=== PATIENT | female | born 2000 | race Caucasian/White ===

== ENCOUNTER 2019-08-06 16:44 | Emergency (ER) | payer SELFPAY ==
[2019-08-06 17:13] LABS: Urine Blood NEGATIVE (NEG); Urine Glucose NEGATIVE (NEG); Urine Protein TRACE (NEG); Urine Specific Gravity >1.030 (1.005-1.030)
[2019-08-06] MEDS ORDERED: AZITHROMYCIN 250 MG TAB ONE (17:44)
[2019-08-06] MEDS ORDERED: LIDOCAINE 1% MPF 2 ML AMPULE ONE (17:44)
[2019-08-06] MEDS ORDERED: CEFTRIAXONE 250 MG/VIAL ONE (17:44)
[2019-08-06 18:13] LABS: Urine Bacteria <20 /HPF (<20); Urine Culture Reflex Order NOT NEEDED; Urine Mucus HEAVY /HPF (NONE SEEN); Urine RBC <5 /HPF (NONE SEEN)
--- NOTE | 2019-08-06 18:22 | EDPHYS ---
Physician Documentation [facility] Name: Severiano Quevedo Age: 19 yrs Sex: Female : 2000 Arrival Date: 08/06/2019 Time: 16:46 Bed 13 Private MD: ED Physician Matthew Villarreal HPI: 08/06 17:20 This 19 yrs old Female presents to ER via Ambulatory with complaints of kb Vaginal Itching, Possible STI. 17:20 The patient presents with a possible exposure to a sexually transmitted disease, kb gonorrhea, urinary symptoms, dysuria. Onset: The symptoms/episode began/occurred today. Modifying factors: The symptoms are alleviated by nothing, the symptoms are aggravated by urinating. Associated signs and symptoms: Pertinent positives: dysuria. Severity of symptoms: At their worst the symptoms were mild, in the emergency department the symptoms are unchanged. The patient is sexually active, reportedly has a single partner, does not use protection during intercourse. The patient has not experienced similar symptoms in the past. The patient has not recently seen a physician. Pt reports her boyfriend was diagnosed with gonorrhea yesterday so she came to get tested. Denies vaginal discharge. Reports dysuria, but states "I get UTIs all the time." . 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 - Coronavirus screen:: The patient has NOT traveled to [place], [place], or [place] in the past 14 days. Proceed with normal triage process as indicated. - Social history:: Smoking status: Reported history of juuling and/or vaping. - Ebola Screening: : No symptoms or risks identified at this time. ROS: 17:19 Constitutional: Negative for fever, chills, and weight loss, Neck: Negative for injury, kb pain, and swelling, Cardiovascular: Negative for chest pain, palpitations, and edema, Respiratory: Negative for shortness of breath, cough, wheezing, and pleuritic chest pain, Abdomen/GI: Negative for abdominal pain, nausea, vomiting, diarrhea, and constipation, Back: Negative for injury and pain, MS/Extremity: Negative for injury and deformity, Skin: Negative for injury, rash, and discoloration, Neuro: Negative for headache, weakness, numbness, tingling, and seizure. 17:19 : Positive for urinary symptoms, burning with urination. Exam: 17:19 Constitutional: This is a well developed, well nourished patient who is awake, alert, kb and in no acute distress. Head/Face: Normocephalic, atraumatic. Neck: Trachea midline, no thyromegaly or masses palpated, and no cervical lymphadenopathy. Supple, full range of motion without nuchal rigidity, or vertebral point tenderness. No Meningismus. Chest/axilla: Normal chest wall appearance and motion. Nontender with no deformity. No lesions are appreciated. Cardiovascular: Regular rate and rhythm with a normal S1 and S2. No gallops, murmurs, or rubs. Normal PMI, no JVD. No pulse deficits. Respiratory: Lungs have equal breath sounds bilaterally, clear to auscultation and percussion. No rales, rhonchi or wheezes noted. No increased work of breathing, no retractions or nasal flaring. Abdomen/GI: Soft, non-tender, with normal bowel sounds. No distension or tympany. No guarding or rebound. No evidence of tenderness throughout. Back: No spinal tenderness. No costovertebral tenderness. Full range of motion. Skin: Warm, dry with normal turgor. Normal color with no rashes, no lesions, and no evidence of cellulitis. MS/ Extremity: Pulses equal, no cyanosis. Neurovascular intact. Full, normal range of motion. Neuro: Awake and alert, GCS 15, oriented to person, place, time, and situation. Cranial nerves II-XII grossly intact. Motor strength 5/5 in all extremities. Sensory grossly intact. Cerebellar exam normal. Normal gait. Vital Signs: 16:52 BP 116 / 81; Pulse 97; Resp 19 S; Temp 98.2(O); Pulse Ox 100% on R/A; Pain 0/10; jl7 17:52 BP 115 / 79; Pulse 92; Resp 17 S; Temp 97.9(O); Pulse Ox 100% on R/A; ca1 MDM: 16:54 Patient medically screened. kb 17:18 Data reviewed: vital signs, nurses notes. Data interpreted: Pulse oximetry: on room air kb is 100 %. Interpretation: normal. Counseling: I had a detailed discussion with the patient and/or guardian regarding: the historical points, exam findings, and any diagnostic results supporting the discharge/admit diagnosis, lab results, the need for outpatient follow up, an OB/Gyne specialist, to return to the emergency department if symptoms worsen or persist or if there are any questions or concerns that arise at home. 08/06 16:52 Order name: Urine Microscopic Only; Complete Time: 18:17 kb 08/06 17:11 Order name: Urine --Ancillary (enter results) kb 08/06 17:11 Order name: Urine Dipstick--Ancillary (enter results) kb 08/06 17:14 Order name: Urine --Ancillary; Complete Time: 17:18 EDMS 08/06 17:14 Order name: Urine Dipstick-Ancillary; Complete Time: 17:18 EDMS 08/06 16:52 Order name: Urine Test (obtain specimen); Complete Time: 17:11 kb 08/06 16:52 Order name: Urine Dipstick-Ancillary (obtain specimen); Complete Time: 17:10 kb Administered Medications: 17:45 Drug: Zithromax 1 grams Route: PO; ca1 18:08 Follow up: Response: No adverse reaction ca1 18:30 Follow up: Response: No adverse reaction ca1 17:48 Drug: Rocephin (cefTRIAXone) 250 mg Route: IM; Site: right gluteus; ca1 18:08 Follow up: Response: No adverse reaction ca1 18:30 Follow up: Response: No adverse reaction ca1 08/07 11:17 Not Given (Patient Refused): Zofran 4 mg PO once ca1 Disposition: 07:26 Co-signature as Attending Physician, Matthew Villarreal MD I agree with the assessment and ting plan of care. Disposition: 08/06/19 18:17 Discharged to Home. Impression: Unspecified sexually transmitted disease. - Condition is Stable. - Discharge Instructions: Sexually Transmitted Disease, [id number]. - Medication Reconciliation Form, Thank You Letter, Antibiotic Education, Prescription Opioid Use form. - Follow up: Emergency Department; When: As needed; Reason: Worsening of condition. Follow up: Private Physician; When: 2 - 3 days; Reason: Recheck today's complaints, Continuance of care, Re-evaluation by your physician. Signatures: Dispatcher [employer] Clara Franco, BILLBOARD ERECTOR HELPER-C BILLBOARD ERECTOR HELPER-Matthew Blanco MD MD cha Leal, Jahala, RN RN jl7 Aaliyah Portillo RN RN ca1 Corrections: (The following items were deleted from the chart) 08/06 18:37 18:17 08/06/2019 18:17 Discharged to Home. Impression: Unspecified sexually transmitted ca1 disease. Condition is Stable. Forms are Medication Reconciliation Form, Thank You Letter, Antibiotic Education, Prescription Opioid Use. Follow up: Emergency Department; When: As needed; Reason: Worsening of condition. Follow up: Private Physician; When: 2 - 3 days; Reason: Recheck today's complaints, Continuance of care, Re-evaluation by your physician. kb
--- NOTE | 2019-08-06 18:22 | ER ---
Nurse's Notes [facility] Name: Severiano Quevedo Age: 19 yrs Sex: Female : 2000 Arrival Date: 08/06/2019 Time: 16:46 Bed 13 Private MD: Diagnosis: Unspecified sexually transmitted disease Presentation: 08/06 16:48 Presenting complaint: Patient states: I need to be tested for gonorrhea, the mary I'm jl7 seing got his results back and he's positive. I'm having lower abdominal pain and mild burning with urination for a couple days but no other symptoms, no itching, no foul odor. Transition of care: patient was not received from another setting of care. Onset of symptoms was August 02, 2019. Risk Assessment: Do you want to hurt yourself or someone else? Patient reports no desire to harm self or others. Initial Sepsis Screen: Does the patient meet any 2 criteria? No. Patient's initial sepsis screen is negative. Does the patient have a suspected source of infection? No. Patient's initial sepsis screen is negative. Care prior to arrival: None. 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 - Coronavirus screen:: The patient has NOT traveled to [place], [place], or [place] in the past 14 days. Proceed with normal triage process as indicated. - Social history:: Smoking status: Reported history of juuling and/or vaping. - Ebola Screening: : No symptoms or risks identified at this time. Screenin:00 Abuse screen: Denies threats or abuse. Denies injuries from another. Nutritional ca1 screening: No deficits noted. Tuberculosis screening: No symptoms or risk factors identified. Fall Risk None identified. Assessment: 17:00 General: Appears in no apparent distress. comfortable, Behavior is calm, cooperative, ca1 appropriate for age. Pain: Denies pain. Neuro: Level of Consciousness is awake, alert, obeys commands, Oriented to person, place, time, situation, Appropriate for age. : Reports I do not have any symptoms but my partner is diagnosed with Gonorrhea so I come here to get tested and treated. Derm: Skin is intact, is healthy with good turgor, Skin is pink, warm \T\ dry. Musculoskeletal: Circulation, motion, and sensation intact. Capillary refill < 3 seconds, Range of motion: intact in all extremities. 17:52 Reassessment: Patient appears in no apparent distress at this time. Patient is alert, ca1 oriented x 3, equal unlabored respirations, skin warm/dry/pink. Vital Signs: 16:52 BP 116 / 81; Pulse 97; Resp 19 S; Temp 98.2(O); Pulse Ox 100% on R/A; Pain 0/10; jl7 17:52 BP 115 / 79; Pulse 92; Resp 17 S; Temp 97.9(O); Pulse Ox 100% on R/A; ca1 ED Course: 16:46 Patient arrived in ED. as 16:51 Triage completed. jl7 16:52 Clara Coleman FNP-C is PHCP. kb 16:52 Matthew Villarreal MD is Attending Physician. kb 16:52 Arm band placed on right wrist. jl7 17:00 Patient has correct armband on for positive identification. Bed in low position. Call ca1 light in reach. Side rails up X 1. 17:00 No provider procedures requiring assistance completed. Patient did not have IV access ca1 during this emergency room visit. 17:04 Aaliyah Portillo, RN is Primary Nurse. ca1 Administered Medications: 17:45 Drug: Zithromax 1 grams Route: PO; ca1 18:08 Follow up: Response: No adverse reaction ca1 18:30 Follow up: Response: No adverse reaction ca1 17:48 Drug: Rocephin (cefTRIAXone) 250 mg Route: IM; Site: right gluteus; ca1 18:08 Follow up: Response: No adverse reaction ca1 18:30 Follow up: Response: No adverse reaction ca1 08/07 11:17 Not Given (Patient Refused): Zofran 4 mg PO once ca1 Outcome: 08/06 18:17 Discharge ordered by . kb 18:36 Discharged to home ambulatory, with significant other. ca1 18:36 Condition: stable 18:36 Discharge instructions given to patient, Instructed on discharge instructions, follow up and referral plans. safe sex practices, Demonstrated understanding of instructions, follow-up care. 18:37 Patient left the ED. ca1 Signatures: Clara Coleman, IVETTE HIGHTOWER-Mini Savage Jahala, RN RN jl7 Aaliyah Portillo RN RN ca1
[2019-08-06 20:34] VITALS: O2SAT 100
[2019-08-06 20:35] VITALS: BP 115/79; TEMP 97.9
== END 2019-08-06 18:37 | disposition home or self-care (01) ==
LOC: ER 16:44
DX: A64 Unspecified sexually transmitted disease (principal)
CPT/HCPCS: 81003; 81015; 81025; 96372; 99283; J0696; J2001

== ENCOUNTER 2020-01-24 18:28 | Emergency (ER) | payer SELFPAY ==
[2020-01-24 19:55] LABS: Absolute Lymphocytes (CBC) 1.7 K/uL (0.7-4.9); Basophils % 0.1 % (0-1.3); Hematocrit 40.6 % (36.0-45.0); Lymphocytes % 22.3 % (15.3-44.8); RBC Red Blood Cell Count 4.82 M/uL (3.86-4.86)
[2020-01-24 20:03] LABS: Protime INR 0.97
[2020-01-24 20:04] LABS: Barbiturates NEGATIVE (NEGATIVE); Benzodiazepines NEGATIVE (NEGATIVE); Cocaine NEGATIVE (NEGATIVE); METHAMPHETAM NEGATIVE (NEGATIVE); Methadone NEGATIVE (NEGATIVE); Opiates NEGATIVE (NEGATIVE); Phencyclidine NEGATIVE (NEGATIVE); THC Cannibis NEGATIVE (NEGATIVE)
--- NOTE | 2020-01-24 20:09 | RAD REPORT ---
EXAM DESCRIPTION: [place] Single View01/24/2020 7:58 pm CLINICAL HISTORY: Palpitations COMPARISON: 2014 FINDINGS: The lungs appear clear of acute infiltrate. The heart is normal size IMPRESSION: No acute abnormalities displayed
[2020-01-24 20:21] LABS: ALT/SGPT 16 U/L (12-78); AST/SGOT 14 U/L (15-37); Albumin 4.4 g/dL (3.4-5.0); Alkaline Phosphatase 62 U/L (45-117); BUN Blood Urea Nitrogen 10 mg/dL (7-18); Bicarbonate 25 mmol/L (21-32); Bilirubin Direct 0.1 mg/dL (0-0.2); Bilirubin Total 0.4 mg/dL (0.2-1.0); Glucose Level 74 mg/dL (74-106); Magnesium 2.2 mg/dL (1.8-2.4); NT PRO-BNP 12 pg/mL (<125); Potassium 3.6 mmol/L (3.5-5.1); Protein, Total 7.8 g/dL (6.4-8.2); Sodium Level 143 mmol/L (136-145); Troponin (Emerg Dept Use Only) < 0.02 ng/mL (0.0-0.045)
[2020-01-24 20:39] LABS: Urine Blood NEGATIVE (NEG); Urine Glucose NEGATIVE (NEG); Urine Protein NEGATIVE (NEG); Urine Specific Gravity 1.015 (1.005-1.030)
--- NOTE | 2020-01-24 22:09 | ER ---
Nurse's Notes [facility] Name: Severiano Quevedo Age: 19 yrs Sex: Female : 2000 Arrival Date: 01/24/2020 Time: 18:33 Bed 19 Private MD: Diagnosis: Chest Pain;Dizziness;Dyspnea;Anxiety;Urinary tract infection, site not specified Presentation: 01/23 18:37 Chief complaint: Patient states: woke up this morning with purple feet, went to work. sv Went to eat and started having SOB, chest pain, with sharp right sided chest pain, intermittent blurry vision, fatigue, and right leg pain/numbness today. States she felt jittery about an hour ago and now feels like her body feels stiff, foggy headed, dizziness, nausea. Coronavirus screen: Patient denies a cough. Patient reports shortness of breath or difficulty breathing. Patient denies measured and/or subjective temperature greater than 100.4F prior to today's visit. Patient denies travel on a cruise ship or to a country the [facility] currently lists as an affected area. Patient denies contact with known and/or suspected case of COVID-19. Patient instructed to continue to wear a mask when interacting with others. Patient moved to private room, placed in contact and droplet isolation with eye protection until further assessment. Ebola Screen: No symptoms or risks identified at this time. Risk Assessment: Do you want to hurt yourself or someone else? Patient reports no desire to harm self or others. Onset of symptoms was January 24, 2020. 18:37 Method Of Arrival: Ambulatory sv 18:37 Acuity: SIMON 2 sv 18:37 Initial Sepsis Screen: Does the patient meet any 2 criteria? HR > 90 bpm. No. Patient's sv initial sepsis screen is negative. Does the patient have a suspected source of infection? No. Patient's initial sepsis screen is negative. 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 - Social history:: Smoking status: Reported history of juuling and/or vaping. Screenin:12 Abuse screen: Denies threats or abuse. Nutritional screening: No deficits noted. ll1 Tuberculosis screening: No symptoms or risk factors identified. Fall Risk None identified. IV access (20 points). Total Whelan Fall Scale indicates No Risk (0-24 pts). Assessment: 19:10 General: Appears in no apparent distress. Behavior is calm, cooperative, appropriate ll1 for age. Pain: Complains of pain in right chest Quality of pain is described as sharp, Pain began 4 hours ago. Is intermittent. Neuro: Level of Consciousness is awake, alert, obeys commands, Oriented to person, place, time, situation, Appropriate for age [employer] are equal bilaterally Moves all extremities. Full function Gait is steady, Speech is normal, Facial symmetry appears normal, Reports dizziness, headache paresthesias. Cardiovascular: Reports chest pain, fatigue, lightheadedness, shortness of breath, Heart tones S1 S2 Capillary refill < 3 seconds Clubbing of nail beds is absent JVD is absent Patient's skin is warm and dry. Rhythm is regular. Respiratory: Reports shortness of breath at rest Airway is patent Trachea midline Respiratory effort is even, unlabored, Respiratory pattern is regular, symmetrical, Breath sounds are clear bilaterally. Denies cough. GI: Abdomen is flat, Bowel sounds present X 4 quads. Abd is soft and non tender X 4 quads. Reports nausea. Musculoskeletal: Circulation, motion, and sensation intact. Capillary refill < 3 seconds, Reports pain in R leg. 19:53 Pain: Denies pain. mt2 20:00 Reassessment: Patient and/or family updated on plan of care and expected duration. Pain mt2 level reassessed. Patient states feeling better. Pain: Denies pain. 21:00 Also complains of no other symptoms. Reassessment: Patient and/or family updated on mt2 plan of care and expected duration. Pain level reassessed. Patient states symptoms have improved. Pain: Denies pain. 22:00 Reassessment: Patient and/or family updated on plan of care and expected duration. Pain mt2 level reassessed. Patient states feeling better. Patient states symptoms have improved. Pain: Denies pain. 22:30 Pain: Pain does not radiate. mt2 Vital Signs: 18:40 BP 121 / 85; Pulse 106; Resp 14; Temp 98.2; Pulse Ox 100% ; Weight 52.16 kg; Height 5 sv ft. 2 in. (157.48 cm); 19:53 BP 100 / 64; Pulse 72; Resp 16; Pulse Ox 100% ; Pain 0/10; mt2 20:00 BP 110 / 77; Pulse 73; Resp 16; Pulse Ox 99% ; Pain 0/10; mt2 21:00 BP 119 / 71; Pulse 79; Resp 16; Pulse Ox 100% ; Pain 0/10; mt2 22:29 BP 109 / 72; Pulse 70; Resp 16; Pulse Ox 99% ; Pain 0/10; mt2 18:40 Body Mass Index 21.03 (52.16 kg, 157.48 cm) sv ED Course: 18:33 Patient arrived in ED. bp1 18:36 Arm band placed on. sv 18:39 Triage completed. sv 18:43 Rupert Montejo, RN is Primary Nurse. ll1 18:55 EKG done, by ED staff, reviewed by Ralph Fenton MD. jp3 19:02 Ralph Fenton MD is Attending Physician. mh7 19:12 Patient has correct armband on for positive identification. Placed in gown. Bed in low ll1 position. Call light in reach. 19:32 Primary Nurse role handed off by Rupert Montejo RN mt2 19:32 Zhanna Newsome, ARELY is Primary Nurse. mt2 19:37 Initial lab(s) drawn, by mt, sent to lab. Urine collected: clean catch specimen, clear, jp3 lashon colored, Legal drug screen obtained per protocol. Inserted saline lock: 20 gauge in right antecubital area, using aseptic technique. Blood collected. Patient maintains SpO2 saturation greater than 95% on room air. 19:53 monitoring tech on. Pulse ox on. NIBP on. mt2 19:58 XRAY Chest (1 view) In Process Unspecified. EDMS 21:22 CT Head Brain wo Cont In Process Unspecified. EDMS 22:29 No provider procedures requiring assistance completed. IV discontinued, intact, mt2 bleeding controlled, No redness/swelling at site. Pressure dressing applied. Administered Medications: No medications were administered Point of Care Testing: Urine : 19:37 hCG Reading: Negative; Control Reading: Positive; jp3 Outcome: 22:08 Discharge ordered by . 7 22:29 Discharged to home ambulatory. mt2 22:29 Condition: good 22:29 Discharge instructions given to patient, Instructed on discharge instructions, follow up and referral plans. medication usage, Demonstrated understanding of instructions, follow-up care, medications, Prescriptions given X 1. 22:30 Patient left the ED. mt2 Signatures: Dispatcher [employer] EDMS Ceci Ruffin RN RN Eber Melvin jp3 Rupert Montejo RN RN ll1 Shabana Comer [facility] Ralph Fenton MD MD 7 Zhanna Newsome RN RN mt2 Corrections: (The following items were deleted from the chart) 18:42 18:37 Chief complaint: Patient states: woke up this morning with purple feet, went to work. Went to eat and started having SOB, chest pain, with sharp right sided chest pain, intermittent blurry vision, fatigue, and right leg pain/numbness today. 18:42 18:37 Acuity: SIMON 3 [facility]
--- NOTE | 2020-01-24 22:09 | EDPHYS ---
Physician Documentation [facility] Name: Severiano Quevedo Age: 19 yrs Sex: Female : 2000 Arrival Date: 01/24/2020 Time: 18:33 Bed 19 Private MD: ED Physician Ralph Fenton HPI: 01/23 19:18 This 19 yrs old Female presents to ER via Ambulatory with complaints of Chest mh7 Pain, Palpitations, Dizziness, Blurred Vision. 19:18 The patient or guardian reports chest pain that is located primarily in the anterior mh7 chest wall, right. The pain does not radiate. Associated signs and symptoms: Pertinent positives: dizziness, nausea, palpitations, shortness of breath, Pertinent negatives: abdominal pain, cough, diaphoresis, headache, lower extremity pain, lower extremity swelling, near syncope, recent travel, syncope, vomiting. The chest pain is described as tightness. Duration: The patient or guardian reports multiple episodes, that are intermittent, that wax and wane, with no pattern. Modifying factors: The symptoms are alleviated by nothing. the symptoms are aggravated by nothing. Severity of pain: At its worst the pain was moderate today, in the emergency department the pain has improved markedly. Patient states intermittent episodes of chest tightness, dizziness, palpitations, SOB, nausea for the past 2-3 weeks. She saw her PCP 2 days ago and had normal test results. She had symptoms reoccur today. She has a history of anxiety but has not taken any medication in the past. She admits some stress due to going through a divorce. She denies any depression, suicidal or homicidal ideation, or auditory or visual hallucinations.. 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 - Social history:: Smoking status: Reported history of juuling and/or vaping. ROS: 19:18 Constitutional: Negative for fever, chills, and weight loss, Eyes: Negative for injury, mh7 pain, redness, and discharge, ENT: Negative for injury, pain, and discharge, Neck: Negative for injury, pain, and swelling, Back: Negative for injury and pain, : Negative for injury, bleeding, discharge, and swelling, MS/Extremity: Negative for injury and deformity, Skin: Negative for injury, rash, and discoloration, Allergy/Immunology: Negative for hives, rash, and allergies, Endocrine: Negative for neck swelling, polydipsia, polyuria, polyphagia, and marked weight changes, Hematologic/Lymphatic: Negative for swollen nodes, abnormal bleeding, and unusual bruising. Exam: 19:18 Head/Face: Normocephalic, atraumatic. Eyes: Pupils equal round and reactive to light, mh7 extra-ocular motions intact. Lids and lashes normal. Conjunctiva and sclera are non-icteric and not injected. Cornea within normal limits. Periorbital areas with no swelling, redness, or edema. Neck: Trachea midline, no thyromegaly or masses palpated, and no cervical lymphadenopathy. Supple, full range of motion without nuchal rigidity, or vertebral point tenderness. No Meningismus. Chest/axilla: Normal chest wall appearance and motion. Nontender with no deformity. No lesions are appreciated. Cardiovascular: Regular rate and rhythm with a normal S1 and S2. No gallops, murmurs, or rubs. Normal PMI, no JVD. No pulse deficits. Respiratory: Lungs have equal breath sounds bilaterally, clear to auscultation and percussion. No rales, rhonchi or wheezes noted. No increased work of breathing, no retractions or nasal flaring. Abdomen/GI: Soft, non-tender, with normal bowel sounds. No distension or tympany. No guarding or rebound. No evidence of tenderness throughout. Back: No spinal tenderness. No costovertebral tenderness. Full range of motion. Skin: Warm, dry with normal turgor. Normal color with no rashes, no lesions, and no evidence of cellulitis. MS/ Extremity: Pulses equal, no cyanosis. Neurovascular intact. Full, normal range of motion. Neuro: Awake and alert, GCS 15, oriented to person, place, time, and situation. Cranial nerves II-XII grossly intact. Motor strength 5/5 in all extremities. Sensory grossly intact. Cerebellar exam normal. Normal gait. Psych: Awake, alert, with orientation to person, place and time. Behavior, mood, and affect are within normal limits. 19:18 Constitutional: The patient appears in no acute distress, alert, awake, anxious. 19:27 ECG was reviewed by the Attending Physician. [facility] Vital Signs: 18:40 BP 121 / 85; Pulse 106; Resp 14; Temp 98.2; Pulse Ox 100% ; Weight 52.16 kg; Height 5 sv ft. 2 in. (157.48 cm); 19:53 BP 100 / 64; Pulse 72; Resp 16; Pulse Ox 100% ; Pain 0/10; mt2 20:00 BP 110 / 77; Pulse 73; Resp 16; Pulse Ox 99% ; Pain 0/10; mt2 21:00 BP 119 / 71; Pulse 79; Resp 16; Pulse Ox 100% ; Pain 0/10; mt2 22:29 BP 109 / 72; Pulse 70; Resp 16; Pulse Ox 99% ; Pain 0/10; mt2 18:40 Body Mass Index 21.03 (52.16 kg, 157.48 cm) sv MDM: 19:15 Patient medically screened. [facility] 22:05 Differential diagnosis: acute myocardial infarction, acute pericarditis, anxiety, chest [facility] wall pain, costochondritis, pneumonia, pneumothorax, pulmonary embolus. HEART Score: History: Slightly Suspicious (0), ECG: Normal (0), Age: < or = 45 years (0), Risk Factors: No Risk Factors Known (0), Troponin: < or = 1 x Normal Limit (0), Total Score = 0. Data reviewed: vital signs, nurses notes, lab test result(s), cardiac enzymes, troponin i, CBC, electrolytes, urinalysis, urine drug screen. Data interpreted: pvc monitor: rate is 100 beats/min, rhythm is normal sinus rhythm, regular, Interpretation: normal rate, normal rhythm, Pulse oximetry: on room air is 100 %. Interpretation: normal. Counseling: I had a detailed discussion with the patient and/or guardian regarding: the historical points, exam findings, and any diagnostic results supporting the discharge/admit diagnosis, lab results, radiology results, the need for outpatient follow up, to return to the emergency department if symptoms worsen or persist or if there are any questions or concerns that arise at home. Response to treatment: the patient's symptoms have resolved after treatment, the patient's blood pressure is in an acceptable range, mental status has returned to baseline, the patient no longer shows bradycardia, the patient is not short of breath, the patient is not tachycardic, the patient's pain is gone, the patient's temperature has normalized. 01/23 19:17 Order name: Basic Metabolic Panel; Complete Time: 20:53 01/23 19:17 Order name: CBC with Diff; Complete Time: 20:53 01/23 19:17 Order name: LFT's; Complete Time: 20:53 7 01/23 19:17 Order name: Magnesium; Complete Time: 20:53 01/23 19:17 Order name: NT PRO-BNP; Complete Time: 20:53 01/23 19:17 Order name: PT-INR; Complete Time: 20:53 01/23 19:17 Order name: Troponin (emerg Dept Use Only); Complete Time: 20:53 01/23 19:17 Order name: XRAY Chest (1 view); Complete Time: 20:53 01/23 19:17 Order name: EKG; Complete Time: 19:18 01/23 19:17 Order name: DD; Complete Time: 20:53 01/23 19:17 Order name: UDS; Complete Time: 20:53 01/23 19:17 Order name: TSH; Complete Time: 20:53 01/23 19:55 Order name: Urine Dipstick--Ancillary (enter results); Complete Time: 20:53 [facility] 01/23 20:54 Order name: CT Head Brain wo Cont 01/23 19:17 Order name: Cardiac monitoring; Complete Time: 19:49 01/23 19:17 Order name: EKG - Nurse/Tech; Complete Time: 19:30 01/23 19:17 Order name: IV Saline Lock; Complete Time: 19:49 01/23 19:17 Order name: Labs collected and sent; Complete Time: 19:49 01/23 19:17 Order name: O2 Per Protocol; Complete Time: 19:49 01/23 19:17 Order name: O2 Sat Monitoring; Complete Time: 19:49 01/23 19:17 Order name: Urine Dipstick-Ancillary (obtain specimen); Complete Time: 19:49 01/23 19:17 Order name: Urine Test (obtain specimen); Complete Time: 19:49 mh7 EC:27 Rate is 88 beats/min. Rhythm is regular, Normal Sinus Rhythm. QRS [place] is Normal. [place] mh7 interval is normal. QRS interval is normal. QT interval is normal. No Q waves. T waves are Normal. No ST changes noted. Clinical impression: Normal ECG. Administered Medications: No medications were administered Point of Care Testing: Urine : 19:37 hCG Reading: Negative; Control Reading: Positive; jp3 Disposition: 01/24/20 22:08 Discharged to Home. Impression: Chest Pain, Dizziness, Dyspnea, Anxiety, Urinary tract infection, site not specified. - Condition is Stable. - Discharge Instructions: Urinary Tract Infection, Adult, Shortness of Breath, [id number], Nonspecific Chest Pain, [id number], Generalized Anxiety Disorder, Dizziness, [id number]. - Prescriptions for Keflex 500 mg Oral Capsule - take 1 capsule by ORAL route every 12 hours for 7 days; 14 capsule. - Medication Reconciliation Form, Thank You Letter, Antibiotic Education, Prescription Opioid Use form. - Follow up: Private Physician; When: 1 - 2 days; Reason: Worsening of condition, Recheck today's complaints, Continuance of care, Re-evaluation by your physician. - Problem is an ongoing problem. - Symptoms have improved. Signatures: Dispatcher [employer] Ceci Godinez RN RN Ralph Young MD MD [facility] Zhanna Newsome RN RN mt2 Corrections: (The following items were deleted from the chart) 22:30 22:08 01/24/2020 22:08 Discharged to Home. Impression: Chest Pain; Dizziness; Dyspnea; mt2 Anxiety; Urinary tract infection, site not specified. Condition is Stable. Forms are Medication Reconciliation Form, Thank You Letter, Antibiotic Education, Prescription Opioid Use. Follow up: Private Physician; When: 1 - 2 days; Reason: Worsening of condition, Recheck today's complaints, Continuance of care, Re-evaluation by your physician. Problem is an ongoing problem. Symptoms have improved. [facility]
[2020-01-24 22:40] VITALS: TEMP 98.2
[2020-01-24 22:49] VITALS: BP 109/72; O2SAT 99
--- NOTE | 2020-01-26 09:56 | RAD REPORT ---
EXAM DESCRIPTION: CT HEAD WITHOUT IV CONTRAST CLINICAL HISTORY: Dizziness. COMPARISON: None. TECHNIQUE: CT scan of the brain was performed without IV contrast. This exam was performed accordi ng to our departmental dose-optimization program, which includes automated exposure control, adjustme nt of the mA and/or kV according to patient size and/or use of iterative reconstruction technique. FINDINGS: The ventricles, cisterns, and sulci are age-appropriate. No evidence of acute infarction, intracranial hemorrhage, extra-axial fluid collection, or midline shift. No air-fluid levels are seen in the paranasal sinuses to suggest acute sinusitis. No depressed skull fracture. IMPRESSION: No acute intracranial findings. Electronically signed by: Mert Barrios MD 01/24/2020 9:33 PM CDT Due to temporary technical issues with the PACS/Fluency reporting system, reports are being signed by the in house radiologist without review as a courtesy to ensure prompt reporting. The interpreting r adiologist is fully responsible for the content of the report.
== END 2020-01-24 22:30 | disposition home or self-care (01) ==
LOC: ER 18:28
DX: F41.9 Anxiety disorder, unspecified (principal); R42 Dizziness and giddiness; R06.00 Dyspnea, unspecified; N39.0 Urinary tract infection, site not specified; Z72.0 Tobacco use
CPT/HCPCS: 36415; 70450; 71045; 80048; 80076; 80307; 81003; 83735; 83880; 84443; 84484; 85025; 85379; 85610; 93005; 99285

== ENCOUNTER 2022-01-27 07:20 | Emergency (ER) | payer SELFPAY ==
--- OUTSIDE RECORDS SUMMARY | 2022-01-27 07:23 | XMS REPORT | Continuity of Care Document ---
:2000 Author Organization [facility] t Address [address] [place] [address] Care Team Providers Name Role Phone Pcp, Does Not Have A Primary Care Physician CARISSA LOPEZ Attending Clinician Unavailable Carissa Lopez MD Attending Clinician 2, Lab Attending Clinician Unavailable BONIFACIO Attending Clinician Unavailable Bonifacio HERNANDEZ Attending Clinician Doctor Unassigned, Name Attending Clinician Unavailable SHOSHANA PARNELL Attending Clinician Unavailable Shoshana Black Attending Clinician RODRÍGUEZ Admitting Clinician Unavailable Payers Payer Name Policy Type Policy Number Effective Date Expiration Date [facility] [id number] 2021 CHOICE MEDICAID 00:00:00 Problems Condition Condition Condition Status Onset Resolution Last Treating Co mments Source Name Details Category Date Date Treatment Clinician Date High risk High risk Disease Active Uni vers , , 6-09 [place] Nausea and Nausea and Disease Active U nivers vomiting vomiting 09 ity of during during 00:00: [place] 00 Medi roney prior to prior to Branch 22 weeks 22 weeks gestation gestation Anxiety Anxiety Disease Active Univers disorder, disorder, 6-09 ity of unspecifie unspecifie [place] d type d type 00 Medical Branch Depression Depression Disease Active U nivers during during 6-09 [place]y of , , [place] antepartum antepartum 00 Dc dical Branch Anemia of Anemia of Disease Active Uni vers 5-19 ity of 00:00: [address] Branch Disease Active U nivers care and care and 5-18 [place]y of examinatio examinatio [place] 00 Medical immediatel immediatel Br anch y after y after delivery delivery Rh Rh Disease Active Overview: Univer s negative, negative, 5-18 Formattin i ty of delivered, delivered, 00:00: g of this [place] current current 00 note Medical hospitaliz hospitaliz might be Branch ation ation different from the original. 11/23/18 - Rhogam given 38 weeks 38 weeks Disease Active Unive rs gestation gestation 5-18 ity of of of 00:00: [place] 00 [facility] Branch Single Single Disease Active Univers live live 5-18 it y of 00:00: [address] Branch Disease Active Univers (normal (normal 5-18 ity of spontaneou spontaneou [place] vaginal s vaginal 00 [facility] delivery) delivery) Bran ch Primary Primary Disease Active Univers hypothyroi hypothyroi 6-07 it y of dism dism 00:00: [place] [id number] Medical Branch Primary Primary Disease Active Univers hypothyroi hypothyroi 6-07 it y of dism dism 00:00: [address] Allergies, Adverse Reactions, Alerts Allergy Allergy Status Severity Reaction(s) Onset Inactive Treating Comm ents Source Name Type Date Date Clinician NO KNOWN Drug Active Univers ALLERGIE Class ity of S [facility] Social History Social Habit Start Date Stop Date Quantity Comments Source ASSERTION 2021-10-28 University 00:00:00 [facility] Exposure to 2022-01-06 2022-01-16 Not sure [facility] SARS-CoV-2 00:00:00 15:51:00 [facility] (event) [place] Alcohol intake 2021-12-15 2021-12-15 [facility] 00:00:00 00:00:00 non-drinker of [facility] [place] [facility] alcohol (finding) [place] Tobacco use and 2018-10-28 2018-10-28 Smokeless tobacco Un iversity of exposure 00:00:00 00:00:00 non-user [facility] Sex Assigned At [birth year] Universit y of 00:00:00 00:00:00 [facility] Smoking Status Start Date Stop Date Source Never smoked tobacco [facility] Medications Ordered Filled Start Stop Current Ordering Indication Dosage Frequency Signature Comments Components Source Medication Medication Date Date Medication? Clinician (SIG) Name Name PN Yes Take by Univers no.95/angelique 7-11 mouth. ity of us 16:16: [place] fum/folic 56 Medical ac Branch ( ORAL) PNV 0 Yes Take by Univers no.95/angelique 7-11 mouth. ity of us 16:16: [place] fum/folic 56 Medical ac Branch ( ORAL) PNV Yes Take by Univers no.95/angelique 7-11 mouth. ity of 16:16: [place] fum/folic 56 Medical Branch ( ORAL) oxyCODONE 5 2021- Yes [id number] 5mg Take 1 Uni vers mg 6-17 06-25 tablet by ity of immediate 00:00: 04:59 mouth [place] release 00 :00 every 6 Medical tablet (six) Branch hours as needed for Pain (scale 7-10) for up to 7 days. Indication s: acute pain 2021- No Take by [facility] ers vit 6-09 06-09 mouth. ity of calc,iron,f 23:06: 00:00 [place] olic 20 :00 Medical ( Branch VITAMIN ORAL) diphenhydrA 2021-0 Yes 25mg Take 25 mg Univers MINE 6-09 by mouth ity of (BENADRYL) 14:20: every 6 [place] 25 [place] 47 (six) Medical capsule hours as Branch needed for Allergies. diphenhydrA 2021-0 Yes 25mg Take 25 mg Univers MINE 6-09 by mouth ity of (BENADRYL) 14:20: [place] 25 mg 47 (six) Medical capsule hours as Branch needed for Allergies. diphenhydrA 2021-0 Yes 25mg Take 25 mg Univers MINE 6-09 by mouth ity of (BENADRYL) 14:20: [place] 25 mg 47 (six) Medical capsule hours as Branch needed for Allergies. diphenhydrA 2021-0 Yes 25mg Take 25 mg Univers MINE 6-09 by mouth ity of (BENADRYL) 14:20: every 6 [place] 25 mg 47 (six) Medical capsule hours as Branch needed for Allergies. diphenhydrA 2021-0 Yes 25mg Take 25 mg Univers MINE 6-09 by mouth ity of (BENADRYL) 14:20: every 6 [place] 25 mg 47 (six) Medical capsule hours as Branch needed for Allergies. diphenhydrA 2021-0 Yes 25mg Take 25 mg Univers MINE 6-09 by mouth ity of (BENADRYL) 14:20: every 6 [place] 25 mg 47 (six) Medical capsule hours as Branch needed for Allergies. diphenhydrA 2021-0 Yes 25mg Take 25 mg Univers MINE 6-09 by mouth ity of (BENADRYL) 14:20: every 6 [place] 25 mg 47 (six) Medical capsule hours as Branch needed for Allergies. diphenhydrA 2021-0 Yes 25mg Take 25 mg Univers MINE 6-09 by mouth ity of (BENADRYL) 14:20: every 6 [place] 25 mg 47 (six) Medical capsule hours as Branch needed for Allergies. pyridoxine, 2021-0 Yes [id number] 25mg Take 1 Univers VITAMIN 6-09 tablet by ity of B-6, 00:00: mouth [place] (VITAMIN 00 every 6 Medical B-6) 25 mg (six) Branch tablet hours as needed for Nausea and Vomiting (N/V). doxylamine 2021-0 Yes [id number] 25mg Take 1 U nivers (UNISOM, 6-09 tablet by ity of DOXYLAMINE, [place]:00[place] 25 mg 00 bedtime as Medica l tablet needed for Branch Nausea and Vomiting (N/V). metoclopram 2021-0 Yes [id number] 10mg Take 1 Univers kaden HCl 10 6-09 tablet by ity of mg tablet 00:00: mouth [place] 00 every 6 Medical (six) Branch hours as needed for Nausea and Vomiting (N/V). busPIRone 5 0 Yes [id number] 5mg Take 1 Univers mg tablet 6-09 tablet by ity o f 00:00: mouth 2 [place] 00 (two) Medical times Branch daily. pyridoxine, 0 Yes [id number] 25mg Take 1 Univers VITAMIN 6-09 tablet by ity of B-6, 00:00: mouth [place] (VITAMIN 00 every 6 Medical B-6) 25 mg (six) Branch tablet hours as needed for Nausea and Vomiting (N/V). doxylamine 0 Yes [id number] 25mg Take 1 U nivers (UNISOM, 6-09 tablet by ity of DOXYLAMINE, 00:00: [place] 25 mg 00 bedtime as Medica l tablet needed for Branch Nausea and Vomiting (N/V). metoclopram 0 Yes [id number] 10mg Take 1 Univers kaden HCl 10 6-09 tablet by ity of mg tablet 00:00: mouth [place] 00 every 6 Medical (six) Branch hours as needed for Nausea and Vomiting (N/V). busPIRone 0 Yes [id number] 5mg Take 1 Univers mg tablet 6-09 tablet by ity o f 00:00: mouth 2 [place] 00 (two) Medical times Branch daily. pyridoxine, 0 Yes [id number] 25mg Take 1 Univers VITAMIN 6-09 tablet by ity of B-6, 00:00: mouth [place] (VITAMIN 00 every 6 Medical B-6) 25 mg (six) Branch tablet hours as needed for Nausea and Vomiting (N/V). doxylamine 0 Yes [id number] 25mg Take 1 U nivers (UNISOM, 6-09 tablet by ity of DOXYLAMINE, 00:00: [place] 25 mg 00 bedtime as Medica l tablet needed for Branch Nausea and Vomiting (N/V). metoclopram 2021-0 Yes [id number] 10mg Take 1 Univers kaden HCl 10 6-09 tablet by ity of mg tablet 00:00: mouth [place] 00 every 6 Medical (six) Branch hours as needed for Nausea and Vomiting (N/V). busPIRone 5 0 Yes [id number] 5mg Take 1 Univers mg tablet 6-09 tablet by ity o f 00:00: mouth 2 [place] 00 (two) Medical times Branch daily. pyridoxine, 2021-0 Yes [id number] 25mg Take 1 Univers VITAMIN 6-09 tablet by ity of B-6, 00:00: mouth [place] (VITAMIN 00 every 6 Medical B-6) 25 mg (six) Branch tablet hours as needed for Nausea and Vomiting (N/V). doxylamine 2021-0 Yes [id number] 25mg Take 1 U nivers (UNISOM, 6-09 tablet by ity of DOXYLAMINE, 00:00: [place] 25 mg 00 bedtime as Medica l tablet needed for Branch Nausea and Vomiting (N/V). metoclopram 2021-0 Yes [id number] 10mg Take 1 Univers kaden HCl 10 6-09 tablet by ity of mg tablet 00:00: mouth [place] 00 every 6 Medical (six) Branch hours as needed for Nausea and Vomiting (N/V). busPIRone 5 2021-0 Yes [id number] 5mg Take 1 Univers mg tablet 6-09 tablet by ity o f 00:00: mouth 2 [place] 00 (two) Medical times Branch daily. pyridoxine, 2021-0 Yes [id number] 25mg Take 1 Univers VITAMIN 6-09 tablet by ity of B-6, 00:00: mouth [place] (VITAMIN 00 every 6 Medical B-6) 25 mg (six) Branch tablet hours as needed for Nausea and Vomiting (N/V). doxylamine 2021-0 Yes [id number] 25mg Take 1 U nivers (UNISOM, 6-09 tablet by ity of DOXYLAMINE, 00:00: [place] 25 mg 00 bedtime as Medica l tablet needed for Branch Nausea and Vomiting (N/V). metoclopram 2021-0 Yes [id number] 10mg Take 1 Univers kaden HCl 10 6-09 tablet by ity of mg tablet 00:00: mouth [place] 00 every 6 Medical (six) Branch hours as needed for Nausea and Vomiting (N/V). busPIRone 5 2021-0 Yes [id number] 5mg Take 1 Univers mg tablet 6-09 tablet by ity o f 00:00: mouth 2 [place] 00 (two) Medical times Branch daily. pyridoxine, 2021-0 Yes [id number] 25mg Take 1 Univers VITAMIN 6-09 tablet by ity of B-6, 00:00: mouth [place] (VITAMIN 00 every 6 Medical B-6) 25 mg (six) Branch tablet hours as needed for Nausea and Vomiting (N/V). doxylamine 2021-0 Yes [id number] 25mg Take 1 U nivers (UNISOM, 6-09 tablet by ity of DOXYLAMINE, 00:00: [place] 25 mg 00 bedtime as Medica l tablet needed for Branch Nausea and Vomiting (N/V). metoclopram 0 Yes [id number] 10mg Take 1 Univers kaden HCl 10 6-09 tablet by ity of mg tablet 00:00: mouth [place] 00 every 6 Medical (six) Branch hours as needed for Nausea and Vomiting (N/V). busPIRone 5 0 Yes [id number] 5mg Take 1 Univers mg tablet 6-09 tablet by ity o f 00:00: mouth 2 [place] 00 (two) Medical times Branch daily. pyridoxine, 0 Yes [id number] 25mg Take 1 Univers VITAMIN 6-09 tablet by ity of B-6, 00:00: mouth [place] (VITAMIN 00 every 6 Medical B-6) 25 mg (six) Branch tablet hours as needed for Nausea and Vomiting (N/V). doxylamine 0 Yes [id number] 25mg Take 1 U nivers (UNISOM, 6-09 tablet by ity of DOXYLAMINE, 00:00: [place] 25 mg 00 bedtime as Medica l tablet needed for Branch Nausea and Vomiting (N/V). metoclopram 2021-0 Yes [id number] 10mg Take 1 Univers kaden HCl 10 6-09 tablet by ity of mg tablet 00:00: mouth [place] 00 every 6 Medical (six) Branch hours as needed for Nausea and Vomiting (N/V). busPIRone 5 0 Yes [id number] 5mg Take 1 Univers mg tablet 6-09 tablet by ity o f 00:00: mouth 2 [place] 00 (two) Medical times Branch daily. pyridoxine, 0 Yes [id number] 25mg Take 1 Univers VITAMIN 6-09 tablet by ity of B-6, 00:00: mouth [place] (VITAMIN 00 every 6 Medical B-6) 25 mg (six) Branch tablet hours as needed for Nausea and Vomiting (N/V). doxylamine Yes [id number] 25mg Take 1 U nivers (UNISOM, 6-09 tablet by ity of DOXYLAMINE, 00:00: [place] 25 mg 00 bedtime as Medica l tablet needed for Branch Nausea and Vomiting (N/V). metoclopram Yes [id number] 10mg Take 1 Univers kaden HCl 10 - tablet by ity of mg tablet 00:00: mouth [place] 00 every 6 Medical (six) Branch hours as needed for Nausea and Vomiting (N/V). busPIRone 5 Yes [id number] 5mg Take 1 Univers mg tablet -09 tablet by ity o f 00:00: mouth 2 [place] 00 (two) Medical times Branch daily. diphenhydrA 2018-07 Yes 25mg Take 25 mg Univers MINE 0-08 by mouth ity of (BENADRYL) 11:07: every 6 [place] 25 mg 32 (six) Medical capsule hours as Branch needed for Allergies. diphenhydrA 2018-07 Yes 25mg Take 25 mg Univers MINE 0-08 by mouth ity of (BENADRYL) 11:07: every 6 [place] 25 mg 32 (six) Medical capsule hours as Branch needed for Allergies. diphenhydrA 2018-07 Yes 25mg Take 25 mg Univers MINE 0-08 by mouth ity of (BENADRYL) 11:07: every 6 [place] 25 mg 32 (six) Medical capsule hours as Branch needed for Allergies. cetirizine 2018-07 Yes [id number] 20mg Take 2 U nivers 10 mg 0-08 tablets by ity of tablet 00:00: mouth [place] 00 every Medical evening. Branch fexofenadin 2018-07 Yes [id number] 360mg Take 2 Univers e 180 mg 0-08 tablets by ity o f tablet 00:00: mouth [place] 00 daily. Medical Branch cetirizine 2018-07 Yes [id number] 20mg Take 2 U nivers 10 mg 0-08 tablets by ity of tablet 00:00: mouth [place] 00 every Medical evening. Branch fexofenadin 2018-07 Yes [id number] 360mg Take 2 Univers e 180 mg 0-08 tablets by ity o f tablet 00:00: mouth [place] 00 daily. [facility] Branch cetirizine 2018-07 Yes [id number] 20mg Take 2 U nivers 10 mg 0-08 tablets by ity of tablet 00:00: mouth [place] 00 every Medical evening. [place] fexofenadin 2018-07 Yes [id number] 360mg Take 2 Univers e 180 mg 0-08 tablets by ity o f tablet 00:00: mouth [place] 00 daily. [facility] Branch cetirizine 2018-07 Yes [id number] 20mg Take 2 U nivers 10 mg 0-08 tablets by ity of tablet 00:00: mouth [place] 00 every Medical evening. [place] fexofenadin 2018-07 Yes [id number] 360mg Take 2 Univers e 180 mg 0-08 tablets by ity o f tablet 00:00: mouth [place] 00 daily. [facility] cetirizine 2018-07 Yes [id number] 20mg Take 2 U nivers 10 mg 0-08 tablets by ity of tablet 00:00: mouth [place] 00 every Medical evening. [place] fexofenadin 2018-07 Yes [id number] 360mg Take 2 Univers e 180 mg 0-08 tablets by ity o f tablet 00:00: mouth [place] 00 daily. [facility] cetirizine 2018-07 Yes [id number] 20mg Take 2 U nivers 10 mg 0-08 tablets by ity of tablet 00:00: mouth [place] 00 every Medical evening. [place] fexofenadin 2018-07 Yes [id number] 360mg Take 2 Univers e 180 mg 0-08 tablets by ity o f tablet 00:00: mouth [place] 00 daily. [facility] cetirizine 2018-07 Yes [id number] 20mg Take 2 U nivers 10 mg 0-08 tablets by ity of tablet 00:00: mouth [place] 00 every Medical evening. [place] fexofenadin 2018-07 Yes [id number] 360mg Take 2 Univers e 180 mg 0-08 tablets by ity o f tablet 00:00: mouth [place] 00 daily. [facility] cetirizine 2018-07 Yes [id number] 20mg Take 2 U nivers 10 mg 0-08 tablets by ity of tablet 00:00: mouth [place] 00 every Medical evening. [place] fexofenadin 2018-07 Yes [id number] 360mg Take 2 Univers e 180 mg 0-08 tablets by ity o f tablet 00:00: mouth [place] 00 daily. Medical Branch cetirizine 2018-07 Yes [id number] 20mg Take 2 U nivers 10 mg 0-08 tablets by ity of tablet 00:00: mouth [place] 00 every Medical evening. Branch fexofenadin 2018-07 Yes [id number] 360mg Take 2 Univers e 180 mg 0-08 tablets by ity o f tablet 00:00: mouth [place] 00 daily. Medical Branch FLUoxetine 2018-07 Yes [id number] 10mg Take 1 U nivers 10 mg 0-08 capsule by ity of capsule 00:00: mouth [place] 00 daily. Medical Branch cetirizine 2018-07 Yes [id number] 20mg Take 2 U nivers 10 mg 0-08 tablets by ity of tablet 00:00: mouth [place] 00 every Medical evening. Branch fexofenadin 2018-07 Yes [id number] 360mg Take 2 Univers e 180 mg 0-08 tablets by ity o f tablet 00:00: mouth [place] 00 daily. Medical Branch FLUoxetine 2018-07 Yes [id number] 10mg Take 1 U nivers 10 mg 0-08 capsule by ity of capsule 00:00: mouth [place] 00 daily. Medical Branch cetirizine 2018-07 Yes [id number] 20mg Take 2 U nivers 10 mg 0-08 tablets by ity of tablet 00:00: mouth [place] 00 every Medical evening. Branch fexofenadin 2018-07 Yes [id number] 360mg Take 2 Univers e 180 mg 0-08 tablets by ity o f tablet 00:00: mouth [place] 00 daily. Medical Branch FLUoxetine 2018-07 Yes [id number] 10mg Take 1 U nivers 10 mg 0-08 capsule by ity of capsule 00:00: mouth [place] 00 daily. Medical Branch FLUoxetine 2018-07 2022- No [id number] 10mg Take 1 Univers 10 mg 0-08 06-09 capsule by ity of capsule 00:00: 00:00 mouth [place] 00 :00 daily. Medical Branch Yes Take by Unive rs vit 6-17 mouth. ity of calc,iron,f 21:43: [facility] 56 Medical ( Branch VITAMIN ORAL) Yes Take by Unive rs vit 6-17 mouth. ity of calc,iron,f 16:43: [facility] 56 Medical ( Branch VITAMIN ORAL) 2019-0 Yes Take by Unive rs vit 6-17 mouth. ity of calc,iron,f 16:43: [facility] 56 Medical ( Branch VITAMIN ORAL) 2019-0 Yes Take by Unive rs vit 6-17 mouth. ity of calc,iron,f 16:43: [facility] 56 Medical ( Branch VITAMIN ORAL) NUVARING Yes [id number] 1{each} Insert 1 Univers 0.12-0.015 6-17 Each into ity of mg/24 hr 00:00: vagina [place] vaginal 00 once every Medica l insert month. Branch Insert vaginally and leave in place for 3 consecutiv e weeks, then remove for 1 week. NUVARING Yes [id number] 1{each} Insert 1 Univers 0.12-0.015 6-17 Each into ity of mg/24 hr 00:00: vagina [place] vaginal 00 once every Medica l insert month. Branch Insert vaginally and leave in place for 3 consecutiv e weeks, then remove for 1 week. NUVARING Yes [id number] 1{each} Insert 1 Univers 0.12-0.015 6-17 Each into ity of mg/24 hr 00:00: vagina [place] vaginal 00 once every Medica l insert month. Branch Insert vaginally and leave in place for 3 consecutiv e weeks, then remove for 1 week. NUVARING 2021- No [id number] 1{each} Insert 1 Univers 0.12-0.015 6-17 06-09 Each into ity of mg/24 hr 00:00: 00:00 vagina [place] vaginal 00 :00 once every Medica l insert month. Branch Insert vaginally and leave in place for 3 consecutiv e weeks, then remove for 1 week. Immunizations Ordered Filled Immunization Date Status Comments [facility] e Immunization Name Name Rho (d) Immune 2018-11-24 Completed University of Globulin 00:00:00 [facility] Rho (d) Immune 2018-11-24 Completed University of Globulin 00:00:00 [facility] Rho (d) Immune 2018-11-24 Completed University of Globulin 00:00:00 [facility] Rho (d) Immune 2018-11-24 Completed University of Globulin 00:00:00 [facility] Rho (d) Immune 2018-11-24 Completed University of Globulin 00:00:00 [facility] Rho (d) Immune 2018-11-24 Completed University of Globulin 00:00:00 [facility] Rho (d) Immune 2018-11-24 Completed University of Globulin 00:00:00 [facility] Branch Rho (d) Immune 2018-11-24 Completed University of Globulin 00:00:00 [facility] Rho (d) Immune 2018-11-24 Completed University of Globulin 00:00:00 [facility] Rho (d) Immune 2018-11-24 Completed University of Globulin 00:00:00 [facility] Rho (d) Immune 2018-11-24 Completed University of Globulin 00:00:00 [facility] Rho (d) Immune 2018-10-28 Completed University of Globulin 00:00:00 [facility] Rho (d) Immune 2018-10-28 Completed University of Globulin 00:00:00 [facility] Rho (d) Immune 2018-10-28 Completed University of Globulin 00:00:00 [facility] Rho (d) Immune 2018-10-28 Completed University of Globulin 00:00:00 [facility] Rho (d) Immune 2018-10-28 Completed University of Globulin 00:00:00 [facility] Rho (d) Immune 2018-10-28 Completed University of Globulin 00:00:00 [facility] Rho (d) Immune 2018-10-28 Completed University of Globulin 00:00:00 [facility] Rho (d) Immune 2018-10-28 Completed University of Globulin 00:00:00 [facility] Rho (d) Immune 2018-10-28 Completed University of Globulin 00:00:00 [facility] Rho (d) Immune 2018-10-28 Completed University of Globulin 00:00:00 [facility] Rho (d) Immune 2018-10-28 Completed University of Globulin 00:00:00 [facility] Rho (d) Immune 2018-10-28 Completed University of Globulin 00:00:00 [facility] Vital Signs Vital Name Observation Time Observation Value Comments Source Systolic blood 2022-01-16 21:15:00 95 mm[Hg] Univer sity of pressure [facility] Diastolic blood 2022-01-16 21:15:00 62 mm[Hg] Unive rsity of pressure [facility] Heart rate 2022-01-16 21:15:00 96 /min Universi ty of [facility] Body temperature 2022-01-16 21:15:00 36.83 Torri Univ ersity of [facility] Body height 2022-01-16 21:15:00 152.4 cm Universi ty of [facility] Body weight 2022-01-16 21:15:00 53.434 kg Universi ty of [facility] BMI 2022-01-16 21:15:00 23.01 kg/m2 Universi ty of [facility] Systolic blood 2021-12-15 19:10:00 102 mm[Hg] Univer sity of pressure [facility] Branch Diastolic blood 2021-12-15 19:10:00 70 mm[Hg] Unive rsity of pressure [facility] Heart rate 2021-12-15 19:10:00 89 /min Universi ty of [facility] Body temperature 2021-12-15 19:10:00 36.83 Torri [facility] ersity of [facility] Body height 2021-12-15 19:10:00 152.4 cm Universi ty of [facility] Body weight 2021-12-15 19:10:00 52.799 kg Universi ty of [facility] BMI 2021-12-15 19:10:00 22.73 kg/m2 Universi ty of [facility] Branch Systolic blood 2021-07-26 22:36:00 129 mm[Hg] Univer sity of pressure [facility] Diastolic blood 2021-07-26 22:36:00 82 mm[Hg] Unive rsity of pressure [facility] Heart rate 2021-07-26 22:36:00 80 /min Universi ty of [facility] Body temperature 2021-07-26 22:36:00 36.67 Torri [facility] 2021-07-26 22:36:00 18 /min [facility] ersity of [facility] Body weight 2021-07-26 22:36:00 57.607 kg Universi ty [facility] Oxygen saturation in 2021-07-26 22:36:00 99 /min [facility] Arterial blood by [facility] [place] [facility] Pulse oximetry Branch Procedures Procedure Date / Time Performed Performing Clinician [facility] e ASSIGNMENT OF BENEFITS 2022-01-16 20:52:41 Doctor Unassigned, No [facility] Name [facility] POCT URINALYSIS W/O 2022-01-16 00:00:00 Yuni Shah [facility] SPECIFIC [facility] <14 WEEKS US 2021-12-16 04:15:28 [facility] [employer] 2021-12-15 05:01:00 Doctor Unassigned, No Univer sity [facility] ULTRASOUND [facility] POCT TEST 2021-12-15 00:00:00 Shiloh Lopez [facility] POCT URINALYSIS W/O 2021-12-15 00:00:00 Shiloh Lopez [facility] XR HAND 3+ VW RIGHT 2021-07-26 22:48:47 Andrei Shine [facility] NOTICE OF PRIVACY 2021-07-26 22:30:56 Doctor Unassigned, No Univ [facility] CONSENT/REFUSAL FOR 2021-07-26 22:30:44 [facility] Unassigned, No [facility] [place] [facility] AND [facility] TREATMENT SCANNED LAB RESULTS 2018-10-31 05:01:00 Doctor Unassigned, No [facility] [place] [facility] Encounters Start End Encounter Admission Attending Care Care Encounter Source Date/Time Date/Time Type Type Clinicians Facility Department ID 2022-02-07 2022-02-07 Outpatient R SHILOH LOPEZ [facility] [id number] Univers 15:45:00 15:45:[facility] [id number]22-02-07 2022-02-07 Outpatient [facility] CENTER [id number] Univers 15:45[facility]00 15:45:00 [facility]-25 2022-01-25 Telephone Shiloh Lopez [facility] 1.2.840.114 [id number] Univers 00:00:00 00:00:00 Carissa RAI [id number] i ty of [place] [id number] Marcio LEIO [phone] Dc dical [address] 2022-01-17 2022-01-17 [place] Painter 2, Adc Lab [facility] [id number] Univers 09:45:00 10:00:00 Visit Shiloh Lopez 350.1.13.10 ity [id number] [phone] Dc dical NAL 353 [facility] 2022-01-17 2022-01-17 Outpatient R [facility] [id number] Univers 09:45:00 09:45:00 [id number] ity of [facility] 2022-01-17 2022-01-17 Outpatient R SHILOH LOPEZ [facility] [id number] Univers 09:45:00 09:45:00 ity of [facility] 2022-01-16 2022-01-16 [facility] [id number] Univers 16:00:00 16:56:05 YUNI ity [facility] 2022-01-16 2022-01-16 [facility] [id number] Univers 16:00:00 16:56:05 Yuni RAI 350.1.13.10 ity of [id number] [id number] Dc dical NAL 134 [facility] 2022-01-16 2022-01-16 Outpatient [facility] [id number] Univers 16:00:00 16:00:00 YUNI [id number] ity [facility] 2022-01-16 2022-01-16 Orders Doctor GUERRERO 1.2.840.114 [id number] Univers 00:00:00 00:00:00 Only Unassigned, PATY 350.1.13.10 ity of [place] [facility] [id number] Ismael as [phone] [address] 2021-12-23 2021-12-23 Letter Shiloh Lopez [facility] [id number] Univers 00:00:00 00:00:00 (Out) Carissa RAI 350.1.13.10 i ty [id number] [phone] Dc dical NAL 134 [facility] 2021-12-22 2021-12-22 Outpatient R [facility] [id number] Univers 10:15:00 10:15:00 [id number] ity of [facility] 2021-12-22 2021-12-22 Outpatient R [facility] [id number] Univers 10:15:00 10:15:00 ity of [facility] 2021-12-22 2021-12-22 Telephone Shiloh Lopez [facility] 1.2.840.114 [id number] Univers 00:00:00 00:00:00 Cam [place] 350.1.13.10 i ty [id number] [phone] Dc dic[address] 2021-12-15 2021-12-15 Outpatient R JESSICA SHILOH [facility] [id number] Univers 14:00:00 15:46:46 ity of [facility] 2021-12-15 2021-12-15 Initial Jessica [facility] [id number] Univers 14:00:00 15:46:46 Cam LEEANNETON 350.1.13.10 ity of [id number] [phone] Dc dic[address] 2021-12-15 2021-12-15 Outpatient R SHILOH LOPEZ [facility] [id number] Univers 14:00:00 14:00:00 [id number] ity of [facility] 2021-12-15 2021-12-15 Orders Doctor CESAR 1.2.840.114 [id number] Univers 00:00:00 00:00:00 Only Unassigned, PATY 350.1.13.10 ity of [place] [facility] [id number] Ismael as [phone] [address] 2021-12-06 2021-12-06 Telephone Shiloh Lopez [facility] 1.2.840.114 [id number] Univers 00:00:00 00:00:00 Cam [place] 350.1.13.10 i ty [id number] [phone] Dc dical NAL [address] [place] [address] 2021-07-26 2021-07-26 Emergency X Timbo PARNELL [facility] ERT [id number] Univers 16:39:00 17:31:00 ity of [facility] 2021-07-26 2021-07-26 Emergency Timbo Parnell [facility] 1.2.840.114 [id number] Univers 16:39:00 17:31:00 Shoshana RAI 350.1.13.10 i ty [place] [id number] [place] 349584 [place] 2021-07-26 2021-07-26 Orders Doctor CESAR 1.2.840.114 [id number] Univers 00:00:00 00:00:00 Only Unassigned, PATY 350.1.13.10 ity of [place] [facility] [id number] Ismael as [phone] [address] 2018-10-31 2018-10-31 Orders Doctor CESAR 1.2.840.114 [id number] Univers 00:00:00 00:00:00 Only Unassigned, PATY 350.1.13.10 ity of [place] [facility] [id number] Imsael as [phone] [address] Results Test Description Test Time Test Comments Results Result Comments Source POCT URINALYSIS W/O SPECIFIC GRAVITY 2022-01-16 21:14:00 Test Item Value Reference Range Interpretation Comme nts POCT PH U (test code = 3254) n/a 5-8 POCT U LEUK EST (test code = 3263) n/a Negative - Negative POCT U NIT (test code = 3262) n/a Negative - Negative POCT U PROT (test code = 3259) Negative Negative - Negative POCT U GLU (test code = 3256) Normal Negative - Negative POCT U KETONE (test code = 3258) n/a Negative - Negative POCT U BLD (test code = 3257) n/a Negative - Negative [id number] 19:12:00 Test Item Value Reference Range Interpretation Comments POCT PREG (test code = 1605) Positive On board controls acceptable with C Yes Line (test code = 3574) POCT PREG LOT # (test code = 3575) POCT PREG TEST DATE (test code = 3576) [facility]/O SPECIFIC [id number] 19:11:00 Test Item Value Reference Range Interpretation Comments POCT PH U (test code = 3254) 7 mg/dl 5-8 POCT U LEUK EST (test code = Negtive Negative - Negative 3263) POCT U NIT (test code = 3262) Negative Negative - Negative POCT U PROT (test code = 3259) Negative Negative - Negative POCT U GLU (test code = 3256) Normal Negative - Negative POCT U KETONE (test code = +++ large Negative - Negative 3258) POCT U BLD (test code = 3257) Negative Negative - Negative [facility]
--- NOTE | 2022-01-27 07:48 | ER ---
Nurse's Notes [facility] Name: Severiano Quevedo Age: 21 yrs Sex: Female : 2000 Arrival Date: 01/27/2022 Time: : Bed 19 Private MD: Diagnosis: Dental caries, unspecified Presentation: 01/27 07:26 Chief complaint: Patient states: toothache radiating to right ear that began 1-2 days aa5 ago. Reports being 15 weeks . Coronavirus screen: At this time, the client does not indicate any symptoms associated with coronavirus-19. Ebola Screen: No symptoms or risks identified at this time. Initial Sepsis Screen: Does the patient meet any 2 criteria? No. Patient's initial sepsis screen is negative. Does the patient have a suspected source of infection? No. Patient's initial sepsis screen is negative. Risk Assessment: Do you want to hurt yourself or someone else? Patient reports no desire to harm self or others. Onset of symptoms was 2021. 07:26 Method Of Arrival: Ambulatory aa5 07:26 Acuity: SIMON 4 aa5 Historical: - Allergies: 07:27 No Known Allergies; aa5 - PMHx: 07:27 Anxiety; aa5 - PSHx: 07:27 None; aa5 - Immunization history:: Adult Immunizations unknown. - Social history:: Smoking status: Reported history of juuling and/or vaping. - Family history:: not pertinent. - Hospitalizations: : No recent hospitalization is reported. Screenin:30 Abuse screen: Denies threats or abuse. Nutritional screening: No deficits noted. aa5 Tuberculosis screening: No symptoms or risk factors identified. Fall Risk None identified. Assessment: 07:28 General: Appears uncomfortable, Behavior is calm, cooperative. Pain: Complains of pain aa5 in bottom right side of teeth. Neuro: Level of Consciousness is awake, alert, obeys commands, Oriented to person, place, time, situation. Cardiovascular: Patient's skin is warm and dry. Respiratory: Airway is patent Respiratory effort is even, unlabored, Respiratory pattern is regular, symmetrical. GI: No signs and/or symptoms were reported involving the gastrointestinal system. : No signs and/or symptoms were reported regarding the genitourinary system. EENT: Reports toothache . Derm: Skin is pink, warm \T\ dry. Musculoskeletal: Range of motion: intact in all extremities. Vital Signs: 07: BP 113 / 79; Pulse 75; Resp 20 S; Temp 98.3(O); Pulse Ox 100% on R/A; Weight 53.07 kg aa5 (R); Height 5 ft. 2 in. (157.48 cm) (R); Pain 10/10; 07:26 Body Mass Index 21.40 (53.07 kg, 157.48 cm) aa5 ED Course: 07:22 Patient arrived in ED. mr 07:26 Glen Thompson MD is Attending Physician. rn 07:26 Arm band placed on. aa5 07:26 Patient has correct armband on for positive identification. aa5 07:27 Triage completed. aa5 07:28 Margarita Lisa, ARELY is Primary Nurse. aa5 07:49 No provider procedures requiring assistance completed. Patient did not have IV access aa5 during this emergency room visit. Administered Medications: No medications were administered Medication: 07:49 VIS not applicable for this client. aa5 Outcome: 07:47 Discharge ordered by . rn 07:49 Patient left the ED. aa5 07:49 Discharged to home ambulatory. aa5 07:49 Condition: stable 07:49 Discharge instructions given to patient, Patient left without signing discharge instructions and without prescription. Instructed on discharge instructions, follow up and referral plans. Demonstrated understanding of instructions, follow-up care, medications, Prescriptions given X 1. Signatures: Pretty Ferrari Glen Thompson MD MD rn Calderon, Audri, RN RN aa5 Corrections: (The following items were deleted from the chart) 07: 07:27 PMHx: None; aa5 aa5 07:28 07:26 Chief complaint: Patient states: toothache radiating to right ear that began 1-2 aa5 days ago. aa5 07:53 07:51 Patient left the ED. aa5 aa5
--- NOTE | 2022-01-27 07:48 | EDPHYS ---
Physician Documentation [facility] Name: Severiano Quevedo Age: 21 yrs Sex: Female : 2000 Arrival Date: 01/27/2022 Time: : Bed 19 Private MD: ED Physician Glen Thompson HPI: 01/27 07:42 This 21 yrs old Female presents to ER via Ambulatory with complaints of Toothache,15 rn wks . 07:42 The patient presents with pain. Onset: The symptoms/episode began/occurred yesterday. rn Duration: The symptoms are continuous. Modifying factors: The symptoms are alleviated by nothing, the symptoms are aggravated by chewing. Associated signs and symptoms: Pertinent positives: pain, Pertinent negatives: fever, inability to eat, swelling, vomiting. Severity of symptoms: At their worst the symptoms were moderate, in the emergency department the symptoms are unchanged. The patient has experienced similar episodes in the past. The patient has not recently seen a physician. Pt reports known cavity, getting worse, reports last 2 days pain has increased significantly, no fever or swelling. Has not seen a dentist. Is 15 weeks .. Historical: - Allergies: 07:27 No Known Allergies; aa5 - PMHx: 07:27 Anxiety; aa5 - PSHx: 07:27 None; aa5 - Immunization history:: Adult Immunizations unknown. - Social history:: Smoking status: Reported history of juuling and/or vaping. - Family history:: not pertinent. - Hospitalizations: : No recent hospitalization is reported. 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 Exam: 07:42 Constitutional: This is a well developed, well nourished patient who is awake, alert, rn and in no acute distress. ENT: poor dentition, right lower premolar with deep posterior cavity, no swelling, no fluctuance, mild gingival irritation. No buccal abscess or fluctuance. Neck: Trachea midline, no masses palpated, + mild cervical LAD with tenderness. Vital Signs: 07:26 BP 113 / 79; Pulse 75; Resp 20 S; Temp 98.3(O); Pulse Ox 100% on R/A; Weight 53.07 kg aa5 (R); Height 5 ft. 2 in. (157.48 cm) (R); Pain 10/10; 07:26 Body Mass Index 21.40 (53.07 kg, 157.48 cm) aa5 MDM: 07:26 Patient medically screened. rn 07:42 Differential diagnosis: dental caries, dental abscess. Data reviewed: vital signs, rn nurses notes, and as a result, I will discharge patient. Counseling: I had a detailed discussion with the patient and/or guardian regarding: the historical points, exam findings, and any diagnostic results supporting the discharge/admit diagnosis, the need for outpatient follow up, to return to the emergency department if symptoms worsen or persist or if there are any questions or concerns that arise at home. Special discussion: I discussed with the patient/guardian in detail that at this point there is no indication for admission to the hospital. It is understood, however, that if the symptoms persist or worsen the patient needs to return immediately for re-evaluation. Based on the history and exam findings, there is no indication for further emergent testing or inpatient evaluation. I discussed with the patient/guardian the need to see a dentist for further evaluation of the symptoms. ED course: No evidence of abscess, non-toxic, recommend dental f/u urgently as may need root canal. Will place on safe abx and given return precautions.. 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
[2022-01-27 08:00] VITALS: BP 113/79; TEMP 98.3; O2SAT 100
== END 2022-01-27 07:51 | disposition home or self-care (01) ==
LOC: ER 07:20
DX: O99.612 Diseases of the digestive system complicating pregnancy, second trimester (principal); K02.9 Dental caries, unspecified; Z3A.15 15 weeks gestation of pregnancy
CPT/HCPCS: 99282

== ENCOUNTER 2022-07-19 00:34 | Inpatient (IN) | payer OTHER ==
--- OUTSIDE RECORDS SUMMARY | 2022-07-19 00:42 | XMS REPORT | Continuity of Care Document ---
:2000 Author Organization [facility] t Address [address] [place] [address] Care Team Providers Name Role Phone Shiloh Lopez MD Primary Care Physician SHILOH LOPEZ Attending Clinician Unavailable TAO MARTINES Attending Clinician Unavailable TAO MARTINES Attending Clinician Unavailable Shiloh Lopez MD Attending Clinician YUNI VALDOVINOS Attending Clinician Unavailable Yuni Valdovinos PA-C Attending Clinician Doctor Unassigned, [place] Attending Clinician Unavailable Nurse, [facility] Attending Clinician Unavailable 2, [facility] Attending Clinician Unavailable DEISI RODRÍGUEZ Attending Clinician Unavailable Ultrasound, [facility] Attending Clinician Unavailable Art Merlos MD Attending Clinician ART MERLOS Attending Clinician Unavailable Ultrasound, [facility] Attending Clinician Unavailable Padmini Colindres MD Attending Clinician [phone] PADMINI COLINDRES Attending Clinician Unavailable Nina Junior MD Attending Clinician Timbo PARNELL Attending Clinician Unavailable Timbo Black Attending Clinician SHILOH LOPEZ Admitting Clinician Unavailable TAO MARTINES Admitting Clinician Unavailable ROSARIO SHINE Admitting Clinician Unavailable Payers Payer Name Policy Type Policy Number Effective Date Expiration Date Formerly [facility] [id number] 2021 CHOICE [place] STAR 00:00:00 Problems Condition Condition Condition Status Onset Resolution Last Treating Co mments Source Name Details Category Date Date Treatment Clinician Date Normal Normal Disease Active 2021-07 Univers labor labor 2-31 ity of 00:00: [place] 00 Medical Branch Disease Active 2021-07 Univers (spontaneo (spontaneo 2-31 [place] delivery[place] 00 [facility] Branch Sciatic Sciatic Disease Active 2021-07 Univers pain, pain, 2-14 ity of unspecifie unspecifie 00:00[place] d d 00 Medical laterality laterality Br anch Pain of Pain of Disease Active 2021-07 Univers round round 2-14 ity of ligament ligament 00:00: [place] during during 00 Medical Bran ch High risk High risk Disease Active Uni vers , , 6-09 it y of antepartum antepartum 00:00: [place] 00 [place] Nausea and Nausea and Disease Active U nivers vomiting vomiting 6-09 ity of during during 00:00: [place] 00 [facility] prior to prior to Branch 22 weeks 22 weeks gestation gestation Anxiety Anxiety Disease Active Univers disorder, disorder, 6-09 ity of unspecifie unspecifie 00:[place] d type d type 00 Medical Branch Depression Depression Disease Active U nivers during during 6-09 ity of , , 00:00[place] antepartum antepartum 00 Mn dical Branch Anemia of Anemia of Disease Active Uni vers 5-19 ity of 00:00: [place] 00 Medical Branch Disease Active U nivers care and care and 5-18 ity of examinatio examinatio 00:00: [place] n n 00 Medical immediatel immediatel Br anch y after y after delivery delivery Rh Rh Disease Active Overview: Univer s negative, negative, 5-18 Formattin i ty of delivered, delivered, 00:00: g of this [place] current current 00 note Medical hospitaliz hospitaliz might be Branch ation ation different from the original. 11/23/18 - Rhogam given 38 weeks 38 weeks Disease Active Unive rs gestation gestation 5-18 ity of of of 00:00: [place] 00 [facility] Single Single Disease Active Univers live live 5-18 it y of 00:00: [place] 00 Medical Branch Disease Active Univers (normal (normal 5-18 ity of spontaneou spontaneou 00:[place] vaginal s vaginal [facility] delivery) delivery) Bran ch Primary Primary Disease Active Univers hypothyroi hypothyroi 6-07 it y of dism dism 00:00: [place] Medical Branch Primary Primary Disease Active Univers hypothyroi hypothyroi 6-07 it y of dism dism 00:00: [address] Allergies, Adverse Reactions, Alerts Allergy Allergy Status Severity Reaction(s) Onset Inactive Treating Comm ents Source Name Type Date Date Clinician NO KNOWN Drug Active Univers ALLERGIE Class ity of [facility] Social History Social Habit Start Date Stop Date Quantity Comments Source ASSERTION 2021-10-25 [facility] 00:00:00 [facility] Exposure to 2022-06-28 2022-07-08 Not sure [facility] SARS-CoV-2 00:00:00 19:04:00 [facility] (event) Branch Tobacco use and 2022-07-08 2022-07-08 Former smokeless Uni versity of exposure 00:00:00 00:00:00 tobacco user [place] [facility] [place] Alcohol intake 2022-07-08 2022-07-08 Current University 00:00:00 00:00:00 non-drinker of [facility] alcohol (finding) Branch Tobacco Comment 2022-07-08 2022-07-08 Vapes Universit y of 00:00:00 00:00:00 [facility] Sex Assigned At [birth year] Universit y of 00:00:00 00:00:00 [facility] Smoking Status Start Date Stop Date Source Never smoked tobacco [facility] [place] [facility] Medications Ordered Filled Start Stop Current Ordering Indication Dosage Frequency Signature Comments Components Source Medication Medication Date Date Medication? Clinician (SIG) Name Name STEPHEN Yes Take by Univers no.95/angelique 07-10 mouth. ity of us 14:13: [place] fum/folic 52 Medical ac Branch ( ORAL) diphenhydrA 2022- No 25mg Take 25 mg Univers MINE 07-10 by mouth ity of (BENADRYL) 06:45: 00:00 every 6 [place] 25 mg 40 :00 (six) Medical capsule hours as Branch needed for Allergies. busPIRone Yes 7.5mg 7.5 mg, Univ ers (BUSPAR) 07-10 Oral, BID, ity o f tablet 7.5 02:00: [place] dose [place] mg 00 on [facility] 07/09/22 at Branch 2000, Until Discontinu ed, Routine ibuprofen Yes [id number] 600mg Take 1 Univers 600 mg 07-10 tablet by ity of tablet 00:00: mouth [place] 00 every 6 Medical (six) Branch hours as needed for Pain (scale 4-6). busPIRone Yes [id number] 15mg Take 2 U nivers 7.5 mg 07-10 tablets by ity of tablet 00:00: mouth in [place] 00 the Medical morning Branch and 2 tablets in the evening. rho(D) Yes 300ug 300 mcg, Univer s immune 07-09 Intramuscu ity of globulin 23:23: lar, ONCE, [place] as (RHOGAM) 17 For 1 Medical syringe 300 dose, Branch mcg Conditiona l, Routine rho(D) Yes 300ug 300 mcg, Univer s immune 07-09 Intramuscu ity of globulin 22:54: lar, ONCE, [place] (RHOGAM) 44 For 1 Medical syringe 300 dose, Branch mcg Conditiona l, Routine HYDROcodone Yes 1{tbl} 1 tablet, Univers -acetaminop 07-09 Oral, ity of hen (NORCO 04:28: Q6HPRN, [place] 5) 5-325 mg 05 Starting Medi roney tablet 1 on Sat Branch tablet 07/08/22 at 2228, Until Discontinu ed, Routine, Pain (scale 7-10) ibuprofen 2023-0 Yes 600mg 600 mg, Univ ers (IBU) 07-09 Oral, ity of tablet 600 04:28: Q6HPRN, [place] mg 05 Starting Medical on [facility] Branch 07/08/22 at 2228, Until Discontinu ed, Routine, Pain (scale 4-6) acetaminoph 3-0 Yes 650mg 650 mg, Un flakita en 07-09 Oral, ity of (TYLENOL) 04:28: Q6HPRN, [place] tablet 650 05 Starting Medic al mg on [facility] Branch 07/08/22 at 2228, Until Discontinu ed, Routine, Pain (scale 1-3) diphenhydrA 2022-0 Yes 25mg 25 mg, Univ ers MINE 07-09 Oral, ity of (BENADRYL) 04:28: Q6HPRN, [place] tablet 25 05 Starting Medica l mg on [facility] Branch 07/08/22 at 2228, Until Discontinu ed, Routine, Sleep, Itching ondansetron 2022-0 Yes 4mg 4 mg, Slow Univers (ZOFRAN 07-09 IV Push, ity of (PF)) 04:28: Q8HPRN, [place] injection 4 05 Starting Medi roney mg on [facility] Branch 07/08/22 at 2228, Until Discontinu ed, Routine, Nausea and Vomiting (N/V) simethicone 2022-0 Yes 160mg 160 mg, Un flakita (GAS RELIEF 07-09 Oral, ity of (SIMETHICON 04:28: PC+HSPRN, [place] E)) 05 Starting Medical chewable on [facility] tablet 160 07/08/22 mg at 2228, Until Discontinu ed, Routine, Gas docusate 2022-0 Yes 200mg 200 mg, Unive rs (COLACE) 07-09 Oral, ity of capsule 200 04:28: QDAILYPRN, [place] mg 05 Starting Medical on [facility] Branch 07/08/22 at 2228, Until Discontinu ed, Routine, Constipati on magnesium 2022-0 Yes 30mL 30 mL, Univer s hydroxide 07-09 Oral, ity of (MILK OF 04:28: QDAILYPRN, [place] MAGNESIA) 05 Starting Medica l 400 mg/5 mL on [facility] Branch suspension 07/08/22 30 mL at 2228, Until Discontinu ed, Routine, Constipati on benzocaine- Yes Topical, Un flakita menthol 07-09 PRN, ity of (DERMOPLAST 04:28: [place] ) 20-0.5 % 05 on Sat Medical topical 07/08/22 Branch spray at 2228, Until Discontinu ed, Routine, Perineum discomfort lactated 2022- No 500mL at 999 Unive rs ringers IV 07-09 mL/hr, 500 it y of infusion 01:08: 04:29 mL, IV [place] 500 mL 41 :28 Infusion, Medical PRN - SEE Branch INSTRUCTIO NS, Starting on 07/08/22 at 1908, Until 07/08/22 at 2229, Routine D5W-LR IV 2022- No 1000mL at 1-125 U nivers infusion 07-09 mL/hr, IV ity o f 1,000 mL 01:08: 04:29 Infusion, [place] 40 :28 TITRATE, Medical Starting Branch on 07/08/22 at 1908, Until 07/08/22 at 2229, Routine medroxyPROG 2021-07- No [id number] 150mg Univers ESTERone 14 14 ity of (DEPO-PROVE 17:30: 17:05 [facility]) syringe 00 :32 Medical 150 mg Branch ferrous 2021-07 Yes [id number] 325mg Take 1 Un flakita sulfate 1-10 tablet by ity of (IRON, 00:00: mouth in [place] FERROUS 00 the Medical SULFATE,) morning Branch 325 mg (65 and 1 mg iron) tablet in tablet the evening. ferrous 2021-07 Yes [id number] 325mg Take 1 Un flakita sulfate 1-10 tablet by ity of (IRON, 00:00: mouth in [place] FERROUS 00 the Medical SULFATE,) morning Branch 325 mg (65 and 1 mg iron) tablet in tablet the evening. ferrous 2021-07 Yes [id number] 325mg Take 1 Un flakita sulfate 1-10 tablet by ity of (IRON, 00:00: mouth in [place] FERROUS 00 the Medical SULFATE,) morning Branch 325 mg (65 and 1 mg iron) tablet in tablet the evening. ferrous 2021-07 Yes [id number] 325mg Take 1 Un flakita sulfate 1-10 tablet by ity of (IRON, 00:00: mouth in [place] FERROUS 00 the Medical SULFATE,) morning Branch 325 mg (65 and 1 mg iron) tablet in tablet the evening. ferrous 2021-07 Yes 325mg Take 1 Un flakita sulfate 1-10 tablet by ity of (IRON, 00:00: mouth in [place] FERROUS 00 the Medical SULFATE,) morning Branch 325 mg (65 and 1 mg iron) tablet in tablet the evening. ferrous 2021-07 Yes 325mg Take 1 Un flakita sulfate 1-10 tablet by ity of (IRON, 00:00: mouth in [place] FERROUS 00 the Medical SULFATE,) morning Branch 325 mg (65 and 1 mg iron) tablet in tablet the evening. ferrous 2021-07 2023- No [id number] 325mg Take 1 U nivers sulfate 1-10 07-10 tablet by ity of (IRON, 00:00: 00:00 mouth in [place] FERROUS 00 :00 the Medical SULFATE,) morning Branch 325 mg (65 and 1 mg iron) tablet in tablet the evening. busPIRone Yes 7.5mg Take 1 Univers 7.5 mg 9-26 tablet by ity of tablet 00:00: mouth in [place] 00 the Medical morning Branch and 1 tablet in the evening. busPIRone Yes 7.5mg Take 1 Univers 7.5 mg 9-26 tablet by ity of tablet 00:00: mouth in [place] 00 the Medical morning Branch and 1 tablet in the evening. busPIRone 0 Yes 7.5mg Take 1 Univers 7.5 mg 9-26 tablet by ity of tablet 00:00: mouth in [place] 00 the Medical morning Branch and 1 tablet in the evening. busPIRone 0 Yes 7.5mg Take 1 Univers 7.5 mg 9-26 tablet by ity of tablet 00:00: mouth in [place] 00 the Medical morning Branch and 1 tablet in the evening. busPIRone 0 Yes 7.5mg Take 1 Univers 7.5 mg 9-26 tablet by ity of tablet 00:00: mouth in [place] 00 the Medical morning Branch and 1 tablet in the evening. busPIRone 2021-0 Yes 7.5mg Take 1 Univers 7.5 mg 9-26 tablet by ity of tablet 00:00: mouth in [place] 00 the Medical morning Branch and 1 tablet in the evening. busPIRone 2021-0 Yes [id number] 7.5mg Take 1 Univers 7.5 mg 9-26 tablet by ity of tablet 00:00: mouth in [place] 00 the Medical morning Branch and 1 tablet in the evening. busPIRone 2021-0 Yes [id number] 7.5mg Take 1 Univers 7.5 mg 9-26 tablet by ity of tablet 00:00: mouth in [place] 00 the Medical morning Branch and 1 tablet in the evening. busPIRone 2021-0 Yes [id number] 7.5mg Take 1 Univers 7.5 mg 9-26 tablet by ity of tablet 00:00: mouth in [place] 00 the Medical morning Branch and 1 tablet in the evening. busPIRone 2021-0 Yes [id number] 7.5mg Take 1 Univers 7.5 mg 9-26 tablet by ity of tablet 00:00: mouth in [place] 00 the Medical morning Branch and 1 tablet in the evening. busPIRone 2021-0 Yes [id number] 7.5mg Take 1 Univers 7.5 mg 9-26 tablet by ity of tablet 00:00: mouth in [place] 00 the Medical morning Branch and 1 tablet in the evening. busPIRone 2021-0 Yes [id number] 7.5mg Take 1 Univers 7.5 mg 9-26 tablet by ity of tablet 00:00: mouth in [place] 00 the Medical morning Branch and 1 tablet in the evening. busPIRone 2021-0 3- No [id number] 7.5mg Take 1 Univers 7.5 mg 9-26 07-10 tablet by ity of tablet 00:00: 00:00 mouth in [place] 00 :00 the Medical morning Branch and 1 tablet in the evening. busPIRone 5 2021-0 Yes [id number] 5mg Take 1 Univers mg tablet 8-17 tablet by ity o f 00:00: mouth in [place] 00 the Medical morning Branch and 1 tablet in the evening. busPIRone 5 2021-0 Yes [id number] 5mg Take 1 Univers mg tablet 8-17 tablet by ity o f 00:00: mouth in [place] 00 the Medical morning Branch and 1 tablet in the evening. busPIRone 5 2021-0 Yes [id number] 5mg Take 1 Univers mg tablet 8-17 tablet by ity o f 00:00: mouth in [place] 00 the Medical morning Branch and 1 tablet in the evening. busPIRone 5 2021-0 Yes [id number] 5mg Take 1 Univers mg tablet 8-17 tablet by ity o f 00:00: mouth in [place] 00 the Medical morning Branch and 1 tablet in the evening. busPIRone 5 2021-2021- No [id number] 5mg Take 1 Univers mg tablet 8-17 -26 tablet by ity of 00:00: 00:00 mouth in [place] 00 :00 the Medical morning Branch and 1 tablet in the evening. acetaminoph 2021- No [id number] 1{tbl} Take 1 U nivers en-codeine 7-22 07-30 tablet by ity of (TYLENOL-CO 00:00: 04:59 [place] DEINE #3) 00 :00 every 4 Medical 300-30 mg (four) Branch tablet hours as needed for Pain (scale 7-10) for up to 7 days. Indication s: acute pain acetaminoph 2021- No [id number] 1{tbl} Take 1 U nivers en-codeine 7-22 07-30 tablet by ity of (TYLENOL-CO 00:00: 04:59 [place] DEINE #3) 00 :00 every 4 Medical 300-30 mg (four) Branch tablet hours as needed for Pain (scale 7-10) for up to 7 days. Indication s: acute pain PNV 2021-0 Yes Take by Univers no.95/angelique 7-11 mouth. ity of us 16:16: [place] fum/folic 56 Medical ac Branch ( ORAL) PNV 2021-0 Yes Take by Univers no.95/angelique 7-11 mouth. ity of us 16:16: [place] fum/folic 56 Medical ac Branch ( ORAL) PNV 2021-0 Yes Take by Univers no.95/angelique 7-11 mouth. ity of us 16:16: [place] fum/folic 56 Medical ac Branch ( ORAL) PNV 2021-0 Yes Take by Univers no.95/angelique 7-11 mouth. ity of us 16:16: [place] fum/folic 56 Medical ac Branch ( ORAL) PNV 2022-0 Yes Take by Univers no.95/angelique 7-11 mouth. ity of us 16:16: [place] fum/folic 56 Medical ac Branch ( ORAL) PNV 2021-0 Yes Take by Univers no.95/angelique 7-11 mouth. ity of us 16:16: [place] fum/folic 56 Medical ac Branch ( ORAL) PNV 2021-0 Yes Take by Univers no.95/angelique 7-11 mouth. ity of us 16:16: [place] fum/folic 56 Medical ac Branch ( ORAL) PNV 2021-0 Yes Take by Univers no.95/angelique 7-11 mouth. ity of us 16:16: [place] fum/folic 56 Medical ac Branch ( ORAL) PNV 2021-0 Yes Take by Univers no.95/angelique 7-11 mouth. ity of us 16:16: [place] fum/folic 56 Medical ac Branch ( ORAL) PNV 2021-0 Yes Take by Univers no.95/angelique 7-11 mouth. ity of us 16:16: [place] fum/folic 56 Medical ac Branch ( ORAL) PNV 2021-0 Yes Take by Univers no.95/angelique 7-11 mouth. ity of us 16:16: [place] fum/folic 56 Medical ac Branch ( ORAL) PNV 2021-0 Yes Take by Univers no.95/angelique 7-11 mouth. ity of us 16:16: [place] fum/folic 56 Medical ac Branch ( ORAL) PNV 2-0 Yes Take by Univers no.95/angelique 7-11 mouth. ity of us 16:16: [place] fum/folic 56 Medical ac Branch ( ORAL) PNV 2021-0 Yes Take by Univers no.95/angelique 7-11 mouth. ity of us 16:16: [place] fum/folic 56 Medical ac Branch ( ORAL) PNV 2022-0 Yes Take by Univers no.95/angelique 7-11 mouth. ity of us 16:16: [place] fum/folic 56 Medical ac Branch ( ORAL) PNV 2022-0 Yes Take by Univers no.95/angelique 7-11 mouth. ity of us 16:16: [place] fum/folic 56 Medical ac Branch ( ORAL) PNV 2022-0 Yes Take by Univers no.95/angelique 7-11 mouth. ity of us 16:16: [place] fum/folic 56 Medical ac Branch ( ORAL) PNV 2021-0 Yes Take by Univers no.95/angelique 7-11 mouth. ity of us 16:16: [place] fum/folic 56 Medical ac Branch ( ORAL) PNV 2021-0 Yes Take by Univers no.95/angelique 7-11 mouth. ity of us 16:16: [place] fum/folic 56 Medical ac Branch ( ORAL) PNV 2021-0 Yes Take by Univers no.95/angelique 7-11 mouth. ity of us 16:16: [place] fum/folic 56 Medical ac Branch ( ORAL) PNV 2021-0 Yes Take by Univers no.95/angelique 7-11 mouth. ity of 16:16: [place] fum/folic 56 Medical ac Branch ( ORAL) PNV 2021-0 Yes Take by Univers no.95/angelique 7-11 mouth. ity of 16:16: [place] fum/folic 56 Medical ac Branch ( ORAL) PNV 0 Yes Take by Univers no.95/angelique 7-11 mouth. ity of 16:16: [place] fum/folic 56 Medical ac Branch ( ORAL) oxyCODONE 5 202- No [id number] 5mg Take 1 Uni vers mg 6-17 06-25 tablet by ity of immediate 00:00: 04:59 mouth [place] release 00 :00 every 6 Medical tablet (six) Branch hours as needed for Pain (scale 7-10) for up to 7 days. Indication s: acute pain 2021- No Take by Unive rs vit 6- 06-09 mouth. ity of calc,iron,f 23:06: 00:00 [...] hours as Branch needed for Allergies. diphenhydrA 2022-0 Yes 25mg Take 25 mg Univers MINE 6-09 by mouth ity of (BENADRYL) 14:20: every 6 [place] 25 mg 47 (six) Medical capsule hours as Branch needed for Allergies. diphenhydrA 2022-0 Yes 25mg Take 25 mg Univers MINE 6-09 by mouth ity of (BENADRYL) 14:20: every 6 [place] 25 mg 47 (six) Medical capsule hours as Branch needed for Allergies. diphenhydrA 2022-0 Yes 25mg Take 25 mg Univers MINE 6-09 by mouth ity of (BENADRYL) 14:20: every 6 [place] 25 mg 47 (six) Medical capsule hours as Branch needed for Allergies. diphenhydrA 2022-0 Yes 25mg Take 25 mg Univers MINE 6-09 by mouth ity of (BENADRYL) 14:20: every 6 [place] 25 mg 47 (six) Medical capsule hours as Branch needed for Allergies. diphenhydrA 2022-0 Yes 25mg Take 25 mg Univers MINE 6-09 by mouth ity of (BENADRYL) 14:20: every 6 [place] 25 mg 47 (six) Medical capsule hours as Branch needed for Allergies. diphenhydrA 2022-0 Yes 25mg Take 25 mg Univers MINE 6-09 by mouth ity of (BENADRYL) 14:20: every 6 [place] 25 mg 47 (six) Medical capsule hours as Branch needed for Allergies. diphenhydrA 2022-0 Yes 25mg Take 25 mg Univers MINE 6-09 by mouth ity of (BENADRYL) 14:20: every 6 [place] 25 mg 47 (six) Medical capsule hours as Branch needed for Allergies. diphenhydrA 2022-0 Yes 25mg Take 25 mg Univers MINE 6-09 by mouth ity of (BENADRYL) 14:20: every 6 [place] 25 mg 47 (six) Medical capsule hours as Branch needed for Allergies. diphenhydrA 2022-0 Yes 25mg Take 25 mg Univers MINE 6-09 by mouth ity of (BENADRYL) 14:20: every 6 [place] 25 mg 47 (six) Medical capsule hours as Branch needed for Allergies. diphenhydrA 2022-0 Yes 25mg Take 25 mg Univers MINE 6-09 by mouth ity of (BENADRYL) 14:20: every 6 [place] 25 mg 47 (six) Medical capsule hours as Branch needed for Allergies. diphenhydrA 2022-0 Yes 25mg Take 25 mg Univers MINE 6-09 by mouth ity of (BENADRYL) 14:20: every 6 [place] 25 mg 47 (six) Medical capsule hours as Branch needed for Allergies. diphenhydrA 2022-0 Yes 25mg Take 25 mg Univers MINE 6-09 by mouth ity of (BENADRYL) 14:20: every 6 [place] 25 mg 47 (six) Medical capsule hours as Branch needed for Allergies. diphenhydrA 2022-0 Yes 25mg Take 25 mg Univers MINE 6-09 by mouth ity of (BENADRYL) 14:20: every 6 [place] 25 mg 47 (six) Medical capsule hours as Branch needed for Allergies. diphenhydrA 2022-0 Yes 25mg Take 25 mg Univers MINE 6-09 by mouth ity of (BENADRYL) 14:20: every 6 [place] 25 mg 47 (six) Medical capsule hours as Branch needed for Allergies. diphenhydrA 2022-0 Yes 25mg Take 25 mg Univers MINE 6-09 by mouth ity of (BENADRYL) 14:20: every 6 [place] 25 mg 47 (six) Medical capsule hours as Branch needed for Allergies. diphenhydrA 2022-0 Yes 25mg Take 25 mg Univers MINE 6-09 by mouth ity of (BENADRYL) 14:20: every 6 [place] 25 mg 47 (six) Medical capsule hours as Branch needed for Allergies. diphenhydrA 2022-0 Yes 25mg Take 25 mg Univers MINE 6-09 by mouth ity of (BENADRYL) 14:20: every 6 [place] 25 mg 47 (six) Medical capsule hours as Branch needed for Allergies. diphenhydrA 2022-0 Yes 25mg Take 25 mg Univers MINE 6-09 by mouth ity of (BENADRYL) 14:20: every 6 [place] 25 mg 47 (six) Medical capsule hours as Branch needed for Allergies. diphenhydrA 2022-0 Yes 25mg Take 25 mg Univers MINE 6-09 by mouth ity of (BENADRYL) 14:20: every 6 [place] 25 mg 47 (six) Medical capsule hours as Branch needed for Allergies. diphenhydrA 2022-0 Yes 25mg Take 25 mg Univers MINE 6-09 by mouth ity of (BENADRYL) 14:20: every 6 [place] 25 mg 47 (six) Medical capsule hours as Branch needed for Allergies. diphenhydrA 2022-0 Yes 25mg Take 25 mg Univers MINE 6-09 by mouth ity of (BENADRYL) 14:20: every 6 [place] 25 mg 47 (six) Medical capsule hours as Branch needed for Allergies. diphenhydrA 2022-0 Yes 25mg Take 25 mg Univers MINE 6-09 by mouth ity of (BENADRYL) 14:20: every 6 [place] 25 mg 47 (six) Medical capsule hours as Branch needed for Allergies. diphenhydrA 2-0 Yes 25mg Take 25 mg Univers MINE 6-09 by mouth ity of (BENADRYL) 14:20: every 6 [place] 25 mg 47 (six) Medical capsule hours as Branch needed for Allergies. diphenhydrA 2-0 Yes 25mg Take 25 mg Univers MINE 6-09 by mouth ity of (BENADRYL) 14:20: every 6 [place] 25 mg 47 (six) Medical capsule hours as Branch needed for Allergies. diphenhydrA 2-0 Yes 25mg Take 25 mg Univers MINE [...] Branch needed for Allergies. pyridoxine, 2021-0 Yes [id number] 25mg Take 1 Univers VITAMIN 6-09 tablet by ity of B-6, 00:00: mouth [place] (VITAMIN 00 every 6 Medical B-6) 25 mg (six) Branch tablet hours as needed for Nausea and Vomiting (N/V). doxylamine 2021-0 Yes [id number] 25mg Take 1 U nivers (UNISOM, 6-09 tablet by ity of DOXYLAMINE, 00:00: [place] 25 mg 00 bedtime as Medica l tablet needed for Branch Nausea and Vomiting (N/V). metoclopram 2021-0 Yes [id number] 10mg Take 1 Univers kaden HCl 10 6-09 tablet by ity of mg tablet 00:00: mouth [place] 00 every 6 Medical (six) Branch hours as needed for Nausea and Vomiting (N/V). busPIRone 5 2021-0 Yes [id number] 5mg Take 1 Univers mg tablet 6-09 tablet by ity o f 00:00: mouth 2 [place] 00 (two) Medical times Branch daily. pyridoxine, 2021-0 Yes [id number] 25mg Take 1 Univers VITAMIN 6-09 tablet by ity of B-6, 00:00: mouth [place] (VITAMIN 00 every 6 Medical B-6) 25 mg (six) Branch tablet hours as needed for Nausea and Vomiting (N/V). doxylamine 2021-0 Yes [id number] 25mg Take 1 U nivers (UNISOM, 6-09 tablet by ity of DOXYLAMINE, 00:00: [place] 25 mg 00 bedtime as Medica l tablet needed for Branch Nausea and Vomiting (N/V). metoclopram 2021-0 Yes [id number] 10mg Take 1 Univers kaden HCl 10 6-09 tablet by ity of mg tablet 00:00: mouth [place] 00 every 6 Medical (six) Branch hours as needed for Nausea and Vomiting (N/V). busPIRone 5 2021-0 Yes [id number] 5mg Take 1 Univers mg tablet 6-09 tablet by ity o f 00:00: mouth 2 [place] 00 (two) Medical times Branch daily. pyridoxine, 2021-0 Yes [id number] 25mg Take 1 Univers VITAMIN 6-09 tablet by ity of B-6, 00:00: mouth [place] (VITAMIN 00 every 6 Medical B-6) 25 mg (six) Branch tablet hours as needed for Nausea and Vomiting (N/V). doxylamine 2021-0 Yes [id number] 25mg Take 1 U nivers (UNISOM, 6-09 tablet by ity of DOXYLAMINE, 00:00: [place] 25 mg 00 bedtime as Medica l tablet needed for Branch Nausea and Vomiting (N/V). metoclopram 2021-0 Yes [id number] 10mg Take 1 Univers kaden HCl 10 6-09 tablet by ity of mg tablet 00:00: mouth [place] 00 every 6 Medical (six) Branch hours as needed for Nausea and Vomiting (N/V). busPIRone 5 2021-0 Yes [id number] 5mg Take 1 [facility] mg tablet 6-09 tablet by [facility] o f 00:00: mouth 2 [place] 00 (two) Medical times Branch daily. pyridoxine, 2021-0 Yes [id number] 25mg Take 1 [facility] VITAMIN 6-09 tablet by ity of B-6, 00:00: mouth [place] (VITAMIN 00 every 6 Medical B-6) 25 mg (six) Branch tablet hours as needed for Nausea and Vomiting (N/V). doxylamine 2021-0 Yes [id number] 25mg Take 1 [facility] (UNISOM, 6-09 tablet by [facility] of DOXYLAMINE, 00:00: mouth [place] 25 mg 00 bedtime as Medica l tablet needed for Branch Nausea and Vomiting (N/V). metoclopram 2021-0 Yes [id number] 10mg Take 1 [facility] kaden HCl 10 6-09 tablet by it[facility] of mg tablet 00:00: mouth [place] 00 every 6 Medical (six) Branch hours as needed for Nausea and Vomiting (N/V). busPIRone 5 2021-0 Yes [id number] 5mg Take 1 [facility] mg tablet 6-09 tablet by [facility] o f 00:00: mouth 2 [place] 00 (two) Medical times Branch daily. pyridoxine, 2021-0 Yes [id number] 25mg Take 1 [facility] VITAMIN 6-09 tablet by ity of B-6, 00:00: mouth [place] (VITAMIN 00 every 6 Medical B-6) 25 mg (six) Branch tablet hours as needed for Nausea and Vomiting (N/V). doxylamine 2021-0 Yes [id number] 25mg Take 1 [facility] (UNISOM, 6-09 tablet by [facility] of DOXYLAMINE, 00:00: mouth [place] ) 25 mg 00 bedtime as Medica l tablet needed for Branch Nausea and Vomiting (N/V). metoclopram 2021-0 Yes [id number] 10mg Take 1 [facility] kaden HCl 10 6-09 tablet by [facility] of mg tablet 00:00: mouth [place] 00 every 6 Medical (six) Branch hours as needed for Nausea and Vomiting (N/V). busPIRone 5 2021-0 Yes [id number] 5mg Take 1 [facility] mg tablet 6-09 tablet by [facility] o f 00:00: mouth 2 [place] 00 (two) Medical times Branch daily. pyridoxine, 2021-0 Yes [id number] 25mg Take 1 [facility] VITAMIN 6-09 tablet by ity of B-6, 00:00: mouth [place] (VITAMIN 00 every 6 Medical B-6) 25 mg (six) Branch tablet hours as needed for Nausea and Vomiting (N/V). doxylamine 2021-0 Yes [id number] 25mg Take 1 [facility] (UNISOM, 6-09 tablet by [facility] of DOXYLAMINE, 00:00: mouth [place] ) 25 mg 00 bedtime as Medica l tablet needed for Branch Nausea and Vomiting (N/V). metoclopram 2021-0 Yes [id number] 10mg Take 1 [facility] kaden HCl 10 6-09 tablet by [facility] of mg tablet 00:00: mouth [place] 00 every 6 Medical (six) Branch hours as needed for Nausea and Vomiting (N/V). busPIRone 5 2021-0 Yes [id number] 5mg Take 1 [facility] mg tablet 6-09 tablet by [facility] o f 00:00: mouth 2 [place] 00 (two) Medical times Branch daily. pyridoxine, 2021-0 Yes [id number] 25mg Take 1 [facility] VITAMIN 6-09 tablet by [facility] of B-6, 00:00: mouth [place] (VITAMIN 00 every 6 Medical B-6) 25 mg (six) Branch tablet hours as needed for Nausea and Vomiting (N/V). doxylamine 2021-0 Yes [id number] 25mg Take 1 [facility] (UNISOM, 6-09 tablet by [facility] of DOXYLAMINE, 00:00: mouth [place] ) 25 mg 00 bedtime as Medica l tablet needed for Branch Nausea and Vomiting (N/V). metoclopram 2021-0 Yes [id number] 10mg Take 1 [facility] kaden HCl 10 6-09 tablet by [facility] of mg tablet 00:00: mouth [place] 00 every 6 Medical (six) Branch hours as needed for Nausea and Vomiting (N/V). busPIRone 5 0 Yes [id number] 5mg Take 1 [facility] mg tablet 6-09 tablet by [facility] o f 00:00: mouth 2 [place] 00 (two) Medical times Branch daily. pyridoxine, 0 Yes [id number] 25mg Take 1 [facility] VITAMIN 6-09 tablet by [facility] of B-6, 00:00: mouth [place] (VITAMIN 00 every 6 Medical B-6) 25 mg (six) Branch tablet hours as needed for Nausea and Vomiting (N/V). doxylamine 2021-0 Yes [id number] 25mg Take 1 [facility] (UNISOM, 6-09 tablet by [facility] of DOXYLAMINE, 00:00: mouth [place] ) 25 mg 00 bedtime as Medica l tablet needed for Branch Nausea and Vomiting (N/V). metoclopram 2021-0 Yes [id number] 10mg Take 1 [facility] kaden HCl 10 6-09 tablet by [facility] of mg tablet 00:00: mouth [place] 00 every 6 Medical (six) Branch hours as needed for Nausea and Vomiting (N/V). busPIRone 5 0 Yes [id number] 5mg Take 1 [facility] mg tablet 6-09 tablet by it[facility] o f 00:00: mouth 2 [place] 00 (two) Medical times Branch daily. pyridoxine, 0 Yes [id number] 25mg Take 1 [facility] VITAMIN 6-09 tablet by [facility] of B-6, 00:00: mouth [place] (VITAMIN 00 every 6 Medical B-6) 25 mg (six) Branch tablet hours as needed for Nausea and Vomiting (N/V). doxylamine 2021-0 Yes [id number] 25mg Take 1 [facility] (UNISOM, 6-09 tablet by [facility] of DOXYLAMINE, 00:00: mouth [place] ) 25 mg 00 bedtime as Medica l tablet needed for Branch Nausea and Vomiting (N/V). metoclopram 2021-0 Yes [id number] 10mg Take 1 [facility] kaden HCl 10 6-09 tablet by [facility] of mg tablet 00:00: mouth [place] 00 every 6 Medical (six) Branch hours as needed for Nausea and Vomiting (N/V). busPIRone 5 2021-0 Yes [id number] 5mg Take 1 [facility] mg tablet 6-09 tablet by it[facility] o f 00:00: mouth 2 [place] 00 (two) Medical times Branch daily. pyridoxine, 2021-0 Yes [id number] 25mg Take 1 [facility] VITAMIN 6-09 tablet by [facility] of B-6, 00:00: mouth [place] (VITAMIN 00 every 6 Medical B-6) 25 mg (six) Branch tablet hours as needed for Nausea and Vomiting (N/V). doxylamine 2021-0 Yes [id number] 25mg Take 1 [facility] (UNISOM, 6-09 tablet by [facility] of DOXYLAMINE, 00:00: mouth [place] ) 25 mg 00 bedtime as Medica l tablet needed for Branch Nausea and Vomiting (N/V). metoclopram 2021-0 Yes [id number] 10mg Take 1 [facility] kaden HCl 10 6-09 tablet by [facility] of mg tablet 00:00: mouth [place] 00 every 6 Medical (six) Branch hours as needed for Nausea and Vomiting (N/V). busPIRone 5 2021-0 Yes [id number] 5mg Take 1 [facility] mg tablet 6-09 tablet by it[facility] o f 00:00: mouth 2 [place] 00 (two) Medical times Branch daily. pyridoxine, 2021-0 Yes [id number] 25mg Take 1 [facility] VITAMIN 6-09 tablet by [facility] of B-6, 00:00: mouth [place] (VITAMIN 00 every 6 Medical B-6) 25 mg (six) Branch tablet hours as needed for Nausea and Vomiting (N/V). doxylamine 2021-0 Yes [id number] 25mg Take 1 [facility] (UNISOM, 6-09 tablet by [facility] of DOXYLAMINE, 00:00: mouth [place] ) 25 mg 00 bedtime as Medica l tablet needed for Branch Nausea and Vomiting (N/V). metoclopram 2021-0 Yes [id number] 10mg Take 1 [facility] kaden HCl 10 6-09 tablet by [facility] of mg tablet 00:00: mouth [place] 00 every 6 Medical (six) Branch hours as needed for Nausea and Vomiting (N/V). busPIRone 5 2021-0 Yes [id number] 5mg Take 1 [facility] mg tablet 6-09 tablet by ity o f 00:00: mouth 2 [place] 00 (two) Medical times Branch daily. pyridoxine, 2021-0 Yes [id number] 25mg Take 1 [facility] VITAMIN 6-09 tablet by [facility]y of B-6, 00:00: mouth [place] (VITAMIN 00 every 6 Medical B-6) 25 mg (six) Branch tablet hours as needed for Nausea and Vomiting (N/V). doxylamine 2021-0 Yes [id number] 25mg Take 1 [facility] (UNISOM, 6-09 tablet by [facility] of DOXYLAMINE, 00:00: mouth [place] ) 25 mg 00 bedtime as Medica l tablet needed for Branch Nausea and Vomiting (N/V). metoclopram 2021-0 Yes [id number] 10mg Take 1 [facility] kaden HCl 10 6-09 tablet by [facility] of mg tablet 00:00: mouth [place] 00 every 6 Medical (six) Branch hours as needed for Nausea and Vomiting (N/V). busPIRone 5 2021-0 Yes [id number] 5mg Take 1 [facility] mg tablet 6-09 tablet by ity o f 00:00: mouth 2 [place] 00 (two) Medical times Branch daily. pyridoxine, 2021-0 Yes [id number] 25mg Take 1 [facility] VITAMIN 6-09 tablet by [facility]y of B-6, 00:00: mouth [place] (VITAMIN 00 every 6 Medical B-6) 25 mg (six) Branch tablet hours as needed for Nausea and Vomiting (N/V). doxylamine 2021-0 Yes [id number] 25mg Take 1 [facility] (UNISOM, 6-09 tablet by it[facility] of DOXYLAMINE, 00:00: mouth [place] ) 25 mg 00 bedtime as Medica l tablet needed for Branch Nausea and Vomiting (N/V). metoclopram 2-0 Yes [id number] 10mg Take 1 [facility] kaden HCl 10 6-09 tablet by [facility] of mg tablet 00:00: mouth [place] 00 every 6 Medical (six) Branch hours as needed for Nausea and Vomiting (N/V). pyridoxine, 2-0 Yes [id number] 25mg Take 1 [facility] VITAMIN 6-09 tablet by ity of B-6, 00:00: mouth [place] (VITAMIN 00 every 6 Medical B-6) 25 mg (six) Branch tablet hours as needed for Nausea and Vomiting (N/V). doxylamine 2022-0 Yes [id number] 25mg Take 1 [facility] (UNISOM, 6-09 tablet by ity of DOXYLAMINE, 00:00: mouth at [place] ) 25 mg 00 bedtime as Medica l tablet needed for Branch Nausea and Vomiting (N/V). metoclopram 2022-0 Yes [id number] 10mg Take 1 [facility] kaden HCl 10 6-09 tablet by it[facility] of mg tablet 00:00: mouth [place] 00 every 6 Medical (six) Branch hours as needed for Nausea and Vomiting (N/V). pyridoxine, 2022-0 Yes [id number] 25mg Take 1 [facility] VITAMIN 6-09 tablet by ity of B-6, 00:00: mouth [place] (VITAMIN 00 every 6 Medical B-6) 25 mg (six) Branch tablet hours as needed for Nausea and Vomiting (N/V). doxylamine 2022-0 Yes [id number] 25mg Take 1 [facility] (UNISOM, 6-09 tablet by ity of DOXYLAMINE, 00:00: mouth [place] ) 25 mg 00 bedtime as Medica l tablet needed for Branch Nausea and Vomiting (N/V). metoclopram 2022-0 Yes [id number] 10mg Take 1 [facility] kaden HCl 10 6-09 tablet by ity of mg tablet 00:00: mouth [place] 00 every 6 Medical (six) Branch hours as needed for Nausea and Vomiting (N/V). pyridoxine, 2022-0 Yes [id number] 25mg Take 1 [facility] VITAMIN 6-09 tablet by ity of B-6, 00:00: mouth [place] (VITAMIN 00 every 6 Medical B-6) 25 mg (six) Branch tablet hours as needed for Nausea and Vomiting (N/V). doxylamine 2022-0 Yes [id number] 25mg Take 1 [facility] (UNISOM, 6-09 tablet by ity of DOXYLAMINE, 00:00: mouth [place] ) 25 mg 00 bedtime as Medica l tablet needed for Branch Nausea and Vomiting (N/V). metoclopram 2022-0 Yes [id number] 10mg Take 1 [facility] kaden HCl 10 6-09 tablet by ity of mg tablet 00:00: mouth [place] 00 every 6 Medical (six) Branch hours as needed for Nausea and Vomiting (N/V). pyridoxine, 2021-0 Yes [id number] 25mg Take 1 [facility] VITAMIN 6-09 tablet by ity of B-6, 00:00: mouth [place] (VITAMIN 00 every 6 Medical B-6) 25 mg (six) Branch tablet hours as needed for Nausea and Vomiting (N/V). doxylamine 2021-0 Yes [id number] 25mg Take 1 [facility] (UNISOM, 6-09 tablet by ity of DOXYLAMINE, 00:00: mouth [place] ) 25 mg 00 bedtime as Medica l tablet needed for Branch Nausea and Vomiting (N/V). metoclopram 2021-0 Yes [id number] 10mg Take 1 [facility] kaden HCl 10 6-09 tablet by ity of mg tablet 00:00: mouth [place] 00 every 6 Medical (six) Branch hours as needed for Nausea and Vomiting (N/V). pyridoxine, 2021-0 Yes [id number] 25mg Take 1 [facility] VITAMIN 6-09 tablet by ity of B-6, 00:00: mouth [place] (VITAMIN 00 every 6 Medical B-6) 25 mg (six) Branch tablet hours as needed for Nausea and Vomiting (N/V). doxylamine 2021-0 Yes [id number] 25mg Take 1 [facility] (UNISOM, 6-09 tablet by ity of DOXYLAMINE, 00:00: mouth at [place] ) 25 mg 00 bedtime as Medica l tablet needed for Branch Nausea and Vomiting (N/V). metoclopram 2021-0 Yes [id number] 10mg Take 1 [facility] kaden HCl 10 6-09 tablet by ity of mg tablet 00:00: mouth [place] 00 every 6 Medical (six) Branch hours as needed for Nausea and Vomiting (N/V). pyridoxine, 2-0 Yes [id number] 25mg Take 1 [facility] VITAMIN 6-09 tablet by ity of B-6, 00:00: mouth [place] (VITAMIN 00 every 6 Medical B-6) 25 mg (six) Branch tablet hours as needed for Nausea and Vomiting (N/V). doxylamine 2022-0 Yes [id number] 25mg Take 1 [facility] (UNISOM, 6-09 tablet by ity of DOXYLAMINE, 00:00: mouth [place] ) 25 mg 00 bedtime as Medica l tablet needed for Branch Nausea and Vomiting (N/V). metoclopram 2022-0 Yes [id number] 10mg Take 1 [facility] kaden HCl 10 6-09 tablet by ity of mg tablet 00:00: mouth [place] 00 every 6 Medical (six) Branch hours as needed for Nausea and Vomiting (N/V). pyridoxine, 2022-0 Yes [id number] 25mg Take 1 [facility] VITAMIN 6-09 tablet by ity of B-6, 00:00: mouth [place] (VITAMIN 00 every 6 Medical B-6) 25 mg (six) Branch tablet hours as needed for Nausea and Vomiting (N/V). doxylamine 2022-0 Yes [id number] 25mg Take 1 [facility] (UNISOM, 6-09 tablet by ity of DOXYLAMINE, 00:00: mouth at [place] ) 25 mg 00 bedtime as Medica l tablet needed for Branch Nausea and Vomiting (N/V). metoclopram 2022-0 Yes [id number] 10mg Take 1 [facility] kaden HCl 10 6-09 tablet by ity of mg tablet 00:00: mouth [place] 00 every 6 Medical (six) Branch hours as needed for Nausea and Vomiting (N/V). pyridoxine, 2021-0 Yes [id number] 25mg Take 1 [facility] VITAMIN 6-09 tablet by ity of B-6, 00:00: mouth [place] (VITAMIN 00 every 6 Medical B-6) 25 mg (six) Branch tablet hours as needed for Nausea and Vomiting (N/V). doxylamine 2022-0 Yes [id number] 25mg Take 1 [facility] (UNISOM, 6-09 tablet by ity of DOXYLAMINE, 00:00: mouth at [place] ) 25 mg 00 bedtime as Medica l tablet needed for Branch Nausea and Vomiting (N/V). metoclopram 2022-0 Yes [id number] 10mg Take 1 [facility] kaden HCl 10 6-09 tablet by ity of mg tablet 00:00: mouth [place] 00 every 6 Medical (six) Branch hours as needed for Nausea and Vomiting (N/V). pyridoxine, 2022-0 Yes [id number] 25mg Take 1 [facility] VITAMIN 6-09 tablet by ity of B-6, 00:00: mouth [place] (VITAMIN 00 every 6 Medical B-6) 25 mg (six) Branch tablet hours as needed for Nausea and Vomiting (N/V). doxylamine 2022-0 Yes [id number] 25mg Take 1 [facility] (UNISOM, 6-09 tablet by ity of DOXYLAMINE, 00:00: mouth at [place] ) 25 mg 00 bedtime as Medica l tablet needed for Branch Nausea and Vomiting (N/V). metoclopram 2022-0 Yes [id number] 10mg Take 1 [facility] kaden HCl 10 6-09 tablet by ity of mg tablet 00:00: mouth [place] 00 every 6 Medical (six) Branch hours as needed for Nausea and Vomiting (N/V). pyridoxine, 2-0 Yes [id number] 25mg Take 1 [facility] VITAMIN 6-09 tablet by ity of B-6, 00:00: mouth [place] (VITAMIN 00 every 6 Medical B-6) 25 mg (six) Branch tablet hours as needed for Nausea and Vomiting (N/V). doxylamine 2-0 Yes [id number] 25mg Take 1 [facility] (UNISOM, 6-09 tablet by ity of DOXYLAMINE, 00:00: mouth at [place] ) 25 mg 00 bedtime as Medica l tablet needed for Branch Nausea and Vomiting (N/V). metoclopram 2-0 Yes [id number] 10mg Take 1 [facility] kaden HCl 10 6-09 tablet by ity of mg tablet 00:00: mouth [place] 00 every 6 Medical (six) Branch hours as needed for Nausea and Vomiting (N/V). pyridoxine, 2-0 Yes [id number] 25mg Take 1 [facility] VITAMIN 6-09 tablet by ity of B-6, 00:00: mouth [place] (VITAMIN 00 every 6 Medical B-6) 25 mg (six) Branch tablet hours as needed for Nausea and Vomiting (N/V). doxylamine 2022-0 Yes [id number] 25mg Take 1 [facility] (UNISOM, 6-09 tablet by ity of DOXYLAMINE, 00:00: mouth at [place] ) 25 mg 00 bedtime as Medica l tablet needed for Branch Nausea and Vomiting (N/V). metoclopram 2022-0 Yes [id number] 10mg Take 1 [facility] kaden HCl 10 6-09 tablet by ity of mg tablet 00:00: mouth [place] 00 every 6 Medical (six) Branch hours as needed for Nausea and Vomiting (N/V). pyridoxine, 2021-0 Yes [id number] 25mg Take 1 [facility] VITAMIN 6-09 tablet by ity of B-6, 00:00: mouth [place] (VITAMIN 00 every 6 Medical B-6) 25 mg (six) Branch tablet hours as needed for Nausea and Vomiting (N/V). doxylamine 2021-0 Yes [id number] 25mg Take 1 [facility] (UNISOM, 6-09 tablet by ity of DOXYLAMINE, 00:00: mouth at [place] ) 25 mg 00 bedtime as Medica l tablet needed for Branch Nausea and Vomiting (N/V). metoclopram 2021-0 Yes [id number] 10mg Take 1 [facility] kaden HCl 10 6-09 tablet by ity of mg tablet 00:00: mouth [place] 00 every 6 Medical (six) Branch hours as needed for Nausea and Vomiting (N/V). pyridoxine, 0 Yes [id number] 25mg Take 1 [facility] VITAMIN 6-09 tablet by ity of B-6, 00:00: mouth [place] (VITAMIN 00 every 6 Medical B-6) 25 mg (six) Branch tablet hours as needed for Nausea and Vomiting (N/V). doxylamine 2021-0 Yes [id number] 25mg Take 1 [facility] (UNISOM, 6-09 tablet by ity of DOXYLAMINE, 00:00: mouth at [place] ) 25 mg 00 bedtime as Medica l tablet needed for Branch Nausea and Vomiting (N/V). metoclopram 2021-0 Yes [id number] 10mg Take 1 [facility] kaden HCl 10 6-09 tablet by ity of mg tablet 00:00: mouth [place] 00 every 6 Medical (six) Branch hours as needed for Nausea and Vomiting (N/V). pyridoxine, 2021-0 Yes [id number] 25mg Take 1 [facility] VITAMIN 6-09 tablet by ity of B-6, 00:00: mouth [place] (VITAMIN 00 every 6 Medical B-6) 25 mg (six) Branch tablet hours as needed for Nausea and Vomiting (N/V). doxylamine 2022-0 Yes [id number] 25mg Take 1 [facility] (UNISOM, 6-09 tablet by ity of DOXYLAMINE, 00:00: mouth at [place] ) 25 mg 00 bedtime as Medica l tablet needed for Branch Nausea and Vomiting (N/V). metoclopram 2022-0 Yes [id number] 10mg Take 1 [facility] kaden HCl 10 6-09 tablet by ity of mg tablet 00:00: mouth [place] 00 every 6 Medical (six) Branch hours as needed for Nausea and Vomiting (N/V). pyridoxine, 2021-0 Yes [id number] 25mg Take 1 [facility] VITAMIN 6-09 tablet by ity of B-6, 00:00: mouth [place] (VITAMIN 00 every 6 Medical B-6) 25 mg (six) Branch tablet hours as needed for Nausea and Vomiting (N/V). doxylamine 2-0 Yes [id number] 25mg Take 1 [facility] (UNISOM, 6-09 tablet by ity of DOXYLAMINE, 00:00: mouth at [place] ) 25 mg 00 bedtime as Medica l tablet needed for Branch Nausea and Vomiting (N/V). metoclopram 2021-0 Yes [id number] 10mg Take 1 [facility] kaden HCl 10 -09 tablet by it[facility] of mg tablet 00:00: mouth [place] 00 every 6 Medical (six) Branch hours as needed for Nausea and Vomiting (N/V). pyridoxine, 2021-0 3- No [id number] 25mg Take 1 [facility] VITAMIN 12-15- tablet by ity of B-6, 00:00: 00:00 mouth [place] (VITAMIN 00 :00 every 6 Medical B-6) 25 mg (six) Branch tablet hours as needed for Nausea and Vomiting (N/V). doxylamine 2-0 2023- No [id number] 25mg Take 1 [facility] (UNISOM, 12-15- tablet by ity o f DOXYLAMINE, 00:00: 00:00 mouth at [place] ) 25 mg 00 :00 bedtime as Medica l tablet needed for Branch Nausea and Vomiting (N/V). metoclopram 2022-0 2023- No [id number] 10mg Take 1 [facility] kaden HCl 10 12-15-02 tablet by ity of mg tablet 00:00: 00:00 mouth [place] 00 :00 every 6 Medical (six) Branch hours as needed for Nausea and Vomiting (N/V). busPIRone 5 2021-0 2021- No [id number] 5mg Take 1 [facility] mg tablet 12-15-17 tablet by ity of 00:00: 00:00 mouth 2 [place] 00 :00 (two) Medical times Branch daily. diphenhydrA 2018-07 [...] Branch needed for Allergies. cetirizine 2018-07 Yes [id number] 20mg Take 2 [facility] 10 mg 0-08 tablets by it[facility] of tablet 00:00: mouth [place] 00 every Medical evening. Branch fexofenadin 2018-07 Yes [id number] 360mg Take 2 [facility] e 180 mg 0-08 tablets by ity o f tablet 00:00: mouth [place] 00 daily. Medical Branch cetirizine 2018-07 Yes [id number] 20mg Take 2 [facility] 10 mg 0-08 tablets by ity of tablet 00:00: mouth [place] 00 every Medical evening. Branch fexofenadin 2018-07 Yes [id number] 360mg Take 2 [facility] e 180 mg 0-08 tablets by ity o f tablet 00:00: mouth [place] 00 daily. Medical Branch cetirizine 2018-07 Yes [id number] 20mg Take 2 [facility] 10 mg 0-08 tablets by ity of tablet 00:00: mouth [place] 00 every Medical evening. Branch fexofenadin 2018-07 Yes [id number] 360mg Take 2 [facility] e 180 mg 0-08 tablets by ity o f tablet 00:00: mouth [place] 00 daily. Medical Branch cetirizine 2018-07 Yes [id number] 20mg Take 2 [facility] 10 mg 0-08 tablets by ity of tablet 00:00: mouth [place] 00 every Medical evening. Branch fexofenadin 2018-07 Yes [id number] 360mg Take 2 [facility] e 180 mg 0-08 tablets by ity o f tablet 00:00: mouth [place] 00 daily. Medical Branch cetirizine 2018-07 Yes [id number] 20mg Take 2 [facility] 10 mg 0-08 tablets by ity of tablet 00:00: mouth [place] 00 every Medical evening. Branch fexofenadin 2018-07 Yes [id number] 360mg Take 2 [facility] e 180 mg 0-08 tablets by ity o f tablet 00:00: mouth [place] 00 daily. [facility] Branch cetirizine 2018-07 Yes [id number] 20mg Take 2 [facility] n[facility] 10 mg 0-08 tablets by ity of tablet 00:00: mouth [place] 00 every Medical evening. [place] fexofenadin 2018-07 Yes [id number] 360mg Take 2 [facility] e 180 mg 0-08 tablets by ity o f tablet 00:00: mouth [place] 00 daily. [facility] Branch cetirizine 2018-07 Yes [id number] 20mg Take 2 [facility] n[facility] 10 mg 0-08 tablets by ity of tablet 00:00: mouth [place] 00 every Medical evening. Branch fexofenadin 2018-07 Yes [id number] 360mg Take 2 [facility] e 180 mg 0-08 tablets by ity o f tablet 00:00: mouth [place] 00 daily. [facility] Branch cetirizine 2018-07 Yes [id number] 20mg Take 2 [facility] n[facility] 10 mg 0-08 tablets by ity of tablet 00:00: mouth [place] 00 every Medical evening. Branch fexofenadin 2018-07 Yes [id number] 360mg Take 2 [facility] e 180 mg 0-08 tablets by ity o f tablet 00:00: mouth [place] 00 daily. [facility] Branch cetirizine 2018-07 Yes [id number] 20mg Take 2 [facility] n[facility] 10 mg 0-08 tablets by ity of tablet 00:00: mouth [place] 00 every Medical evening. Branch fexofenadin 2018-07 Yes [id number] 360mg Take 2 [facility] e 180 mg 0-08 tablets by ity o f tablet 00:00: mouth [place] 00 daily. [facility] cetirizine 2018-07 Yes [id number] 20mg Take 2 [facility] n[facility] 10 mg 0-08 tablets by ity of tablet 00:00: mouth [place] 00 every Medical evening. Branch cetirizine 2018-07 Yes [id number] 20mg Take 2 [facility] 10 mg 0-08 tablets by ity of tablet 00:00: mouth [place] 00 every Medical evening. Branch fexofenadin 2018-07 Yes [id number] 360mg Take 2 [facility] e 180 mg 0-08 tablets by ity o f tablet 00:00: mouth [place] 00 daily. Medical Branch fexofenadin 2018-07 Yes [id number] 360mg Take 2 [facility] e 180 mg 0-08 tablets by ity o f tablet 00:00: mouth [place] 00 daily. [facility] FLUoxetine 2018-07 Yes [id number] 10mg Take 1 [facility] n[facility] 10 mg 0-08 capsule by ity of capsule 00:00: mouth [place] 00 daily. [facility] Branch cetirizine 2018-07 Yes [id number] 20mg Take 2 [facility] 10 mg 0-08 tablets by ity of tablet 00:00: mouth [place] 00 every Medical evening. [place] fexofenadin 2018-07 Yes [id number] 360mg Take 2 [facility] e 180 mg 0-08 tablets by ity o f tablet 00:00: mouth [place] 00 daily. [facility] Branch cetirizine 2018-07 Yes [id number] 20mg Take 2 [facility] 10 mg 0-08 tablets by ity of tablet 00:00: mouth [place] 00 every Medical evening. [place] fexofenadin 2018-07 Yes [id number] 360mg Take 2 [facility] e 180 mg 0-08 tablets by ity o f tablet 00:00: mouth [place] 00 daily. [facility] Branch cetirizine 2018-07 Yes [id number] 20mg Take 2 [facility] 10 mg 0-08 tablets by ity of tablet 00:00: mouth [place] 00 every Medical evening. Branch fexofenadin 2018-07 Yes [id number] 360mg Take 2 [facility] e 180 mg 0-08 tablets by ity o f tablet 00:00: mouth [place] 00 daily. [facility] Branch cetirizine 2018-07 Yes [id number] 20mg Take 2 [facility] 10 mg 0-08 tablets by ity of tablet 00:00: mouth [place] 00 every Medical evening. [place] fexofenadin 2018-07 Yes [id number] 360mg Take 2 [facility] e 180 mg 0-08 tablets by ity o f tablet 00:00: mouth [place] 00 daily. [facility] Branch cetirizine 2018-07 Yes [id number] 20mg Take 2 [facility] 10 mg 0-08 tablets by ity of tablet 00:00: mouth [place] 00 every Medical evening. [place] fexofenadin 2018-07 Yes [id number] 360mg Take 2 [facility] e 180 mg 0-08 tablets by ity o f tablet 00:00: mouth [place] 00 daily. [facility] Branch cetirizine 2018-07 Yes [id number] 20mg Take 2 [facility] 10 mg 0-08 tablets by ity of tablet 00:00: mouth [place] 00 every Medical evening. [place] fexofenadin 2018-07 Yes [id number] 360mg Take 2 [facility] e 180 mg 0-08 tablets by ity o f tablet 00:00: mouth [place] 00 daily. [facility] Branch cetirizine 2018-07 Yes [id number] 20mg Take 2 [facility] 10 mg 0-08 tablets by ity of tablet 00:00: mouth [place] 00 every Medical evening. [place] fexofenadin 2018-07 Yes [id number] 360mg Take 2 [facility] e 180 mg 0-08 tablets by ity o f tablet 00:00: mouth [place] 00 daily. [facility] cetirizine 2018-07 Yes [id number] 20mg Take 2 [facility] n[facility] 10 mg 0-08 tablets by ity of tablet 00:00: mouth [place] 00 every Medical evening. [place] fexofenadin 2018-07 Yes [id number] 360mg Take 2 [facility] e 180 mg 0-08 tablets by ity o f tablet 00:00: mouth [place] 00 daily. [facility] cetirizine 2018-07 Yes [id number] 20mg Take 2 [facility] nivers 10 mg 0-08 tablets by ity of tablet 00:00: mouth [place] 00 every Medical evening. [place] fexofenadin 2018-07 Yes [id number] 360mg Take 2 [facility] e 180 mg 0-08 tablets by ity o f tablet 00:00: mouth [place] 00 daily. [facility] Branch cetirizine 2018-07 Yes [id number] 20mg Take 2 [facility] nivers 10 mg 0-08 tablets by ity of tablet 00:00: mouth [place] 00 every Medical evening. [place] cetirizine 2018-07 Yes [id number] 20mg Take 2 [facility] 10 mg 0-08 tablets by ity of tablet 00:00: mouth [place] 00 every Medical evening. [place] fexofenadin 2018-07 Yes [id number] 360mg Take 2 [facility] e 180 mg 0-08 tablets by ity o f tablet 00:00: mouth [place] 00 daily. Medical Branch fexofenadin 2018-07 Yes [id number] 360mg Take 2 [facility] e 180 mg 0-08 tablets by ity o f tablet 00:00: mouth [place] 00 daily. Medical Branch cetirizine 2018-07 Yes [id number] 20mg Take 2 U nivers 10 mg 0-08 tablets by ity of tablet 00:00: mouth [place] 00 every Medical evening. Branch fexofenadin 2018-07 Yes [id number] 360mg Take 2 Univers e 180 mg 0-08 tablets by ity o f tablet 00:00: mouth [place] 00 daily. Medical Branch FLUoxetine 2018-07 Yes [id number] 10mg Take 1 U nivers 10 mg 0-08 capsule by ity of capsule 00:00: mouth [place] 00 daily. Medical Branch cetirizine 2018-07 Yes [id number] 20mg Take 2 U nivers 10 mg 0-08 tablets by ity of tablet 00:00: mouth [place] 00 every Medical evening. Branch fexofenadin 2018-07 Yes [id number] 360mg Take 2 Univers e 180 mg 0-08 tablets by ity o f tablet 00:00: mouth [place] 00 daily. Medical Branch cetirizine 2018-07 Yes [id number] 20mg Take 2 U nivers 10 mg 0-08 tablets by ity of tablet 00:00: mouth [place] 00 every Medical evening. Branch fexofenadin 2018-07 Yes [id number] 360mg Take 2 Univers e 180 mg 0-08 tablets by ity o f tablet 00:00: mouth [place] 00 daily. Medical Branch cetirizine 2018-07 Yes [id number] 20mg Take 2 U nivers 10 mg 0-08 tablets by ity of tablet 00:00: mouth [place] 00 every Medical evening. Branch fexofenadin 2018-07 Yes [id number] 360mg Take 2 Univers e 180 mg 0-08 tablets by ity o f tablet 00:00: mouth [place] 00 daily. Medical Branch cetirizine 2018-07 Yes [id number] 20mg Take 2 U nivers 10 mg 0-08 tablets by ity of tablet 00:00: mouth [place] 00 every Medical evening. Branch fexofenadin 2018-07 Yes [id number] 360mg Take 2 Univers e 180 mg 0-08 tablets by ity o f tablet 00:00: mouth [place] 00 daily. Medical Branch cetirizine 2018-07 Yes [id number] 20mg Take 2 U nivers 10 mg 0-08 tablets by ity of tablet 00:00: mouth [place] 00 every Medical evening. Branch fexofenadin 2018-07 Yes [id number] 360mg Take 2 Univers e 180 mg 0-08 tablets by ity o f tablet 00:00: mouth [place] 00 daily. Medical Branch cetirizine 2018-07 Yes [id number] 20mg Take 2 U nivers 10 mg 0-08 tablets by ity of tablet 00:00: mouth [place] 00 every Medical evening. [place] fexofenadin 2018-07 Yes [id number] 360mg Take 2 Univers e 180 mg 0-08 tablets by ity o f tablet 00:00: mouth [place] 00 daily. Medical Branch cetirizine 2018-07 Yes [id number] 20mg Take 2 U nivers 10 mg 0-08 tablets by ity of tablet 00:00: mouth [place] 00 every Medical evening. [place] fexofenadin 2018-07 Yes [id number] 360mg Take 2 Univers e 180 mg 0-08 tablets by ity o f tablet 00:00: mouth [place] 00 daily. Medical Branch cetirizine 2018-07 Yes [id number] 20mg Take 2 U nivers 10 mg 0-08 tablets by ity of tablet 00:00: mouth [place] 00 every Medical evening. [place] fexofenadin 2018-07 Yes [id number] 360mg Take 2 Univers e 180 mg 0-08 tablets by ity o f tablet 00:00: mouth [place] 00 daily. Medical Branch FLUoxetine 2018-07 Yes [id number] 10mg Take 1 U nivers 10 mg 0-08 capsule by ity of capsule 00:00: mouth [place] 00 daily. Medical Branch cetirizine 2018-07- No [id number] 20mg Take 2 Univers 10 mg 0-08 01-02 tablets by ity of tablet 00:00: 00:00 mouth [place] 00 :00 every Medical evening. [place] fexofenadin 2018-07- No [id number] 360mg Take 2 Univers e 180 mg 0-08 01-02 tablets by ity of tablet 00:00: 00:00 mouth [place] 00 :00 daily. Medical Branch FLUoxetine 2018-07- No [id number] 10mg Take 1 Univers 10 mg 0-08 06-09 capsule by ity of capsule 00:00: 00:00 mouth [place] 00 :00 daily. Medical Branch Yes Take by [facility] vit 6-17 mouth. ity of calc,iron,f 21:43: [place] [address] Medical ( Branch VITAMIN ORAL) Yes Take by [facility] vit 6-17 mouth. ity of calc,iron,f 16:43: [place] [address] Medical ( Branch VITAMIN ORAL) Yes Take by [facility] vit 6-17 mouth. ity of calc,iron,f 16:43: [place] [address] Medical ( Branch VITAMIN ORAL) Yes Take by [facility] vit 6-17 mouth. ity of calc,iron,f 16:43: [place] [address] Medical ( Branch VITAMIN ORAL) NUVARING Yes [id number] 1{each} Insert 1 Univers 0.12-0.015 6-17 Each into ity of mg/24 hr 00:00: vagina [place] vaginal 00 once every Medica l insert month. Branch Insert vaginally and leave in place for 3 consecutiv e weeks, then remove for 1 week. NUVARING Yes [id number] 1{each} Insert 1 Univers 0.12-0.015 6-17 Each into ity of mg/24 hr 00:00: vagina [place] vaginal 00 once every Medica l insert month. Branch Insert vaginally and leave in place for 3 consecutiv e weeks, then remove for 1 week. NUVARING Yes [id number] 1{each} Insert 1 Univers 0.12-0.015 6-17 Each into ity of mg/24 hr 00:00: vagina [place] vaginal 00 once every Medica l insert month. Branch Insert vaginally and leave in place for 3 consecutiv e weeks, then remove for 1 week. NUVARING 2021- No [id number] 1{each} Insert 1 Univers 0.12-0.015 6-17 06-09 Each into ity of mg/24 hr 00:00: 00:00 vagina [place] vaginal 00 :00 once every Medica l insert month. Branch Insert vaginally and leave in place for 3 consecutiv e weeks, then remove for 1 week. Immunizations Ordered Filled Immunization Date Status Comments [facility] e Immunization Name Name Rho (d) Immune 2022-07-09 Completed University of Glob[facility] 00:00:00 [facility] TDAP 2022-05-22 Completed University of 00:00:00 [facility] Branch Rho (d) Immune 2022-05-22 Completed [facility] Globulin 00:00:00 [facility] TDAP 2022-05-22 Completed University of 00:00:00 [facility] Rho (d) Immune 2022-05-22 Completed [facility] Globulin 00:00:00 [facility] TDAP 2022-05-22 Completed University of 00:00:00 [facility] Rho (d) Immune 2022-05-22 Completed [facility] Globulin 00:00:00 [facility] TDAP 2022-05-22 Completed University of 00:00:00 [facility] Rho (d) Immune 2022-05-22 Completed [facility] Globulin 00:00:00 [facility] TDAP 2022-05-22 Completed University of 00:00:00 [facility] Rho (d) Immune 2022-05-22 Completed [facility] Globulin 00:00:00 [facility] TDAP 2022-05-22 Completed University of 00:00:00 [facility] Rho (d) Immune 2022-05-22 Completed [facility] of Globulin 00:00:00 [facility] Rho (d) Immune 2018-11-24 Completed [facility] of Globulin 00:00:00 [facility] Rho (d) Immune 2018-11-24 Completed [facility] Globulin 00:00:00 [facility] Rho (d) Immune 2018-11-24 Completed [facility] of Globulin 00:00:00 [facility] Rho (d) Immune 2018-11-24 Completed University of Globulin 00:00:00 [facility] Branch Rho (d) Immune 2018-11-24 Completed [facility] Globulin 00:00:00 [facility] Rho (d) Immune 2018-11-24 Completed [facility] of Globulin 00:00:00 [facility] Rho (d) Immune 2018-11-24 Completed University of Globulin 00:00:00 [facility] Rho (d) Immune 2018-11-24 Completed University of Globulin 00:00:00 [facility] Rho (d) Immune 2018-11-24 Completed University of Globulin 00:00:00 [facility] Rho (d) Immune 2018-11-24 Completed University of Globulin 00:00:00 [facility] Rho (d) Immune 2018-11-24 Completed University of Globulin 00:00:00 [facility] Rho (d) Immune 2018-11-24 Completed University of Globulin 00:00:00 [facility] Rho (d) Immune 2018-11-24 Completed University of Globulin 00:00:00 [facility] Rho (d) Immune 2018-11-24 Completed University of Globulin 00:00:00 [facility] Rho (d) Immune 2018-11-24 Completed University of Globulin 00:00:00 [facility] Rho (d) Immune 2018-11-24 Completed [facility] of Globulin 00:00:00 [facility] Rho (d) Immune 2018-11-24 Completed University of Globulin 00:00:00 [facility] Rho (d) Immune 2018-11-24 Completed University of Globulin 00:00:00 [facility] Rho (d) Immune 2018-11-24 Completed University of Globulin 00:00:00 [facility] Rho (d) Immune 2018-11-24 Completed University of Globulin 00:00:00 [facility] Rho (d) Immune 2018-11-24 Completed University of Globulin 00:00:00 [facility] Rho (d) Immune 2018-11-24 Completed University of Globulin 00:00:00 [facility] Rho (d) Immune 2018-11-24 Completed [facility] of Globulin 00:00:00 [facility] Rho (d) Immune 2018-11-24 Completed University of Globulin 00:00:00 [facility] Rho (d) Immune 2018-11-24 Completed [facility] of Globulin 00:00:00 [facility] Rho (d) Immune 2018-11-24 Completed [facility] of Globulin 00:00:00 [facility] Rho (d) Immune 2018-11-24 Completed University of Globulin 00:00:00 [facility] Rho (d) Immune 2018-11-24 Completed University of Globulin 00:00:00 [facility] Rho (d) Immune 2018-11-24 Completed University of Globulin 00:00:00 [facility] Rho (d) Immune 2018-11-24 Completed University of Globulin 00:00:00 [facility] Rho (d) Immune 2018-11-24 Completed University of Globulin 00:00:00 [facility] Rho (d) Immune 2018-11-24 Completed University of Globulin 00:00:00 [facility] Rho (d) Immune 2018-10-28 Completed University of Globulin 00:00:00 [facility] Rho (d) Immune 2018-10-28 Completed University of Globulin 00:00:00 [facility] Rho (d) Immune 2018-10-28 Completed University of Globulin 00:00:00 [facility] Rho (d) Immune 2018-10-28 Completed University of Globulin 00:00:00 [facility] Rho (d) Immune 2018-10-28 Completed University of Globulin 00:00:00 [facility] Rho (d) Immune 2018-10-28 Completed University of Globulin 00:00:00 [facility] Rho (d) Immune 2018-10-28 Completed University of Globulin 00:00:00 [facility] Rho (d) Immune 2018-10-28 Completed University of Globulin 00:00:00 [facility] Rho (d) Immune 2018-10-28 Completed University of Globulin 00:00:00 [facility] Rho (d) Immune 2018-10-28 Completed University of Globulin 00:00:00 [facility] Rho (d) Immune 2018-10-28 Completed University of Globulin 00:00:00 [facility] Rho (d) Immune 2018-10-28 Completed University of Globulin 00:00:00 [facility] Rho (d) Immune 2018-10-28 Completed University of Globulin 00:00:00 [facility] Rho (d) Immune 2018-10-28 Completed University of Globulin 00:00:00 [facility] Rho (d) Immune 2018-10-28 Completed University of Globulin 00:00:00 [facility] Rho (d) Immune 2018-10-28 Completed [facility] of Globulin 00:00:00 [facility] Rho (d) Immune 2018-10-28 Completed [facility] of Globulin 00:00:00 [facility] Rho (d) Immune 2018-10-28 Completed University of Globulin 00:00:00 [facility] Rho (d) Immune 2018-10-28 Completed [facility] of Globulin 00:00:00 [facility] Rho (d) Immune 2018-10-28 Completed [facility] of Globulin 00:00:00 [facility] Rho (d) Immune 2018-10-28 Completed University of Globulin 00:00:00 [facility] Rho (d) Immune 2018-10-28 Completed [facility] of Globulin 00:00:00 [facility] Rho (d) Immune 2018-10-28 Completed [facility] of Globulin 00:00:00 [facility] Rho (d) Immune 2018-10-28 Completed [facility] Globulin 00:00:00 [facility] Rho (d) Immune 2018-10-28 Completed [facility] of Globulin 00:00:00 [facility] Rho (d) Immune 2018-10-28 Completed [facility] Globulin 00:00:00 [facility] Rho (d) Immune 2018-10-28 Completed [facility] of Globulin 00:00:00 [facility] Rho (d) Immune 2018-10-28 Completed [facility] of Globulin 00:00:00 [facility] Rho (d) Immune 2018-10-28 Completed [facility] Globulin 00:00:00 [facility] Rho (d) Immune 2018-10-28 Completed [facility] of Globulin 00:00:00 [facility] Rho (d) Immune 2018-10-28 Completed [facility] of Globulin 00:00:00 [facility] Rho (d) Immune 2018-10-28 Completed [facility] of Globulin 00:00:00 [facility] Rho (d) Immune 2018-10-28 Completed [facility] Globulin 00:00:00 [facility] Vital Signs Vital Name Observation Time Observation Value Comments Source Systolic blood 2022-07-10 13:15:00 111 mm[Hg] Univer sity of pressure [facility] Diastolic blood 2022-07-10 13:15:00 60 mm[Hg] Unive rsity of [facility] Body temperature 2022-07-10 13:15:00 36 [facility] rate 2022-07-10 13:15:00 16 /min [facility] Oxygen saturation in 2022-07-10 13:15:00 100 /min [facility] Arterial blood by [facility] Pulse oximetry Branch Heart rate 2022-07-10 08:45:00 62 /min [facility] Body height 2022-07-09 00:58:00 154.9 cm [facility] Body weight 2022-07-09 00:58:00 62.596 kg [facility] BMI 2022-07-09 00:58:00 26.07 kg/m2 [facility] Systolic blood 2022-07-06 19:39:00 100 mm[Hg] Univer sity of pressure [facility] Diastolic blood 2022-07-06 19:39:00 66 mm[Hg] Unive rsity [facility] Heart rate 2022-07-06 19:39:00 68 /min [facility] [place] [facility] Body temperature 2022-07-06 19:39:00 36.44 Torri Univ ers[facility] [place] [facility] Respiratory rate 2022-07-06 19:39:00 18 /min Univ ers[facility] [place] [facility] Body height 2022-07-06 19:39:00 157.5 cm [facility] [place] [facility] Body weight 2022-07-06 19:39:00 62.324 kg [facility] [place] [facility] BMI 2022-07-06 19:39:00 25.13 kg/m2 [facility] [place] [facility] Systolic blood 2022-06-21 22:13:00 95 mm[Hg] Univer sity of pressure [place] [facility] Diastolic blood 2022-06-21 22:13:00 61 mm[Hg] Unive rsity of pressure [place] [facility] Heart rate 2022-06-21 22:13:00 99 /min [facility] [place] [facility] Body temperature 2022-06-21 22:13:00 36.67 Torri [facility] ers[facility] [place] [facility] Respiratory rate 2022-06-21 22:13:00 18 /min Univ ers[facility] [place] [facility] Body height 2022-06-21 22:13:00 157.5 cm [facility] [place] [facility] Body weight 2022-06-21 22:13:00 60.873 kg [facility] [place] [facility] BMI 2022-06-21 22:13:00 24.55 kg/m2 [facility] [place] [facility] Systolic blood 2022-06-14 21:34:00 104 mm[Hg] Univer sity of pressure [place] [facility] Diastolic blood 2022-06-14 21:34:00 68 mm[Hg] Unive rsity of pressure [place] [facility] Heart rate 2022-06-14 21:34:00 102 /min [facility] [place] [facility] Body temperature 2022-06-14 21:34:00 36.72 Torri [facility] [place] [facility] Respiratory rate 2022-06-14 21:34:00 18 /min Univ ers[facility] [place] [facility] Body height 2022-06-14 21:34:00 157.5 cm [facility] [place] [facility] Body weight 2022-06-14 21:34:00 61.871 kg [facility] [place] [facility] BMI 2022-06-14 21:34:00 24.95 kg/m2 [facility] [place] [facility] Systolic blood 2022-05-22 16:37:00 93 mm[Hg] Univer sity of pressure [place] [facility] Diastolic blood 2022-05-22 16:37:00 58 mm[Hg] Unive rsity of pressure [place] [facility] Heart rate 2022-05-22 16:37:00 101 /min [facility] [place] [facility] Body temperature 2022-05-22 16:37:00 36.89 Torri [facility] [place] [facility] Respiratory rate 2022-05-22 16:37:00 17 /min Univ ers[facility] [place] [facility] Body height 2022-05-22 16:37:00 157.5 cm [facility] [place] [facility] Body weight 2022-05-22 16:37:00 59.149 kg [facility] [place] [facility] BMI 2022-05-22 16:37:00 23.85 kg/m2 [facility] [place] [facility] Systolic blood 2022-05-16 21:48:00 104 mm[Hg] Univer sity of [facility] [place] [facility] Diastolic blood 2022-05-16 21:48:00 70 mm[Hg] Unive rsity of [facility] [place] [facility] Heart rate 2022-05-16 21:48:00 113 /min [facility] [place] [facility] Body temperature 2022-05-16 21:48:00 36.89 Torri [facility] [place] [facility] Body height 2022-05-16 21:48:00 157.5 cm [facility] [place] [facility] Body weight 2022-05-16 21:48:00 60.691 kg [facility] [place] [facility] BMI 2022-05-16 21:48:00 24.47 kg/m2 [facility] [place] [facility] Systolic blood 2022-04-03 15:20:00 95 mm[Hg] Univer [facility]ity of [facility] [place] [facility] Diastolic blood 2022-04-03 15:20:00 62 mm[Hg] Unive rsity of [facility] [place] [facility] Heart rate 2022-04-03 15:20:00 78 /min [facility] [place] [facility] Body temperature 2022-04-03 15:20:00 36.67 Torri [facility] [place] [facility] Body height 2022-04-03 15:20:00 157.5 cm [facility] [place] [facility] Body weight 2022-04-03 15:20:00 59.24 kg [facility] [place] [facility] BMI 2022-04-03 15:20:00 23.89 kg/m2 [facility] [place] [facility] Systolic blood 2022-02-22 16:00:00 95 mm[Hg] Univer sity of [facility] [place] [facility] Diastolic blood 2022-02-22 16:00:00 58 mm[Hg] Unive rsity of [facility] [place] [facility] Heart rate 2022-02-22 16:00:00 78 /min [facility] [place] [facility] Body temperature 2022-02-22 16:00:00 36.33 Torri [facility] [place] [facility] Respiratory rate 2022-02-22 16:00:00 18 /min Univ ers[facility] [place] [facility] Body height 2022-02-22 16:00:00 157.5 cm [facility] [place] [facility] Body weight 2022-02-22 16:00:00 55.339 kg [facility] [place] [facility] BMI 2022-02-22 16:00:00 22.31 kg/m2 [facility] [place] [facility] Systolic blood 2022-01-16 21:15:00 95 mm[Hg] Univer sity of [facility] [place] [facility] Diastolic blood 2022-01-16 21:15:00 62 mm[Hg] Unive rsity of [facility] [place] [facility] Heart rate 2022-01-16 21:15:00 96 /min [facility] [place] [facility] Body temperature 2022-01-16 21:15:00 36.83 Torri [facility] [place] [facility] Body height 2022-01-16 21:15:00 152.4 cm [facility] [place] [facility] Body weight 2022-01-16 21:15:00 53.434 kg [facility] [place] [facility] BMI 2022-01-16 21:15:00 23.01 kg/m2 [facility] [place] [facility] Systolic blood 2021-12-15 19:10:00 102 mm[Hg] Univer [facility]ity of [facility] [place] [facility] Diastolic blood 2021-12-15 19:10:00 70 mm[Hg] Unive rsity of [facility] [place] [facility] Heart rate 2021-12-15 19:10:00 89 /min [facility] Body temperature 2021-12-15 19:10:00 36.83 Torri [facility] Body height 2021-12-15 19:10:00 152.4 cm [facility] Body weight 2021-12-15 19:10:00 52.799 kg [facility] BMI 2021-12-15 19:10:00 22.73 kg/m2 [facility] Systolic blood 2021-07-26 22:36:00 129 mm[Hg] Univer [facility]ity [facility] Diastolic blood 2021-07-26 22:36:00 82 mm[Hg] [facility] Heart rate 2021-07-26 22:36:00 80 /min [facility] Body temperature 2021-07-26 22:36:00 36.67 Torri [facility] Respiratory rate 2021-07-26 22:36:00 18 /min [facility] Body weight 2021-07-26 22:36:00 57.607 kg [facility] Oxygen saturation in 2021-07-26 22:36:00 99 /min [facility] Arterial blood by [facility] Pulse oximetry Branch Procedures Procedure Date / Time Performing Clinician Source Performed CBC WITH DIFF 2022-07-09 10:26:[address] [facility] [place] [facility] HB -MATERNAL 2022-07-09 10:24:00 [facility] HEM[facility]RHAGE SCREEN [facility] PREPARE PACKED RBC 2022-07-09 08:08:14 [facility]TI-D R/O PANEL 2022-07-09 02:24:00 NúñezNEA [facility] CBC WITH DIFF 2022-07-09 01:21:00 [facility] o [facility] [place] [facility] HEPATITIS B SURFACE 2022-07-09 01:21:00 NúñezRza [facility] ANTIGEN [facility] ADC OR MIKE ONLY - RPR 2022-07-09 01:21:00 WiltonRaz, [facility]2 AG-AB WITH REFLEX 2022-07-09 01:21:00 WiltonRaz, Un [facility] HB ABO GROUPING 2022-07-09 01:10:00 [facility] RHO (D) IMMUNE GLOBULIN 2022-07-09 01:10:[facility] ADC ONLY - FERN TEST 2022-07-09 00:43:00 [facility] PO[facility]INALYSIS W/O 2022-07-06 00:00:00 Shiloh Lopez [facility] POCT URINALYSIS W/O 2022-06-21 00:00:00 Shiloh Lopez [facility] >14 WEEKS US 2022-06-14 21:51:12 Yuni Valdovinos [facility] DSU PRE-OP 2022-06-14 06:01:00 Doctor Unassigned, [facility] POCT URINALYSIS W/O 2022-06-14 00:00:00 Yuni Valdovinos [facility] TDAP VACCINE, >11 YRS, IM 2022-05-22 16:35:04 Shiloh Lopez Un [facility] CBC WITH DIFF 2022-05-18 21:01:00 Shiloh Lopez [place] o f [facility] POCT URINALYSIS W/O 2022-05-16 00:00:00 Shiloh Lopez [facility] POCT URINALYSIS W/O 2022-04-03 00:00:00 Yuni Valdovinos [facility] POCT URINALYSIS W/O 2022-02-22 16:06:00 Yuni Valdovinos [facility] INSURANCE CORRESPONDENCE 2022-01-30 05:01:00 Doctor Unassigned, [facility] Name Medical [place] ASSIGNMENT OF BENEFITS 2022-01-16 20:52:41 Doctor Diaz [facility] Name Medical [place] POCT URINALYSIS W/O 2022-01-16 00:00:00 Yuni Valdovinos [facility] SPECIFIC GRAVITY Medical [place] <14 WEEKS US 2021-12-16 04:15:28 [facility] ANALOG IC DESIGN ENGINEER CLINIC ULTRASOUND 2021-12-15 05:01:00 Doctor Diaz [facility] Name Medical [place] POCT TEST 2021-12-15 00:00:00 Shiloh Lopez [facility] POCT URINALYSIS W/O 2021-12-15 00:00:00 Shiloh Lopez [facility] GRAVITY Medical [place] XR HAND 3+ VW RIGHT 2021-07-26 22:48:47 Rosario Shine [facility] NOTICE OF PRIVACY 2021-07-26 22:30:56 Doctor Diaz [facility] [place] Medical [place] CONSENT/REFUSAL FOR 2021-07-26 22:30:44 [facility] DIAGNOSIS AND TREATMENT [place] [facility] SCANNED LAB RESULTS 2018-10-31 05:01:00 [facility] Name Medical [place] Encounters Start End Encounter Admission Attending Care Care Encounter Source Date/Time Date/Time Type Type Clinicians Facility Department ID 2022-07-06 Outpatient P SHILOH LOPEZ [facility] [id number] [facility] 2022-07-10 Inpatient X TAO MARTINES [facility] OB Y [id number] Univers 18:27:00 14:05:00 [facility]-08 2022-07-10 [facility] [id number] Univers 18:27:00 14:05:00 Encounter Tao arteaga [id number] [address] 2022-07-06 2022-07-06 Outpatient R JESSICA SHILOH [facility] [id number] Univers 13:15:00 14:15:18 ity [facility] 2022-07-06 2022-07-06 [facility] [id number] Univers 13:15:00 14:15:18 Cam [place] [id number] ity of Visit [place] [id number] [place] [id number] Mn dical NAL [address] [place] [address] 2022-06-28 2022-06-28 Outpatient R BONIFACIO [facility] [id number] Univers 16:15:00 16:15:00 YUNI cornejo [facility] 2022-06-21 2022-06-21 Outpatient R JESSICA [facility]OR [facility] [id number] Univers 16:15:00 16:59:02 ity [facility] 2022-06-21 2022-06-21 Routine Jessica [facility] 1.2.208.630 [id number] Univers 16:15:00 16:59:02 Cam [place] 350.1.13.10 ity of [place] [id number] [address] 2022-06-14 2022-06-14 Outpatient R BONIFACIO [facility] [id number] Univers 15:30:00 15:53:43 YUNI cornejo [facility] 2022-06-14 2022-06-14 [facility] 1.2.102.615 [id number] Univers 15:30:00 15:53:43 Yuni [place] 350.1.13.10 ity of [place] [id number] [address] 2022-06-14 2022-06-14 Orders Doctor GUERRERO 1.2.840.114 [id number] Univers 00:00:00 00:00:00 Only Unassigned, PATY 350.1.13.10 ity of [facility] 4.2.7.2.686 Ismael as [id number] [address] 2022-06-08 2022-06-08 Outpatient R BONIFACIO [facility] [id number] Univers 09:30:00 09:30:00 YUNI clemente [facility] 2022-05-30 2022-05-30 Outpatient R BONIFACIO [facility] [id number] Univers 16:15:00 16:15:00 YUNI cornejo [facility] 2022-05-22 2022-05-22 Outpatient R BONIFACIO [facility] [id number] Univers 10:00:00 10:11:30 YUNI cornejo [facility] 2022-05-22 2022-05-22 Nurse Nurse, [facility] 1.2.840.114 [id number] Univers 10:00:00 10:11:30 Visit Yuni Valdovinos 350.1.13.10 ity of [place] [id number] Mn dical NAL 134 [facility] 2022-05-18 2022-05-18 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 2022-05-18 2022-05-18 Case Shiloh Lopez [facility] 1.2.172.519 [id number] Univers 00:00:00 00:00:00 Management Montez RAI 350.1.13.10 ity of [facility] [place] [id number] Mn dical NAL 134 [facility] 2022-05-16 2022-05-16 Outpatient R SHILOH LOPEZ [facility] [id number] Univers 15:30:00 16:38:33 ity [facility] 2022-05-16 2022-05-16 Routine Shiloh Lopez [facility] 1.2.743.422 [id number] Univers 15:30:00 16:38:33 Montez ARI 350.1.13.10 ity of [place] [id number] Mn dical [address] 2022-04-28 2022-04-28 Outpatient R MARCOS [facility] [id number] Univers 15:15:00 15:15:00 DEISI cornejo [facility] 2022-04-27 2022-04-27 Outpatient R BONIFACIO [facility] [id number] Univers 10:45:00 10:45:00 [facility] 2022-04-12 2022-04-12 Landscape Photographer [facility] 1.2 .840.114 [id number] Univers 13:00:00 13:30:00 Visit Art Merlos ANALOG IC DESIGN ENGINEER 350.1.13.10 ity of REGIONAL 4.2.7.2.686 Ismael as MATERNAL [id number] Med ical & CHILD [address] [place] [address] 2022-04-12 2022-04-12 Outpatient P ENEDINA [facility] [id number] Univers 13:00:00 13:00:00 [facility] 2022-[facility]-11 2022-04-11 Outpatient R SHILOH LOPEZ [facility] [id number] Univers 09:45:00 09:45:00 ity [facility] 2022-04-03 2022-04-03 Outpatient R BONIFACIO [facility] [id number] Univers 09:45:00 10:57:27 [facility] 2022-04-03 2022-04-03 Routine Shiloh Lopez [facility] 1.2.840.114 [id number] Univers 09:45:00 10:57:27 Yuni Valdovinos 350.1.13.10 ity of [place] [id number] [address] 2022-03-31 2022-03-31 Telephone Bonifacio [facility] 1.2.840.114 [id number] Univers 00:00:00 00:00:00 Yuni RAI 350.1.13.10 i ty of [facility] [place] [id number] [address] 2022-03-22 2022-03-22 Outpatient R SHILOH LOPEZ [facility] [id number] Univers 11:00:00 11:00:00 [facility] 2022-02-28 2022-02-28 Landscape Photographer Ultrasound, [facility] 1.2 .840.114 [id number] Univers 14:00:00 15:00:00 Visit Breann Bozena Padmini RAI 350.1 .13.10 ity of [facility] [place] [id number] [address] 2022-02-28 2022-02-28 Outpatient P BREANN [facility] [id number] Univers 14:00:00 14:00:00 PETER it y of PADMINI [facility]teaga [facility] 2022-02-22 2022-02-22 Outpatient R BONIFACIO [facility] [id number] Univers 10:45:00 11:33:16 YUNI cornejo [facility] 2022-02-22 2022-02-22 Routine Bonifacio [facility] 1.2.035.125 [id number] Univers 10:45:00 11:33:16 Yuni RAI 350.1.13.10 ity of [place] [id number] [address] 2022-02-15 2022-02-15 Outpatient R BONIFACIO [facility] [id number] Univers 13:30:00 13:30:00 YUNI cornejo [facility] 2022-02-07 2022-02-07 Outpatient R SHILOH LOPEZ [facility] [id number] Univers 15:45:00 15:45:[address] [facility] 2022-01-30 2022-01-30 Outpatient R BONIFACIO [facility] [id number] Univers 13:00:00 13:00:[address] [facility] 2022-01-30 2022-01-30 Orders Doctor CESAR 1.2.840.114 [id number] Univers 00:00:00 00:00:00 Only Unassigned, PATY 350.1.13.10 ity of [place] [facility] 4.2.7.2.686 Ismael as [id number] [address] 2022-01-27 2022-01-27 Case Shiloh Lopez [facility] 1.2.840.114 [id number] Univers 00:00:00 00:00:00 Management Montez CASTELLANOS 350.1.13.10 ity of [place] [id number] [address] 2022-01-27 2022-01-27 Telephone Bonifacio [facility] 1.2.840.114 [id number] Univers 00:00:00 00:00:00 Yuni RAI 350.1.13.10 i ty of [place] [id number] [address] 2022-01-27 2022-01-27 Rand Nina Junior [facility] 1.2.840.114 [id number] Univers 00:00:00 00:00:00 EMANUEL 350.1.13.10 it y [place] [id number] [address] 2022-01-25 2022-01-25 Telephone Shiloh Lopez [facility] 1.2.840.114 [id number] Univers 00:00:00 00:00:00 Montez RAI 350.1.13.10 i ty of [facility] [place] [id number] Mn dic[address] 2022-01-17 2022-01-17 Landscape Photographer 2, [facility] 1.2.840.114 [id number] Univers 09:45:00 10:00:00 Visit Shiloh Lopez 350.1.13.10 ity of [place] [id number] [facility] 353 [facility] 2022-01-17 2022-01-17 Outpatient R SHILOH LOPEZ [facility] [id number] Univers 09:45:00 09:45:[address] [facility] 2022-01-16 2022-01-16 [facility] [id number] Univers 16:00:00 16:56:05 YUNI ity [facility] 2022-01-16 2022-01-16 [facility] 1.2.713.576 [id number] Univers 16:00:00 16:56:05 Yuni RAI 350.1.13.10 ity of [place] [id number] [facility] 134 [facility] 2022-01-16 2022-01-16 Orders Doctor CESAR 1.2.840.114 [id number] Univers 00:00:00 00:00:00 Only Unassigned, PATY 350.1.13.10 ity of [place] [facility] 4.2.7.2.686 Ismael as [id number] [address] 2021-12-23 2021-12-23 Letter Shiloh Lopez [facility] 1.2.501.456 [id number] Univers 00:00:00 00:00:00 (Out) Montez RAI 350.1.13.10 i ty of [place] [id number] Mn dical NAL 134 [facility] 2021-12-22 2021-12-22 Outpatient R [facility] [id number] Univers 10:15:00 10:15:[address] [facility] 2021-12-22 2021-12-22 Telephone Shiloh Lopez [facility] 1.2.840.114 [id number] Univers 00:00:00 00:00:00 Montez RAI 350.1.13.10 i ty of [place] [id number] Mn dic[address] 2021-12-15 2021-12-15 Outpatient R SHILOH LOPEZ [facility] [id number] Univers 14:00:00 15:46:[address] [facility] 2021-12-15 2021-12-15 Initial Shiloh Lopez [facility] 1.2.865.933 [id number] Univers 14:00:00 15:46:46 Montez RAI 350.1.13.10 ity of [place] [id number] [address] 2021-12-15 2021-12-15 Orders Doctor CESAR 1.2.840.114 [id number] Univers 00:00:00 00:00:00 Only Unassigned, PATY 350.1.13.10 ity of [place] [facility] 4.2.7.2.686 Ismael as [id number] [facility] [address] [place] 2021-12-06 2021-12-06 Telephone Shiloh Lopez [facility] 1.2.840.114 [id number] Univers 00:00:00 00:00:00 Montez RAI 350.1.13.10 i ty of [place] [id number] [address] 2021-07-26 2021-07-26 Emergency X Timbo PARNELL [facility] ERT [id number] Univers 16:39:00 17:31:[address] [facility] 2021-07-26 2021-07-26 Emergency Timbo Parnell [facility] 1.2.840.114 [id number] Univers 16:39:00 17:31:00 Nneka RAI 350.1.13.10 i ty of [place] [id number] [facility] [address] [place] 2021-07-26 2021-07-26 Orders Doctor CESAR 1.2.840.114 [id number] Univers 00:00:00 00:00:00 Only Unassigned, PATY 350.1.13.10 ity of [place] [facility] 4.2.7.2.686 Ismael as [id number] [place] [address] [place] 2018-10-31 2018-10-31 Orders Doctor CESAR 1.2.840.114 [id number] Univers 00:00:00 00:00:00 Only Unassigned, PATY 350.1.13.10 ity of [place] [facility] 4.2.7.2.686 Ismael as [id number] [place] [address] [place] Results Test Description Test Time Test Comments Results Result Comments Source RHO (D) IMMUNE GLOBULIN 2022-07-10 01:08:11 Test Item Value Reference Range Interpretation Comme nts RHIG CANDIDATE? (test code = Yes- see comment A Patient is a candidate for RhIg- 5055) Patient is Rh N egative and baby is Rh Positive.Per formed at [facility] Laboratory Serv [facility] Blood [address] [place] [address]Toll Free: [phone] 266CLIA No. [id number] Lab Interpretation (test code Abnormal = 50979-9) [facility]I-D R/O [id number] 17:58:01 Test Item Value Reference Range Interpretation Comments ANTIBODY (test Anti-D Probable anti-D due to RhIg code = 683) RhIg given on 27-67-06Ylejzhy ed at [facility] Laborat ory Services [facility] Blood [address] [place] [address]Naiy Free: [phone] A No. [id number] [facility] HEMO [id number] 12:47:56 Test Item Value Reference Range Interpretation Comments SCREEN (test Negative Performed at [facility] code = 846) Laboratory Serv [facility] Blood Bank1 [address] [place] [id number] Free: [phone] A No. [id number] RHIG REQUIRED? (test 1 Syringe Patient is a candidate code = 1747) for RhIg- Patie nt is Rh Negative and ba by is Rh Positive.Perfor med at [facility] Laboratory Services - [facility] Blood Ban [address] [place] [id number] Free: [phone] A No. [id number] [facility] CampusType and Screen - ONCE [id number] 02:14:38 Test Item Value Reference Range Interpretation Comments ABO & RH (test code A Negative Performe d at [facility] = 20) Laboratory Serv [facility] Blood Bank1 [address] [place], [place] [address]Toll Free: [phone] A No. [id number] IAT (test code = Positive Performed a t [facility] 1185) Laboratory Serv [facility] Blood Bank[address] [place], [place] [address]Toll Free: [phone] A No. [id number] [facility] CampusPOCT URINALYSIS W/O SPECIFIC [id number] 19:43:00 Test Item Value Reference Range Interpretation Comments POCT PH U (test code = 3254) 7 mg/dl 5-8 POCT U LEUK EST (test code = trace Negative - Negative 3263) POCT U NIT (test code = 3262) negative Negative - Negative POCT U PROT (test code = 3259) trace Negative - Negative POCT U GLU (test code = 3256) negative Negative - Negative POCT U KETONE (test code = 3258) trace Negative - Negative POCT U BLD (test code = 3257) negative Negative - Negative [facility]PO[facility] URINALYSIS W/O SPECIFIC [id number] 22:10:00 Test Item Value Reference Range Interpretation Comments POCT PH U (test code = 3254) n/a 5-8 POCT U LEUK EST (test code = n/a Negative - Negative 3263) POCT U NIT (test code = 3262) n/a Negative - Negative POCT U PROT (test code = 3259) negative Negative - Negative POCT U GLU (test code = 3256) negative Negative - Negative POCT U KETONE (test code = 3258) n/a Negative - Negative POCT U BLD (test code = 3257) n/a Negative - Negative [facility]PO[facility] URINALYSIS W/O SPECIFIC [id number] 21:31:00 Test Item Value Reference Range Interpretation Comments POCT PH U (test code = 3254) n/a 5-8 POCT U LEUK EST (test code = n/a Negative - Negative 3263) POCT U NIT (test code = 3262) n/a Negative - Negative POCT U PROT (test code = 3259) negative Negative - Negative POCT U GLU (test code = 3256) negative Negative - Negative POCT U KETONE (test code = 3258) n/a Negative - Negative POCT U BLD (test code = 3257) n/a Negative - Negative [facility] WITH [id number] 21:14:03 Test Item Value Reference Range Interpretation Comments WBC (test code = See_Comment [Automated 6690-2) message] The sy stem which generated this result transmitted reference range : 4.30 - 11.10 10*3/?L. The reference range was not used to interpret this result as normal/abnormal . RBC (test code = See_Comment L [Automated 789-8) message] The sy stem which generated this result transmitted reference range : 3.93 - 5.25 10*6/?L. The reference range was not used to interpret this result as normal/abnormal . HGB (test code = 9.6 g/dL 11.6-15.0 L 718-7) HCT (test code = 28.6 % 35.7-45.2 L 4544-3) MCV (test code = 88.8 fL 80.6-95.5 787-2) MCH (test code = 29.8 pg 25.9-32.8 785-6) MCHC (test code = 33.6 g/dL 31.6-35.1 786-4) RDW-SD (test code = 40.4 fL 39.0-49.9 90080-1) RDW-CV (test code = 12.5 % 12.0-15.5 788-0) PLT (test code = See_Comment [Automated 777-3) message] The sy stem which generated this result transmitted reference range : 166 - 358 10*3/ ?L. The reference r victorina was not used to interpret this result as normal/abnormal . MPV (test code = 8.8 fL 9.5-12.9 L 47255-4) NRBC/100 WBC (test See_Comment [Automat ed code = [id number]) message] The system which generated this result transmitted reference range : 0.0 - 10.0 /100 WBCs. The refer ence range was not u sed to interpret th is result as normal/abnormal . NRBC x10^3 (test code See_Comment [Auto mated = [id number]) message] The s ystem which generated this result transmitted reference range : 10*3/?L. The reference range was not used to interpret this result as normal/abnormal . GRAN MAT (NEUT) % 79.1 % (test code = 770-8) IMM GRAN % (test code 0.40 % = 2722638191) LYMPH % (test code = 13.1 % 736-9) MONO % (test code = 5.1 % 5905-5) EOS % (test code = 2.2 % 713-8) BASO % (test code = 0.1 % 706-2) GRAN MAT x10^3(ANC) 5.87 10*3/uL 1.88-7.09 (test code = 0343727387) IMM GRAN x10^3 (test 0.03 10*3/uL 0.00-0.06 code = 2533965584) LYMPH x10^3 (test code 0.97 10*3/uL 1.32-3.29 L = 731-0) MONO x10^3 (test code 0.38 10*3/uL 0.33-0.92 = 742-7) EOS x10^3 (test code = 0.16 10*3/uL 0.03-0.39 711-2) BASO x10^3 (test code 0.01-0.07 = 704-7) Lab Interpretation Abnormal (test code = 71629-4) [facility] URINALYSIS W/O SPECIFIC [id number] 21:46:00 Test Item Value Reference Range Interpretation Comments POCT PH U (test code = 3254) n/a 5-8 POCT U LEUK EST (test code = n/a Negative - Negative 3263) POCT U NIT (test code = 3262) n/a Negative - Negative POCT U PROT (test code = 3259) Negative Negative - Negative POCT U GLU (test code = 3256) Normal Negative - Negative POCT U KETONE (test code = 3258) n/a Negative - Negative POCT U BLD (test code = 3257) n/a Negative - Negative [facility] URINALYSIS W/O SPECIFIC [id number] 21:46:00 Test Item Value Reference Range Interpretation Comments POCT PH U (test code = 3254) n/a 5-8 POCT U LEUK EST (test code = n/a Negative - Negative 3263) POCT U NIT (test code = 3262) n/a Negative - Negative POCT U PROT (test code = 3259) Negative Negative - Negative POCT U GLU (test code = 3256) Normal Negative - Negative POCT U KETONE (test code = 3258) n/a Negative - Negative POCT U BLD (test code = 3257) n/a Negative - Negative [facility] URINALYSIS W/O SPECIFIC [id number] 15:18:00 Test Item Value Reference Range Interpretation Comments POCT PH U (test code = 3254) 7 mg/dl 5-8 POCT U LEUK EST (test code = Negative Negative - Negative 3263) POCT U NIT (test code = 3262) Negative Negative - Negative POCT U PROT (test code = 3259) Negative Negative - Negative POCT U GLU (test code = 3256) Normal Negative - Negative POCT U KETONE (test code = 3258) ++ mod Negative - Negative POCT U BLD (test code = 3257) Negative Negative - Negative [facility] URINALYSIS W/O SPECIFIC [id number] 16:07:00 Test Item Value Reference Range Interpretation Comments POCT PH U (test code = 3254) N/A 5-8 POCT U LEUK EST (test code = N/A\ Negative - Negative 3263) POCT U NIT (test code = 3262) N/A Negative - Negative POCT U PROT (test code = 3259) NEGATIVE Negative - Negative POCT U GLU (test code = 3256) NEGATIVE Negative - Negative POCT U KETONE (test code = 3258) N/A Negative - Negative POCT U BLD (test code = 3257) N/A Negative - Negative [facility] URINALYSIS W/O SPECIFIC [id number] 21:14:00 Test Item Value Reference Range Interpretation Comments POCT PH U (test code = 3254) n/a 5-8 POCT U LEUK EST (test code = n/a Negative - Negative 3263) POCT U NIT (test code = 3262) n/a Negative - Negative POCT U PROT (test code = 3259) Negative Negative - Negative POCT U GLU (test code = 3256) Normal Negative - Negative POCT U KETONE (test code = 3258) n/a Negative - Negative POCT U BLD (test code = 3257) n/a Negative - Negative [facility] [id number] 19:12:00 Test Item Value Reference Range Interpretation Comments POCT PREG (test code = 1605) Positive On board controls acceptable with C Yes Line (test code = 3574) POCT PREG LOT # (test code = 3575) POCT PREG TEST DATE (test code = 3576) [facility] W/O SPECIFIC [id number] 19:11:00 Test Item Value Reference Range Interpretation Comments POCT PH U (test code = 3254) 7 mg/dl 5-8 POCT U LEUK EST (test code = Negtive Negative - Negative 3) POCT U NIT (test code = 3262) Negative Negative - Negative POCT U PROT (test code = 3259) Negative Negative - Negative POCT U GLU (test code = 3256) Normal Negative - Negative POCT U KETONE (test code = +++ large Negative - Negative 8) POCT U BLD (test code = 3257) Negative Negative - Negative [facility]
[2022-07-19] MEDS ORDERED: LORazepam 2 MG/ML VIAL ONE ×5 (00:56→09:10)
[2022-07-19] MEDS ORDERED: ONDANSETRON 4 MG/2 ML VIAL ONE ×2 (00:57→09:11)
[2022-07-19] MEDS ORDERED: MORPHINE 4 MG/ML SYR ONE (00:57)
[2022-07-19 01:31] LABS: Absolute Lymphocytes (CBC) 2.1 K/uL (0.7-4.9); Hematocrit 39.4 % (36.0-45.0); Lymphocytes % 27.8 % (15.3-44.8); MCV 82.6 fL (80-100); MPV 6.5 fL (7.6-11.3); RBC Red Blood Cell Count 4.77 M/uL (3.86-4.86)
[2022-07-19 01:41] LABS: Albumin 3.2 g/dL (3.4-5.0); Bilirubin Total 0.2 mg/dL (0.2-1.0); Protein, Total 7.4 g/dL (6.4-8.2); Troponin High Sensitivity 3.4 pg/mL (<58.9)
--- NOTE | 2022-07-19 02:43 | ER ---
Nurse's Notes [facility] Name: Severiano Quevedo Age: 22 yrs Sex: Female : 2000 Arrival Date: 07/19/2022 Time: 00:35 Bed 7 Private MD: Diagnosis: Other pulmonary embolism without acute cor pulmonale Presentation: 07/19 00:50 Chief complaint: Patient states: "I started having chest pain and feeling short of vc1 breath when I take a deep breath in it feels like a sharp pain stabbing me.". Coronavirus screen: Vaccine status: Patient reports being unvaccinated. Ebola Screen: No symptoms or risks identified at this time. Initial Sepsis Screen: Does the patient meet any 2 criteria? No. Patient's initial sepsis screen is negative. Does the patient have a suspected source of infection? No. Patient's initial sepsis screen is negative. Risk Assessment: Do you want to hurt yourself or someone else? Patient reports no desire to harm self or others. Onset of symptoms was July 19, 2022 at 00:50. 00:50 Method Of Arrival: Wheelchair vc1 00:50 Acuity: SIMON 3 vc1 Triage Assessment: 00:53 General: Appears distressed, uncomfortable, Behavior is crying. Pain: Complains of pain vc1 in anterior aspect of left upper chest Pain radiates to left clavicle Pain currently is 10 out of 10 on a pain scale. Quality of pain is described as stabbing, Noted to be crying, grimacing, restless. EENT: No deficits noted. No signs and/or symptoms were reported regarding the EENT system. Neuro: Level of Consciousness is awake, alert, obeys commands, Oriented to person, place, time, situation, Appropriate for age. Cardiovascular: No deficits noted. Respiratory: Reports shortness of breath Airway is patent Respiratory effort is even, unlabored, Respiratory pattern is symmetrical, tachypnea Onset: The symptoms/episode began/occurred gradually, the patient has mild shortness of breath. GI: No deficits noted. No signs and/or symptoms were reported involving the gastrointestinal system. : No deficits noted. No signs and/or symptoms were reported regarding the genitourinary system. Derm: No deficits noted. No signs and/or symptoms reported regarding the dermatologic system. Musculoskeletal: No deficits noted. No signs and/or symptoms reported regarding the musculoskeletal system. 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 - Social history:: Smoking status: Reported history of juuling and/or vaping. - Family history:: not pertinent. Screenin:02 [facility] ED Fall Risk Assessment (Adult) Score/Fall Risk Level 0 - 2 = Low Risk. Abuse as6 screen: Denies threats or abuse. Denies injuries from another. Nutritional screening: No deficits noted. Tuberculosis screening: No symptoms or risk factors identified. Assessment: 00:55 Reassessment: pt very anxious states "I don't want to " unable to lie back. bb 01:12 Reassessment: accompanied pt to CT scan via stretcher on monitor pt states she feels a bb little better. Vital Signs: 00:50 BP 103 / 80; Pulse 96; Resp 25; Pulse Ox 99% on R/A; Weight 58.97 kg; Height 5 ft. 1 vc1 in. (154.94 cm); Pain 10/10; 02:02 BP 117 / 73; Pulse 105; Resp 21 S; Pulse Ox 98% on R/A; as6 02:08 Temp 98.9; wm 02:27 BP 128 / 94; Pulse 97; Resp 21 S; Pulse Ox 98% on R/A; as6 00:50 Body Mass Index 24.56 (58.97 kg, 154.94 cm) vc1 ED Course: 00:35 Patient arrived in ED. ja2 00:42 Pierre Jeong, ARELY is Primary Nurse. as6 00:43 Stefan Malave MD is Attending Physician. rt 00:52 Triage completed. vc1 00:54 Arm band placed on right wrist. vc1 00:55 Initial lab(s) drawn, by me, sent to lab. Inserted saline lock: 20 gauge in left bb antecubital area, using aseptic technique. Blood collected. 01:24 Chest For Pe Angio In Process Unspecified. EDMS 01:42 EKG done, by ED staff, reviewed by Stefan Malave MD. wm 02:02 Placed in gown. Bed in low position. Call light in reach. Side rails up X2. as6 02:42 Lyle Cartwright MD is Hospitalizing Provider. rt 03:03 SARS RAPID Sent. wm 03:03 COVID swab sent to lab. wm 03:41 No provider procedures requiring assistance completed. Patient admitted, IV remains in as6 place. 07:12 Primary Nurse role handed off by Pierre Jeong RN bd Administered Medications: 01:05 Drug: Zofran (Ondansetron) 4 mg Route: IVP; Site: left antecubital; bb 06:14 Follow up: Response: No adverse reaction as6 01:07 Drug: morphine 4 mg Route: IVP; Infused Over: 4 mins; Site: left antecubital; bb 06:14 Follow up: Response: No adverse reaction as6 01:12 Drug: Ativan (LORazepam) 1 mg Route: IVP; Site: left antecubital; bb 06:14 Follow up: Response: No adverse reaction as6 02:43 CANCELLED (dose changee): vancoMYCIN 15 mg/kg IVPB once; once over 2 hrs; not to exceed rt 2 grams; (mix in 250 to 500 mL NS) 03:18 Drug: Lovenox (enoxaparin) 1 mg/kg Route: Sub-Q; Site: right lower abdomen; as6 06:13 Follow up: Response: No adverse reaction as6 03:19 Drug: Ativan (LORazepam) 0.5 mg Route: IVP; Site: left antecubital; as6 06:13 Follow up: Response: No adverse reaction as6 04:30 Drug: vancoMYCIN 1 grams Route: IVPB; Infused Over: 2 hrs; Site: right forearm; as6 06:13 Follow up: Response: No adverse reaction; IV Status: Completed infusion; IV Intake: as6 250ml 04:31 Drug: Cefepime 2 grams Route: IVPB; Rate: 200 ml/hr; Infused Over: 30 mins; Site: left as6 antecubital; 06:14 Follow up: Response: No adverse reaction; IV Status: Completed infusion; IV Intake: as6 100ml Medication: 00:55 VIS not applicable for this client. vc1 Intake: 06:13 IV: 250ml; Total: 250ml. as6 06:14 IV: 100ml; Total: 350ml. as6 Outcome: 02:42 Decision to Hospitalize by Provider. rt 03:41 Admitted to ER Hold. Please see [facility] for further documentation. as6 03:41 Condition: stable 03:41 Instructed on the need for admit. 17:03 Patient left the ED. vg1 Signatures: Dispatcher [employer] EDMS Yuliana Garcia Brenda, RN RN Lila Chavez, RN RN vg1 Antionette Bojorquez Jessica ja2 Slawson, Ashby, RN RN as6 Gemma Whitmore RN RN vc1 Stefan Malave MD MD rt
--- NOTE | 2022-07-19 02:43 | EDPHYS ---
Physician Documentation [facility] Name: Severiano Quevedo Age: 22 yrs Sex: Female : 2000 Arrival Date: 07/19/2022 Time: 00:35 Bed 7 Private MD: ED Physician Stefan Malave HPI: 07/19 02:27 This 22 yrs old Female presents to ER via Wheelchair with complaints of Post rt Problem, Breathing Difficulty. 02:27 The patient has shortness of breath at rest. Onset: The symptoms/episode began/occurred rt this morning. Duration: The symptoms are continuous. The patient's shortness of breath is aggravated by deep breaths, is alleviated by nothing. Associated signs and symptoms: Pertinent positives: chest pain. Severity of symptoms: At their worst the symptoms were severe. Patient who is 1 week presents to the ED with subacute onset of a right-sided chest pain, nonradiating. It is worse with taking a deep breath. She reports a shortness of breath. Denies other acute complaints at this time. Symptoms are severe in severity, no other aggravating or alleviating factors. Pain is sharp in nature.. 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 - Social history:: Smoking status: Reported history of juuling and/or vaping. - Family history:: not pertinent. ROS: 02:27 Constitutional: Negative for fever, chills, and weight loss, Eyes: Negative for injury, rt pain, redness, and discharge, ENT: Negative for injury, pain, and discharge, Neck: Negative for injury, pain, and swelling, Abdomen/GI: Negative for abdominal pain, nausea, vomiting, diarrhea, and constipation, Skin: Negative for injury, rash, and discoloration, Neuro: Negative for headache, weakness, numbness, tingling, and seizure, Psych: Negative for depression, anxiety, suicide ideation, homicidal ideation, and hallucinations. 02:27 Cardiovascular: Positive for chest pain, Negative for edema. 02:27 Respiratory: Positive for shortness of breath, Negative for cough. Exam: 02:29 Head/Face: Normocephalic, atraumatic. Eyes: Pupils equal round and reactive to light, rt extra-ocular motions intact. Lids and lashes normal. Conjunctiva and sclera are non-icteric and not injected. Cornea within normal limits. Periorbital areas with no swelling, redness, or edema. ENT: Nares patent. No nasal discharge, no septal abnormalities noted. Tympanic membranes are normal and external auditory canals are clear. Oropharynx with no redness, swelling, or masses, exudates, or evidence of obstruction, uvula midline. Mucous membranes moist. Chest/axilla: Normal chest wall appearance and motion. Nontender with no deformity. No lesions are appreciated. Cardiovascular: Regular rate and rhythm with a normal S1 and S2. No gallops, murmurs, or rubs. Normal PMI, no JVD. No pulse deficits. Respiratory: Lungs have equal breath sounds bilaterally, clear to auscultation and percussion. No rales, rhonchi or wheezes noted. No increased work of breathing, no retractions or nasal flaring. Abdomen/GI: Soft, non-tender, with normal bowel sounds. No distension or tympany. No guarding or rebound. No evidence of tenderness throughout. Skin: Warm, dry with normal turgor. Normal color with no rashes, no lesions, and no evidence of cellulitis. MS/ Extremity: Pulses equal, no cyanosis. Neurovascular intact. Full, normal range of motion. Neuro: Awake and alert, GCS 15, oriented to person, place, time, and situation. Cranial nerves II-XII grossly intact. Motor strength 5/5 in all extremities. Sensory grossly intact. Cerebellar exam normal. Normal gait. Psych: Awake, alert, with orientation to person, place and time. Behavior, mood, and affect are within normal limits. 02:29 Constitutional: The patient appears alert, in obvious distress. 02:29 ECG was reviewed by the Attending Physician. rt Vital Signs: 00:50 BP 103 / 80; Pulse 96; Resp 25; Pulse Ox 99% on R/A; Weight 58.97 kg; Height 5 ft. 1 vc1 in. (154.94 cm); Pain 10/10; 02:02 BP 117 / 73; Pulse 105; Resp 21 S; Pulse Ox 98% on R/A; as6 02:08 Temp 98.9; wm 02:27 BP 128 / 94; Pulse 97; Resp 21 S; Pulse Ox 98% on R/A; as6 00:50 Body Mass Index 24.56 (58.97 kg, 154.94 cm) vc1 MDM: 00:43 Patient medically screened. rt 02:30 Differential diagnosis: pneumonia, Pneumothorax pulmonary edema, Pulmonary Embolism rt cardiomyopathy. Data reviewed: vital signs, nurses notes, lab test result(s), EKG, radiologic studies. Management of patient was discussed with the following: Hospitalist: . I considered the following discharge prescriptions or medication management in the emergency department Medications were administered in the Emergency Department. See MAR. Independent interpretation of the following test(s) in the Emergency Department EKG: See my EKG interpretation above. Discussion of test interpretation with radiology: I had a discussion with radiology regarding a test interpretation. PE and poss septic emboli. Historians other than the Patient: Parent: . Response to treatment: the patient's symptoms have markedly improved after treatment. 07/19 00:51 Order name: CMP; Complete Time: 01:43 rt 07/19 00:51 Order name: CBC with Diff; Complete Time: 01:43 rt 07/19 00:51 Order name: Troponin High Sensitivity; Complete Time: 01:43 rt 07/19 00:51 Order name: BNP; Complete Time: 01:43 rt 07/19 02:07 Order name: Blood Culture Adult (2) rt 07/19 02:29 Order name: SARS RAPID; Complete Time: 03:46 rt 07/19 01:24 Order name: Chest For Pe Angio EDMS 07/19 10:48 Order name: Procalcitonin EDMS 07/19 00:51 Order name: EKG; Complete Time: 00:52 rt 07/19 00:51 Order name: EKG - Nurse/Tech; Complete Time: 01:41 rt EC:29 Rate is 82 beats/min. Rhythm is regular, Normal Sinus Rhythm with No ectopy. QRS Tok rt is Normal. MT interval is normal. QRS interval is normal. QT interval is normal. No Q waves. T waves are Normal. No ST changes noted. Interpreted by me. Administered Medications: 01:05 Drug: Zofran (Ondansetron) 4 mg Route: IVP; Site: left antecubital; bb 06:14 Follow up: Response: No adverse reaction as6 01:07 Drug: morphine 4 mg Route: IVP; Infused Over: 4 mins; Site: left antecubital; bb 06:14 Follow up: Response: No adverse reaction as6 01:12 Drug: Ativan (LORazepam) 1 mg Route: IVP; Site: left antecubital; bb 06:14 Follow up: Response: No adverse reaction as6 02:43 CANCELLED (dose changee): vancoMYCIN 15 mg/kg IVPB once; once over 2 hrs; not to exceed rt 2 grams; (mix in 250 to 500 mL NS) 03:18 Drug: Lovenox (enoxaparin) 1 mg/kg Route: Sub-Q; Site: right lower abdomen; as6 06:13 Follow up: Response: No adverse reaction as6 03:19 Drug: Ativan (LORazepam) 0.5 mg Route: IVP; Site: left antecubital; as6 06:13 Follow up: Response: No adverse reaction as6 04:30 Drug: vancoMYCIN 1 grams Route: IVPB; Infused Over: 2 hrs; Site: right forearm; as6 06:13 Follow up: Response: No adverse reaction; IV Status: Completed infusion; IV Intake: as6 250ml 04:31 Drug: Cefepime 2 grams Route: IVPB; Rate: 200 ml/hr; Infused Over: 30 mins; Site: left as6 antecubital; 06:14 Follow up: Response: No adverse reaction; IV Status: Completed infusion; IV Intake: as6 100ml Disposition: 03:16 Critical Care:. rt Disposition Summary: 07/19/22 02:42 Hospitalization Ordered Hospitalization Status: Inpatient Admission rt Provider: Lyle Cartwright rt Condition: Stable rt Problem: new rt Symptoms: have improved rt Bed/Room Type: Standard rt Location: [facility] ER HOLD(07/19/22 03:58) cg Room Assignment: ERHOLD-(07/19/22 03:58) cg Diagnosis - Other pulmonary embolism without acute cor pulmonale rt Forms: - Medication Reconciliation Form rt - SBAR form rt Critical care time excluding procedures: 03:16 Critical care time: Bedside Care: 30 minutes, Consultation: 5 minutes. Total time: 35 rt minutes Signatures: Dispatcher [employer] EDMS Bernadine Felix RN RN bb Garcia, Cindy RN RN cg Pierre Jeong, ARELY RN as6 Gemma Whitmore RN RN vc1 Laura Diaz PA-C PA-C sb4 Stefan Malave MD MD rt Corrections: (The following items were deleted from the chart) 01:08 00:52 Chest Single View+RAD.RAD.BRZ ordered. EDMS EDMS 01:24 00:52 Chest Angio+CT.RAD.BRZ ordered. EDMS EDMS 02:43 02:09 vancoMYCIN 15 mg/kg IVPB once; once over 2 hrs; not to exceed 2 grams; (mix in rt 250 to 500 mL NS) ordered. rt 03:58 02:42 Telemetry/MedSurg (Inpatient) rt cg 03:58 02:42 rt cg
--- NOTE | 2022-07-19 02:53 | P.HP ---
Certification for Inpatient Patient admitted to: Inpatient With expected LOS: <2 Midnights Patient will require the following post-hospital care: None Practitioner: I am a practitioner with admitting privileges, knowledge of patient current condition, hospital course, and medical plan of care. Services: Services provided to patient in accordance with Admission requirements found in Title 42 Section 412.3 of the Code of Federal Regulations Patient History Date of Service: 07/19/22 Reason for admission: Acute PE History of Present Illness: Patient is a 22 year old female 10 days vaginal delivery without complications who presented to the emergency department with complaints of shortness of breath and rib pain. Patient states that she has been experiencing these symptoms for about 24 hours now, but thought it was just gas. CTA showed small acute PE and two,adjacent, small, airspace, right posterior bibasilar lung opacities. EKG showed NSR. Labs WNL. Vitals remarkable for tachycardia and mild tachypnea. Saturating appropriately on room air. Patient denies any personal or family history of blood clots. She was given therapeutic lovenox, vancomycin, cefepime, ativan, and morphine in the ED. She will be admitted for further management. Allergies No Known Allergies Allergy (Unverified 03/28/12 02:04) Home medications list reviewed: Yes Home Medications: Amoxicillin/Potassium Clav [Amox-Clav 875-125 mg Tablet] 1 tab PO BID 03/31/16 Ferrous Fumarate/Folic Acid [Hemocyte-F Tablet] 1 tab PO DAILY 03/31/16 Pnv73/Iron,Gluc/Folic/Dss/Dha [Citranatal Assure Combo Pack] 1 tab PO DAILY 03/31/16 Codeine/APAP [Tylenol W/Codeine #3 tab] 1 tab PO Q6HP PRN #24 tab 04/01/16 Ibuprofen [Motrin] 800 mg PO Q8H PRN #45 tablet 04/01/16 Sertraline HCl [Zoloft] 50 mg PO DAILY #20 ml 04/01/16 - Past Medical/Surgical History Diabetic: No -: Anxiety Past Surgical History: Patient denies surgical history Psychosocial/ Personal History: Patient lives at home with her boyfriend. She has 3 children. - Family History Family History: Reviewed- Non-Contributory - Social History Smoking Status: Current some day smoker (vapes) Alcohol use: No CD- Drugs: No Caffeine use: No Place of Residence: Home Review of Systems Respiratory: Shortness of Breath Cardiovascular: Chest Pain Physical Examination - Vital Signs Temperature: 98.9 F Blood Pressure: 128/94 Pulse: 97 Respirations: 21 Pulse Ox (%): 98 (room air) - Physical Exam General: Alert, Oriented x3, Other (anxious,tearful) HEENT: Atraumatic, PERRLA Neck: Supple, 2+ carotid pulse no bruit Respiratory: Clear to auscultation bilaterally, Normal air movement Cardiovascular: Regular rate/rhythm, Normal S1 S2 Gastrointestinal: Normal bowel sounds, No tenderness Musculoskeletal: No tenderness Integumentary: No rashes Neurological: Normal speech, Sensation intact - Studies Laboratory Data (last 24 hrs) 07/19/22 00:55: WBC 7.60, Hgb 12.8, Hct 39.4, Plt Count 311 07/19/22 00:55: Sodium 144, Potassium 4.0, BUN 14, Creatinine 0.74, Glucose 102, Total Bilirubin 0.2, AST 14 L, ALT 27, Alkaline Phosphatase 122 H Assessment and Plan - Problems (Diagnosis) (1) pulmonary embolism Current Visit: No Status: Acute (2) Generalized anxiety disorder Current Visit: No Status: Chronic - Plan Patient is admitted for further management of acute pulmonary embolism. Continue therapeutic lovenox. Echo ordered to rule out cardiomyopathy. Continue broadspectrum anitbiotics as septic emboli and/or infectious consolidation are possible. Blood cultures obtained. Monitor on telemetry & pulse oximetry. Supplemental O2 if needed. Patient is very anxious about being away from her . Tearful during exam. Ativan ordered PRN. Monitor and replete electrolytes per protocol. Reconcile and continue home medications. Discharge Plan: Home Plan to discharge in: 48 Hours - Advance Directives Does patient have a Living Will: No Does patient have a Durable POA for Healthcare: No - Code Status/Comfort Care Code Status Assessed: Yes Code Status: Full Code Physician Review: Patient Assessed, Agree with Above Assessment and Plan Critical Care: No Time Spent Managing Pts Care (In Minutes): 50
[2022-07-19] MEDS ORDERED: CEFEPIME 2 GM VIAL ONE (03:07)
[2022-07-19] MEDS ORDERED: NA CHLORIDE 0.9% 100 ML IV ONE ×2 (03:09→07:56)
[2022-07-19] MEDS ORDERED: VANCOMYCIN 1 GM/VIAL ONE (03:09)
[2022-07-19] MEDS ORDERED: NA CHLORIDE 0.9% 250 ML ONE (03:09)
[2022-07-19] MEDS ORDERED: ENOXAPARIN 60 MG/0.6 ML SQ ONE (03:10)
[2022-07-19] MEDS ORDERED: ALBUTEROL 2.5 MG/3 ML NEB SOL NEB PRN ×2 (03:20→14:00)
[2022-07-19] MEDS ORDERED: ONDANSETRON 4 MG/2 ML VIAL IV PRN (03:20)
[2022-07-19] MEDS ORDERED: VANCOMYCIN 1 GM in NA CHLORIDE 0.9% 250 ML IVPB SCH ×3 (03:20→16:00)
[2022-07-19 03:44] VITALS: BMI 24.5
[2022-07-19 03:44] LABS: SARS-CoV-2 Antigen Rapid Res Negative (Negative)
[2022-07-19] MEDS ORDERED: MORPHINE 2 MG/ML SYR ONE ×2 (03:58→09:11)
[2022-07-19] MEDS: MORPHINE 2 MG/ML SYR IV PRN ×2 (04:00→09:25)
[2022-07-19] MEDS ORDERED: VANCOMYCIN 500 MG in NA CHLORIDE 0.9% 100 ML IVPB ONE (04:00)
[2022-07-19] MEDS ORDERED: VANCOMYCIN 500 MG/VIAL ONE (04:20)
[2022-07-19] MEDS: LORazepam 2 MG/ML VIAL IV PRN ×3 (06:25→10:55)
[2022-07-19] MEDS ORDERED: CEFEPIME 1 GM/VIAL ONE (07:56)
[2022-07-19] MEDS ORDERED: INFLUENZA VACCINE (for 6+ mo) 0.5 ML DOSE IMVAC ONE (08:00)
[2022-07-19 08:37] VITALS: TEMP 97.6
[2022-07-19] MEDS ORDERED: CEFEPIME 1 GM in NA CHLORIDE 0.9% 100 ML IV SCH (09:00)
[2022-07-19 09:04] VITALS: O2SAT 97
[2022-07-19] MEDS ORDERED: HYDROCORTISONE SUC 100 MG INJ IV ONE (13:29)
[2022-07-19 13:57] VITALS: BP 136/84
--- NOTE | 2022-07-19 14:53 | EKG ---
Test Date: 2022-07-19 Test Time: 01:36:10 [employer] Sales Executive: MEASUREMENT RESULTS: Intervals: Rate: 82 GA: 136 QRSD: 62 QT: 348 QTc: 406 [place]: P: 63 GA: 136 QRS: 83 T: 60 INTERPRETIVE STATEMENTS: Normal sinus rhythm Normal ECG Compared to ECG 01/24/2020 19:04:36 Sinus arrhythmia no longer present Electronically Signed On 07-19-22 14:51:37 DIABETES EDUCATION COORDINATOR by James Arenas
--- NOTE | 2022-07-19 15:09 | RAD REPORT ---
EXAM DESCRIPTION: ADDENDUM #1 ADDENDUM: Dr. Stefan Malave is notified of findings on 07/19/2022 at 2:54 AM ET. Electronically signed by: Ori Olea MD 07/19/2022 1:56 AM PRIVATE DUTY NURSE End of Addendum EXAM: Chest For Pe Angio CTA Chest With Contrast 07/19/2022 at 1: 20 AM CLINICAL HISTORY: Chest pain COMPARISON: None. TECHNIQUE: Chest CTA axial images acquired with IV contrast. Coronal and sagittal CTA MIPs and MPRs created. Exam performed according to departmental dose-optimization program which includes automated exposure control, adjustment of mA and/or kV according to patient size, and/or use of iterative recon struction technique. FINDINGS: Heart size normal. No pericardial effusion. Thoracic aorta unremarkable without evidence of dissection, aneurysm, or atherosclerotic plaque. Small right basilar acute pulmonary embolism. Central tracheobronchial tree unremarkable. Two, adjacent, small, airspace, right posterior basilar lung opacities. No pleural effusion or pneumothorax. Bones unremarkable. IMPRESSION: 1. Small acute pulmonary embolism. 2. Two, adjacent, small, airspace, right posterior basilar lung opacities. Causes include pulmonary infarct, septic emboli, and infectious consolidation. Electronically signed by: Ori Olea MD 07/19/2022 1:50 AM PRIVATE DUTY NURSE ADDENDUM #1 ADDENDUM: Dr. Stefan Malave is notified of findings on 07/19/2022 at 2:54 AM ET. Electronically signed by: Ori Olea MD 07/19/2022 1:56 AM PRIVATE DUTY NURSE End of Addendum ADDENDUM #1 ADDENDUM: Dr. Stefan Malave is notified of findings on 07/19/2022 at 2:54 AM ET. Electronically signed by: Ori Olea MD 07/19/2022 1:56 AM PRIVATE DUTY NURSE End of Addendum EXAM DESCRIPTION: Chest For Pe Angio CTA Chest With Contrast 07/19/2022 at 1: 20 AM CLINICAL HISTORY: Chest pain COMPARISON: None. TECHNIQUE: Chest CTA axial images acquired with IV contrast. Coronal and sagittal CTA MIPs and MPRs created. Exam performed according to departmental dose-optimization program which includes automated exposure control, adjustment of mA and/or kV according to patient size, and/or use of iterative recon struction technique. FINDINGS: Heart size normal. No pericardial effusion. Thoracic aorta unremarkable without evidence of dissection, aneurysm, or atherosclerotic plaque. Small right basilar acute pulmonary embolism. Central tracheobronchial tree unremarkable. Two, adjacent, small, airspace, right posterior basilar lung opacities. No pleural effusion or pneumothorax. Bones unremarkable. IMPRESSION: 1. Small acute pulmonary embolism. 2. Two, adjacent, small, airspace, right posterior basilar lung opacities. Causes include pulmonary infarct, septic emboli, and infectious consolidation. Electronically signed by: Ori Olea MD 07/19/2022 1:50 AM PRIVATE DUTY NURSE Due to temporary technical issues with the PACS/Fluency reporting system, reports are being signed by the in house radiologists without review as a courtesy to insure prompt reporting. The interpreting radiologist is fully responsible for the content of the report.
[2022-07-19] MEDS ORDERED: ENOXAPARIN 60 MG/0.6 ML SQ SCH (21:00)
--- NOTE | 2022-07-20 06:50 | ECHO ---
HEIGHT: 5 ft 1 in WEIGHT: 130 lb 0.106 oz DATE OF STUDY: 07/19/[address]: Laura Diaz 2-DIMENSIONAL: YES M.MODE: YES DOPPLER: YES COLOR FLOW: YES TDS: PORTABLE: YES DEFINITY: BUBBLE STUDY: DIAGNOSIS: PULMONARY EMBOLISM CARDIAC HISTORY: CATHERIZATION: NO SURGERY: NO PROSTHETIC VALVE: NO PACEMAKER: NO MEASUREMENTS (cm) DIASTOLIC (NORMALS) SYSTOLIC (NORMALS) IVSd 0.9 (0.6-1.2) LA Diam 2.7 (1.9-4.0) LVEF 69% LVIDd 4.8 (3.5-5.7) LVIDs 2.9 (2.0-3.5) %FS 39% LVPWd 0.8 (0.6-1.2) Ao Diam 2.7 (2.0-3.7) 2 DIMENSIONAL ASSESSMENT: RIGHT ATRIUM: NORMAL LEFT ATRIUM: NORMAL RIGHT VENTRICLE: NORMAL LEFT VENTRICLE: NORMAL TRICUSPID VALVE: TRACE TRICUSPID REGURGITATION MITRAL VALVE: TRACE MITRAL REGURGITATION PULMONIC VALVE: NORMAL AORTIC VALVE: NORMAL PERICARDIAL EFFUSION: NONE AORTIC ROOT: NORMAL LEFT VENTRICULAR WALL MOTION: NORMAL DOPPLER/COLOR FLOW: SEE BELOW COMMENTS: 1. NORMAL LEFT VENTRICULAR EJECTION FRACTION 60-65% 2. NORMAL WALL MOTION 3. NORMAL DIASTOLIC FUNCTION 4. UNABLE TO EVALUATE RIGHT VENTRICULAR SIZE (POOR WINDOWS) BUT RIGHT VENTRICULAR FUNCTION APPEARS NORMAL 5. TRACE MITRAL REGURGITATION, TRICUSPID REGURGITATION TECHNOLOGIST: JESSICA RODRIGUEZ
== END 2022-07-19 16:58 | disposition home or self-care (01) | DRG 776 ==
LOC: ER 00:34 → ERHOLD 02:45
PROVIDERS: ADMIT Hospitalist; ATTEND Hospitalist
DX: O88.3 Obstetric pyemic and septic embolism (principal); F41.1 Generalized anxiety disorder; F17.290 Nicotine dependence, other tobacco product, uncomplicated; Z79.899 Other long term (current) drug therapy; Z28.310 Unvaccinated for COVID-19; Z20.822 Contact with and (suspected) exposure to COVID-19
CPT/HCPCS: 36415; 71275; 80053; 83880; 84145; 84484; 85025; 87040; 87811; 93005; 93306; 94760; 96372; 99285; J0692; J1650; J2270; J2405; J3370; J7050; Q9967